=== PATIENT | male | born 1940 | race Caucasian/White ===

== ENCOUNTER 2017-09-24 02:27 | Emergency (ER) | payer MEDICARE ==
[2017-09-24 02:52] VITALS: O2SAT 95
[2017-09-24 03:29] LABS: Granulocyte Absolute (ANC) 0.95 (1.4-6.9); Hematocrit 32.2 % (42-50); Mean Cell Volume 93.6 fl (78-100); Mean Corpuscular Hgb Concent. 34.2 g/dl (32-36); Mean Platelet Volume 8.9 fl (6-9.5); Platelet Count 103 K/mm3 (150-450); Red Blood Count 3.44 M/mm3 (4.1-5.6); Red Cell Distribution Width 12.4 % (11.5-14.0); White Blood Count 2.5 K/mm3 (4.0-10.5)
[2017-09-24] MEDS ORDERED: Sodium Chloride 0.9% 1000 ML 1,000 ML IV SCH (03:30)
[2017-09-24] MEDS ORDERED: Sodium Chloride 0.9% 1000 ML 1,000 ML ONE (03:35)
--- NOTE | 2017-09-24 03:37 | ERPHSYRPT ---
- History of Present Illness Time Seen by Provider: 09/24/17 02:46 Historian: patient Exam Limitations: clinical condition Patient Subjective Stated Complaint: had a barium enema on monday. unable to pass stool tonight. brought a small piece of barium colored stool. states strained until small amount of bleeding. Triage Nursing Assessment: appears uncomfortable.. SOB with exertion. abdomen soft but tender on palpation. sstates rectal pain at this time.. unable to pass hard stool. Physician History: PATIENT WITH A HISTORY OR HIATAL HERNIA UNDER WENT A BARIUM ENEMA 4 DAYS AGO AND COMPLAINS OF CONSTIPATION X 3-4 DAYS. DENIES EMESIS ORD FEVER. Timing/Duration: day(s) Activities at Onset: none Quality: fullness (IN RECTUM) Abdominal Pain Onset Location: LLQ Pain Radiation: no radiation Severity of Pain-Max: mild Severity of Pain-Current: mild Modifying Factors: Improves With: defecating Previous symptoms: same symptoms as today Allergies/Adverse Reactions: No Known Drug Allergies Allergy (Unverified 07/06/17 08:58) Home Medications: Aspirin EC 81 mg [Ecotrin 81 mg] 81 mg PO DAILY 07/06/17 [History] Citalopram Hydrobromide [Citalopram HBr] 40 mg PO DAILY 07/06/17 [History] Clopidogrel Bisulfate [Plavix] 75 mg PO DAILY 07/06/17 [History] Cyclobenzaprine HCl 10 mg [Cyclobenzaprine 10 MG] 10 mg PO BID 07/06/17 [ History] Docusate Sodium [Stool Softener] 50 mg PO DAILY PRN PRN 07/06/17 [History] Donepezil HCl [Aricept] 5 mg PO DAILY 07/06/17 [History] Hydrocodone Bit/Acetaminophen [Hydrocodon-Acetaminophn 10-325] 1 each PO Q4- 6HPRN PRN 07/06/17 [History] Lisinopril 20 mg [Zestril 20 MG] 20 mg PO DAILY 07/06/17 [History] PANTOPRAZOLE 40 mg Tablet [Protonix 40MG Tablet] 40 mg PO DAILY 07/06/17 [ History] Psyllium Husk/Aspartame [Metamucil Fiber Singles Packet] 3.4 gm PO DAILY [History] Simvastatin 40 mg [Zocor 40 mg] 40 mg PO DAILY 07/06/17 [History] Diclofenac Sodium Gel [Voltaren GEL] 100 gm TP TID PRN 09/24/17 [History] Meclizine HCl 25 mg [Antivert 25 mg] 12.5 mg PO TID PRN 09/24/17 [History] Immunizations Up to Date: (unknown) - Review of Systems Constitutional: No Fever, No Chills Eyes: No Symptoms Ears, Nose, & Throat: No Symptoms Respiratory: No Cough, No Dyspnea Cardiac: No Symptoms, No Chest Pain, No Edema, No Syncope Abdominal/Gastrointestinal: Abdominal Pain, Constipation, No Nausea, No Vomiting , No Diarrhea Genitourinary Symptoms: No Symptoms, No Dysuria Musculoskeletal: No Symptoms, No Back Pain, No Neck Pain Skin: No Rash Neurological: No Dizziness, No Focal Weakness, No Sensory Changes Psychological: No Symptoms Endocrine: No Symptoms All Other Systems: Reviewed and Negative - Past Medical History Pertinent Past Medical History: Yes Neurological History: Dementia, Stroke, TIA ENT History: Cataracts Cardiac History: Coronary Artery Disease, High Cholesterol, Hypertension, Myocardial Infarction ([place]) Respiratory History: No Pertinent History Endocrine Medical History: No Pertinent History Musculoskeletal History: Arthritis GI Medical History: GERD History: No Pertinent History Psycho-Social History: No Pertinent History Male Reproductive Disorders: No Pertinent History - Past Surgical History Past Surgical History: Yes Neuro Surgical History: No Pertinent History Cardiac: Cardiac Catheterization, Cardiac Stent Respiratory: No Pertinent History Gastrointestinal: Hernia Repair Genitourinary: No Pertinent History Musculoskeletal: No Pertinent History Male Surgical History: No Pertinent History - Social History Smoking Status: Never smoker Exposure to second hand smoke: No Drug Use: none Patient Lives Alone: No - Nursing Vital Signs Nursing Vital Signs: Initial Vital Signs Temperature 97.8 F 09/24/17 02:36 Pulse Rate 89 09/24/17 02:36 Respiratory Rate 20 09/24/17 02:36 Blood Pressure 145/76 09/24/17 02:36 O2 Sat by Pulse Oximetry 95 09/24/17 02:36 Pain Scale Pain Intensity 0 - Physical Exam General Appearance: no apparent distress, alert Eye Exam: PERRL/EOMI, eyes nml inspection Ears, Nose, Throat Exam: normal ENT inspection, pharynx normal, moist mucous membranes Neck Exam: normal inspection, non-tender, supple, full range of motion Respiratory Exam: normal breath sounds, lungs clear, No respiratory distress Cardiovascular Exam: regular rate/rhythm, normal heart sounds Gastrointestinal/Abdomen Exam: soft, normal bowel sounds (LEFT LOWER QUAD TENDERNESS), No tenderness, No mass Rectal Exam: normal rectal tone, other (FIRM STOOL IN RECTAL VAULT) Back Exam: normal inspection, normal range of motion, No CVA tenderness, No vertebral tenderness Extremity Exam: normal inspection, normal range of motion, pelvis stable Neurologic Exam: alert, oriented x 3, cooperative, normal mood/affect, nml cerebellar function, sensation nml, No motor deficits Skin Exam: normal color, warm, dry SpO2 Interpretation: normal SpO2: 95 Oxygen Delivery: Room Air - CT Exams Abdomen/Pelvis CT Interpretation: Tele-radiologist Report (LARGE HIATAL HERNIA, NO SMALL BOWEL OBSTRUCTION. NO FLUID COLLECTION) Ordered Tests: Active Orders 24 hr Category Date Time Status IV Insertion STAT Care 09/24/17 03:15 Active ABDOMEN AND PELVIS W CONTRAST [CT] Stat Exams 09/24/17 03:15 Taken BMP Stat Lab 09/24/17 03:15 Completed CBC W DIFF Stat Lab 09/24/17 03:15 Completed Manual Differential NC Stat Lab 09/24/17 03:15 Completed UA W/RFX UR CULTURE Stat Lab 09/24/17 03:15 Ordered Medication Summary Generic Name Dose Route Start Last Admin Trade Name Freq PRN Reason Stop Dose Admin Sodium Chloride 1,000 mls @ 200 mls/hr 09/24/17 03:30 09/24/17 03:37 Sodium Chloride 0.9% 1000 Ml IV 10/24/17 03:29 200 mls/hr .Q5H MEET Administration Lab/Rad Data: Laboratory Result Diagrams 09/24/17 03:15 09/24/17 03:15 Laboratory Results 09/24/17 09/24/17 Range/Units 03:15 03:15 WBC 2.5 L (4.0-10.5) K/mm3 RBC 3.44 L (4.1-5.6) M/mm3 Hgb 11.0 L (12.5-18.0) gm/dl Hct 32.2 L (42-50) % MCV 93.6 (78-100) fl MCH 31.9 (26-32) pg MCHC 34.2 (32-36) g/dl RDW 12.4 (11.5-14.0) % Plt Count 103 L (150-450) K/mm3 MPV 8.9 (6-9.5) fl Sodium 127 L (136-145) mEq/L Potassium 4.5 (3.5-5.1) mEq/L Chloride 95 L (98-107) mEq/L Carbon Dioxide 28.3 (21-32) mEq/L Anion Gap 8.0 (5-15) MEQ/L BUN 18 (9-20) mg/dL Creatinine 1.27 (0.55-1.30) mg/dl Estimated GFR 58 ML/MIN Glucose 95 (70-110) MG/DL Calcium 8.8 (8.5-10.1) mg/dL - Progress Progress: improved Progress Note: 09/24/17 04:59 IMPROVED AFTER SOAP SUDS ENEMA Counseled pt/family regarding: lab results, diagnosis, need for follow-up, rad results - Departure Time of Disposition: 05:03 Departure Disposition: Home Clinical Impression: CONSTIPATION Condition: Stable Critical Care Time: No Referrals: HARDEEP VENTURA MD [Primary Care Provider] - Additional Instructions: CONTINUE ALL CURRENT MEDICATIONS. FOLLOWUP WITH YOUR FAMILY PHYSICIAN AND TRAVEL DIRECTOR.
[2017-09-24 03:44] LABS: Calcium 8.8 mg/dL (8.5-10.1); Carbon Dioxide 28.3 mEq/L (21-32); Creatinine 1 1.27 mg/dl (0.55-1.30); Potassium 4.5 mEq/L (3.5-5.1)
[2017-09-24 03:45] LABS: Mean Corpuscular Hemoglobin 31.9 pg (26-32)
[2017-09-24 05:41] VITALS: BP 108/68; PULSE 70
[2017-09-24 08:00] LABS: Hypochromia 1+; Lymphocytes 49 % (24-44); Monocyte 6 % (0.0-12.0); Neutrophils 45 % (36.-66.); Platelet Estimate NORMAL (NORMAL); Poikilocytosis 1+; Total Cells Counted 100
--- NOTE | 2017-09-24 09:04 | XRAY ---
Indication: Rectal bleeding. Constipation. Multiple contiguous axial images obtained through the abdomen and pelvis using 80 cc Isovue 370 contrast only. Comparison: January 14, 2011. Lung bases demonstrates minimal bibasilar dependent atelectasis. No infiltrate or effusion. Heart is not enlarged. Large right hernia with partial intrathoracic stomach. Dense colonic barium throughout produces extreme beam artifact limiting the study. Stomach and bowel loops appear nonobstructed. Now large free fluid/air. A few bilateral renal cysts, largest on the left measuring 1.7 cm. Previous right inguinal hernia repair. Remaining liver, gallbladder, pancreas, spleen, adrenal glands, kidneys, and bladder appear unremarkable. Mild scattered aortoiliac calcifications without AAA. Osseous structures intact again with moderate degenerative changes throughout the spine. Impression: 1. Limited exam due to diffuse dense colonic barium producing beam artifact. 2. No gross acute intra-abdominal/pelvic abnormalities. 3. Large hiatal hernia and bilateral renal cysts. Comment: Preliminary interpretation was made by [facility]. No discrepancy. CTDI 21.72
== END 2017-09-24 05:20 | disposition home or self-care (01) ==
LOC: ED 02:27
DX: K59.00 Constipation, unspecified (principal); R10.32 Left lower quadrant pain; Z79.899 Other long term (current) drug therapy
CPT/HCPCS: 36000; 36415; 74177; 80048; 85025; 96360; 99283; 99284

== ENCOUNTER 2017-11-29 22:44 | Emergency (ER) | payer MEDICARE ==
[2017-11-29 23:05] VITALS: BP 122/84; PULSE 73; O2SAT 99
--- NOTE | 2017-11-29 23:35 | ERPHSYRPT ---
- History of Present Illness Time Seen by Provider: 11/29/17 23:15 Source: patient, family Exam Limitations: clinical condition Patient Subjective Stated Complaint: Swelling to right hand, denies injury. States finger are sore distal to site. Triage Nursing Assessment: Pt presents to the ED with complaints of right hand swelling that began today at approximately 1800. Pt states no known injury to hand. Pt states fingers are sore distal to swelling. No fevers, no wound, no drainage noted. No distress noted at this time. Skin PWD. Physician History: PATIENT WITH A HISTORY OF HYPERTENSION, COMPLAINS OF ACUTE ONSET OF RIGHT HAND SWELLING WITH REDNESS AT 6 PM TONIGHT. DENIES INJURY OR TRAUMA. HAS PAIN OVER HAND UPON RANGE OF MOTION OF FINGERS. Occurred: just prior to arrival Method of Injury: unknown Quality: constant Severity of Pain-Max: mild Severity of Pain-Current: mild Extremities Pain Location: hand: right Associated Symptoms: none Allergies/Adverse Reactions: No Known Drug Allergies Allergy (Unverified 07/06/17 08:58) Home Medications: Aspirin EC 81 mg [Ecotrin 81 mg] 81 mg PO DAILY 07/06/17 [History] Citalopram Hydrobromide [Citalopram HBr] 40 mg PO DAILY 07/06/17 [History] Clopidogrel Bisulfate [Plavix] 75 mg PO DAILY 07/06/17 [History] Cyclobenzaprine HCl 10 mg [Cyclobenzaprine 10 MG] 10 mg PO BID 07/06/17 [ History] Docusate Sodium [Stool Softener] 50 mg PO DAILY PRN PRN 07/06/17 [History] Donepezil HCl [Aricept] 5 mg PO DAILY 07/06/17 [History] Hydrocodone Bit/Acetaminophen [Hydrocodon-Acetaminophn 10-325] 1 each PO Q4- 6HPRN PRN 07/06/17 [History] Lisinopril 20 mg [Zestril 20 MG] 20 mg PO DAILY 07/06/17 [History] PANTOPRAZOLE 40 mg Tablet [Protonix 40MG Tablet] 40 mg PO DAILY 07/06/17 [ History] Psyllium Husk/Aspartame [Metamucil Fiber Singles Packet] 3.4 gm PO DAILY [History] Simvastatin 40 mg [Zocor 40 mg] 40 mg PO DAILY 07/06/17 [History] Diclofenac Sodium Gel [Voltaren GEL] 100 gm TP TID PRN 09/24/17 [History] Meclizine HCl 25 mg [Antivert 25 mg] 12.5 mg PO TID PRN 09/24/17 [History] Hx Tetanus, Diphtheria Vaccination/Date Given: Yes Hx Influenza Vaccination/Date Given: Yes Hx Pneumococcal Vaccination/Date Given: Yes Immunizations Up to Date: Yes - Review of Systems Constitutional: No Fever, No Chills Eyes: No Symptoms Ears, Nose, & Throat: No Symptoms Respiratory: No Cough, No Dyspnea Cardiac: No Chest Pain, No Edema, No Syncope Abdominal/Gastrointestinal: No Abdominal Pain, No Nausea, No Vomiting, No Diarrhea Genitourinary Symptoms: No Dysuria Musculoskeletal: Joint Pain, Joint Swelling, No Back Pain, No Neck Pain Skin: No Rash Neurological: No Dizziness, No Focal Weakness, No Sensory Changes Psychological: No Symptoms Endocrine: No Symptoms All Other Systems: Reviewed and Negative - Past Medical History Pertinent Past Medical History: Yes Neurological History: Dementia, Stroke, TIA ENT History: Cataracts Cardiac History: Coronary Artery Disease, High Cholesterol, Hypertension, Myocardial Infarction ([place]) Respiratory History: No Pertinent History Endocrine Medical History: No Pertinent History Musculoskeletal History: Arthritis GI Medical History: GERD History: No Pertinent History Psycho-Social History: No Pertinent History Male Reproductive Disorders: No Pertinent History - Past Surgical History Past Surgical History: Yes Neuro Surgical History: No Pertinent History Cardiac: Cardiac Catheterization, Cardiac Stent Respiratory: No Pertinent History Gastrointestinal: Hernia Repair Genitourinary: No Pertinent History Musculoskeletal: No Pertinent History Male Surgical History: No Pertinent History - Social History Smoking Status: Never smoker Exposure to second hand smoke: No Drug Use: none Patient Lives Alone: No - Nursing Vital Signs Nursing Vital Signs: Initial Vital Signs Temperature 98.7 F 11/29/17 23:01 Pulse Rate 73 11/29/17 23:01 Respiratory Rate 16 11/29/17 23:01 Blood Pressure 122/84 11/29/17 23:01 O2 Sat by Pulse Oximetry 99 11/29/17 23:01 Pain Scale Pain Intensity 3 - Physical Exam General Appearance: no apparent distress Hand Exam: soft tissue tenderness, swelling (SLIGHT ECCHYMOSIS MID TO DISTAL 3RD TO 4TH METACARPAL EXTENDS TO MCP JOINTS WITH SWELLILNG AND TENDERNESS.) SpO2 Interpretation: normal SpO2: 99 Oxygen Delivery: Room Air - Radiology Exams Right Hand X-ray Interpretation: Interpreted by me, Negative, No Fracture (SOFT TISSUE SWELLING, IVY DEGENERATIVE ARTHRITIS) Ordered Tests: Active Orders 24 hr Category Date Time Status HAND (MINIMUM 3 VIEWS) Stat Exams 11/30/17 00:17 Taken Uric Acid Stat Lab 11/29/17 23:35 Completed Lab/Rad Data: Laboratory Results 11/30/17 Range/Units 00:05 Uric Acid 4.8 (3.5-7.2) mg/dL - Progress Counseled pt/family regarding: lab results, diagnosis, need for follow-up - Departure Time of Disposition: 01:43 Departure Disposition: Home Clinical Impression: CONTUSION RIGHT HAND Condition: Stable Critical Care Time: No Referrals: HARDEEP VENTURA MD [Primary Care Provider] - Additional Instructions: CONTINUE ALL CURRENT MEDICATIONS, HOLD ASPIRIN FOR 5 DAYS BUT CONTINUE PLAVIX. APPLY ICE OVER HAND SWELLING EVERY 4 HOURS, 30 MINUTES FOR 48 HOURS . CONSULT YOUR PRIMARY CARE PROVIDER FOR FOLLOWUP IN 5-7 DAYS. TYLENOL EVERY 4 HOURS NEEDED FOR PAIN.
--- NOTE | 2017-11-30 09:05 | XRAY ---
Indication: Swelling and erythema. No known injury. Comparison: None 3 views of the right hand demonstrates moderate degenerative changes of the 1/2/3 MCP joints with lesser degree of the remaining MCP. Advanced degenerative changes of the 1st metacarpal multangular articulation with heterotopic ossification. Mild degenerative changes of all IP joints. No acute fracture, dislocation, or soft tissue abnormalities. Impression: Degenerative changes. Nothing acute.
== END 2017-11-30 01:49 | disposition home or self-care (01) ==
LOC: ED 22:44
DX: S60.221A Contusion of right hand, initial encounter (principal); M79.641 Pain in right hand; Z79.01 Long term (current) use of anticoagulants; Z79.899 Other long term (current) drug therapy
CPT/HCPCS: 36415; 73130; 84550; 99281; 99283

== ENCOUNTER 2018-02-06 07:12 | Day surgery (SDC) | payer MEDICARE ==
[~2018-02-06 07:12] MED LIST: Lactated Ringers 1,000 ML IV ONE
[2018-02-06] MEDS ORDERED: DIPRIVAN 200 MG/20 ML IV ONE (07:13)
[2018-02-06] MEDS ORDERED: Lactated Ringers 1,000 ML IV SCH (08:00)
[2018-02-06] MEDS ORDERED: TETRACAINE 0.5% STERI-UNIT SOL OP ONE ×2 (08:00)
[2018-02-06] MEDS ORDERED: Ak-Dilate OPHTHALMIC*** 0.71 ML, Cyclogyl 1% OPHTH SOL 5 ML 0.71 ML, GATIFLOXACIN 0.5% ... OP ONE ×4 (08:00)
[2018-02-06] MEDS ORDERED: Epinephrine Preservative Free 1 MG/ML INTRAOP ONE (09:15)
[2018-02-06] MEDS ORDERED: BETADINE 5% OPHTHALMIC 30 ML OP ONE (09:15)
[2018-02-06] MEDS ORDERED: LIDOCAINE HCL 1% AMPUL 5 ML IJ ONE (09:15)
[2018-02-06] MEDS ORDERED: BSS 500 ML, Fortaz/Tazicef 1 GM** 0.2 G IO ONE ×2 (09:15)
[2018-02-06 10:42] VITALS: O2SAT 99
[2018-02-06 10:56] VITALS: BP 132/66; PULSE 71
[2018-02-06] MEDS ORDERED: ACETAZOLAMIDE 250 MG TABLET PO ONE (11:00)
[2018-02-06] MEDS ORDERED: Zofran 4 MG/2 ML VIAL IV PRN (11:00)
--- NOTE | 2018-02-07 08:58 | OP ---
DATE/TIME OF OPERATION: 02/06/2018 0945 TIME DICTATED: 1246 PREOPERATIVE DIAGNOSIS: Senile cataract of left eye. POSTOPERATIVE DIAGNOSIS: Senile cataract of left eye. SURGEON: Cory Marina MD INSOLE TAPE STITCHER UCO: NONE OPERATION: Cataract extraction of left eye with an intraocular lens implant STANDARD __X___ COMPLEX ANESTHESIA: __X____ Monitored anesthesia care in combination with topical and intra-cameral anesthesia (because of the established specific risk of reflux, arrhythmias, or an anxiety attack associated with ocular manipulation as well as difficulty of the doctor of podiatry to manage such potentially catastrophic events while simultaneously attempting to complete the surgical procedure, it was deemed necessary for the patient's safety to have an anesthesiologist or a nurse heel seat sander present during the procedure whenever possible. The anesthesiologist or the nurse heel seat sander was utilized to monitor and regulate the intravenous sedation of the patient, so the patient was cooperative, relaxed, and comfortable). Topical anesthesia using Tetracaine eye drops together with intra cameral anesthesia using Lidocaine 1% MPF. The nurse was utilized to monitor the patient. ANESTHESIA PROVIDER: Barrera Redman CRNA. COMPLICATIONS: None. BLOOD LOSS: None INDICATIONS: The patient is undergoing cataract surgery in the hopes of eliminating the visual complaints and difficulty. PROCEDURE: After arriving at the facility's outpatient surgery area, an IV was started; the patient was given 5 mg of p.o. Versed. (If an anesthesia provider was not monitoring the patient) The patient was then given topical anesthetic Tetracaine eye drops. A cotton pellet was soaked into a solution of a combination of Zymaxid 0.5%, Chidi-Synephrine 2.5% and Ocufen (other drops might have been substituted referenced in the patient's record). The pellet was inserted by the RN into the lower conjunctival cul-de-sac with a sterile forceps and left for 20 minutes. The pellet was then removed by the RN with a sterile forceps before taking the patient to the operating room. The preoperative area nurse identified the patient and marked the correct eye to be operated on. I identified the correct eye to be operated on and marked it appropriately in the outpatient surgery area. The patient was then taken into the operating room. Tetracaine eye drops were installed again in the correct eye. The eyelids and the lashes and the lid margins were scrubbed with Betadine solution. One drop of the diluted Betadine solution was placed in the conjunctival cul-de-sac for 45 seconds and then was irrigated. A drop of Tetracaine Gel was placed in the conjunctival cul-de-sac. The patient's forehead was taped to secure it during the procedure. The patient was monitored. The patient was then draped in the usual way for this procedure. An eye speculum was used to separate the eyelids. The eye was then fixated and a temporal 2.5 mm incision was made in the clear cornea temporally at the limbus. Through the incision, 0.25 cc of 1% non-preserved lidocaine was injected into the anterior chamber for intracameral anesthesia. The anterior chamber was then filled with viscoelastic. The pupil was small. I felt that it would be safer to mechanically dilate the pupil. A Malyugin ring was used at this point which dilated the pupil. That was removed at the end of the procedure prior to aspiration of the viscoelastic from the anterior chamber and posterior to the intraocular lens implant. The cataract had a great amount of cortical changes. That rendered seeing the anterior capsule difficult for a safe performance of an anterior capsulotomy. I injected an air bubble into the anterior chamber. I then injected 1 ML of vision blue solution into the anterior chamber. The vision blue solution was irrigated from the anterior chamber after 30 seconds. The anterior capsule was stained which facilitated performing the anterior capsulotomy safely. After that was completed, a cystotome was introduced into the anterior chamber and a round anterior capsulotomy was performed. The capsule was removed by a forceps. Hydrodissection was next carried utilizing a 25-gauge cannula and balanced salt solution to delineate the cortical material from the capsule and the nucleus from the cortical material. The nucleus was rotated freely into the capsular bag with no difficulty. The phaco tip of the [employer] Phacoemulsifier was introduced into the anterior chamber and two grooves were made into the nucleus 90 degrees apart. Using two spatulas resulted into the nucleus being fractured into four quadrants. The phaco tip was then used to remove each quadrant of the nucleus. Viscoelastic was used during this process to protect the corneal endothelium. Once the entire nucleus was removed, the phaco tip then was removed and the irrigation tip was introduced into the eye and the cortex was removed. The posterior capsule was polished. It was noticed that there was a tear into the posterior capsule with few vitreous strands into the pupil plan. An anterior vitrectomy was performed. A 22.00 diopter, [id number], posterior chamber lens implant, was inspected and found to be grossly normal. The implant was inserted into the implant injector cartridge; Viscoelastic again was introduced into the anterior chamber, which filled the capsular bag. The implant injector's cartridge tip was placed at the limbal wound and the posterior chamber implant was released into the capsular bag and rotated appropriately. The implant was found to be into the capsular bag and it was centered. __X___ 0.2 ml of Tri-Moxi was introduced via 27 gauge cannula into the vitreous cavity through the ciliary processes. Viscoelastic was aspirated from the anterior chamber and posterior to the intraocular lens implant from the capsular bag using the irrigating tip. The anterior chamber was irrigated and filled with 5 cc antibiotic solution (500 cc of BSS plus 2 ml of Fortaz 100 mg/ml) ( if patient was not allergic to the medication). The lips of the corneal incision were hydrated using BSS solution. The anterior chamber was checked and found to be water tight. One drop each of antibiotic, steroid and NSAID drops (refer to chart for drops used) were placed in the conjunctival cul-de-sac of the operated eye. Patient tolerated the procedure quite well and left the operating room in satisfactory condition. DISCHARGE SUMMARY: The patient was released in stable condition. The patient and those with the patient were given an instruction sheet as of how to care for the eye after surgery as well as counseling on any abnormal laboratory studies by the postoperative RN. The patient was also given an appointment card for follow-up in the office and is to call immediately for any difficulties including but not limited to pain in the eye, decreased vision, discharge from the eye, headache and or fever. DISCHARGE DIAGNOSIS: Pseudophakia of left eye
== END 2018-02-06 11:10 | disposition home or self-care (01) ==
LOC: SDC 07:12
PROVIDERS: ATTEND Ophthalmology
DX: H25.9 Unspecified age-related cataract (principal); I51.9 Heart disease, unspecified; E78.00 Pure hypercholesterolemia, unspecified; I10 Essential (primary) hypertension; K21.9 Gastro-esophageal reflux disease without esophagitis; Z79.899 Other long term (current) drug therapy
CPT/HCPCS: 66984; C1780; 99100; J0171; J2704; A9270-GY

== ENCOUNTER 2018-03-06 07:41 | Day surgery (SDC) | payer MEDICARE ==
[2018-03-06] MEDS ORDERED: DIPRIVAN 200 MG/20 ML IV ONE (07:42)
[2018-03-06] MEDS ORDERED: TETRACAINE 0.5% STERI-UNIT SOL OP ONE ×2 (08:00)
[2018-03-06] MEDS ORDERED: Ak-Dilate OPHTHALMIC*** 0.71 ML, Cyclogyl 1% OPHTH SOL 5 ML 0.71 ML, GATIFLOXACIN 0.5% ... OP ONE ×4 (08:00)
[2018-03-06] MEDS ORDERED: Lactated Ringers 1,000 ML IV SCH (08:00)
[2018-03-06] MEDS ORDERED: Lactated Ringers 1,000 ML IV ONE (08:01)
[2018-03-06] MEDS ORDERED: Zofran 4 MG/2 ML VIAL IV PRN (10:00)
[2018-03-06] MEDS ORDERED: ACETAZOLAMIDE 250 MG TABLET PO ONE (10:00)
[2018-03-06] MEDS ORDERED: LIDOCAINE HCL 1% AMPUL 5 ML IJ ONE (12:00)
[2018-03-06] MEDS ORDERED: Epinephrine Preservative Free 1 MG/ML INTRAOP ONE (12:00)
[2018-03-06] MEDS ORDERED: BSS 500 ML, Fortaz/Tazicef 1 GM** 0.2 G IO ONE ×2 (12:00)
[2018-03-06] MEDS ORDERED: BETADINE 5% OPHTHALMIC 30 ML OP ONE (12:00)
[2018-03-06 12:15] VITALS: BP 132/77; O2SAT 95
[2018-03-06 12:23] VITALS: PULSE 60
--- NOTE | 2018-03-06 13:37 | OP ---
DATE/TIME OF OPERATION: 03/06/2018 1049 TIME DICTATED: 1258 PREOPERATIVE DIAGNOSIS: Senile cataract of right eye. POSTOPERATIVE DIAGNOSIS: Senile cataract of right eye. SURGEON: Cory Marina MD BICYCLE REPAIR TECHNICIAN: None. OPERATION: Cataract extraction of right eye with an intraocular lens implant. STANDARD __X___ COMPLEX ANESTHESIA: MAC. ___X___ Monitored anesthesia care in combination with topical and intra-cameral anesthesia (because of the established specific risk of reflux, arrhythmias, or an anxiety attack associated with ocular manipulation as well as difficulty of the quality assurance/r&d lab technician to manage such potentially catastrophic events while simultaneously attempting to complete the surgical procedure, it was deemed necessary for the patient's safety to have an anesthesiologist or a nurse accounting associate present during the procedure whenever possible. The anesthesiologist or the nurse accounting associate was utilized to monitor and regulate the intravenous sedation of the patient, so the patient was cooperative, relaxed, and comfortable). Topical anesthesia using Tetracaine eye drops together with intra cameral anesthesia using Lidocaine 1% MPF. The nurse was utilized to monitor the patient. ANESTHESIA PROVIDER: Walter Redman CRNA. COMPLICATIONS: None. BLOOD LOSS: None. INDICATIONS: The patient is undergoing cataract surgery in the hopes of eliminating the visual complaints and difficulty. PROCEDURE: After arriving at the facility's outpatient surgery area, an IV was started; the patient was given 5 mg of p.o. Versed. (If an anesthesia provider was not monitoring the patient) The patient was then given topical anesthetic Tetracaine eye drops. A cotton pellet was soaked into a solution of a combination of Zymaxid 0.5%, Chidi-Synephrine 2.5% and Ocufen (other drops might have been substituted referenced in the patient's record). The pellet was inserted by the RN into the lower conjunctival cul-de-sac with a sterile forceps and left for 20 minutes. The pellet was then removed by the RN with a sterile forceps before taking the patient to the operating room. The preoperative area nurse identified the patient and marked the correct eye to be operated on. I identified the correct eye to be operated on and marked it appropriately in the outpatient surgery area. The patient was then taken into the operating room. Tetracaine eye drops were installed again in the correct eye. The eyelids and the lashes and the lid margins were scrubbed with Betadine solution. One drop of the diluted Betadine solution was placed in the conjunctival cul-de-sac for 45 seconds and then was irrigated. A drop of Tetracaine Gel was placed in the conjunctival cul-de-sac. The patient's forehead was taped to secure it during the procedure. The patient was monitored. The patient was then draped in the usual way for this procedure. An eye speculum was used to separate the eyelids. The eye was then fixated and a temporal 2.5 mm incision was made in the clear cornea temporally at the limbus. Through the incision, 0.25 cc of 1% non-preserved lidocaine was injected into the anterior chamber for intracameral anesthesia. The anterior chamber was then filled with viscoelastic. The pupil was small. I felt that it would be safer to mechanically dilate the pupil. A Malyugin ring was used at this point which dilated the pupil. That was removed at the end of the procedure prior to aspiration of the viscoelastic from the anterior chamber and posterior to the intraocular lens implant. The cataract had a great amount of cortical changes. That rendered seeing the anterior capsule difficult for a safe performance of an anterior capsulotomy. I injected an air bubble into the anterior chamber. I then injected 1 ML of vision blue solution into the anterior chamber. The vision blue solution was irrigated from the anterior chamber after 30 seconds. The anterior capsule was stained which facilitated performing the anterior capsulotomy safely. After that was completed, a cystotome was introduced into the anterior chamber and a round anterior capsulotomy was performed. The capsule was removed by a forceps. Hydrodissection was next carried utilizing a 25-gauge cannula and balanced salt solution to delineate the cortical material from the capsule and the nucleus from the cortical material. The nucleus was rotated freely into the capsular bag with no difficulty. The phaco tip of the [employer] Phacoemulsifier was introduced into the anterior chamber and two grooves were made into the nucleus 90 degrees apart. Using two spatulas resulted into the nucleus being fractured into four quadrants. The phaco tip was then used to remove each quadrant of the nucleus. Viscoelastic was used during this process to protect the corneal endothelium. Once the entire nucleus was removed, the phaco tip then was removed and the irrigation tip was introduced into the eye and the cortex was removed. The posterior capsule was polished. It was noticed that there was a tear into the posterior capsule with few vitreous strands into the pupil plan. An anterior vitrectomy was performed. A 22.00 diopter, [id number], posterior chamber lens implant, was inspected and found to be grossly normal. The implant was inserted into the implant injector cartridge; Viscoelastic again was introduced into the anterior chamber, which filled the capsular bag. The implant injector's cartridge tip was placed at the limbal wound and the posterior chamber implant was released into the capsular bag and rotated appropriately. The implant was found to be into the capsular bag and it was centered. ___X__ 0.2 ml of Tri-Moxi was introduced via 27 gauge cannula into the vitreous cavity through the ciliary processes. Viscoelastic was aspirated from the anterior chamber and posterior to the intraocular lens implant from the capsular bag using the irrigating tip. The anterior chamber was irrigated and filled with 5 cc antibiotic solution (500 cc of BSS plus 2 ml of Fortaz 100 mg/ml) ( if patient was not allergic to the medication). The lips of the corneal incision were hydrated using BSS solution. The anterior chamber was checked and found to be water tight. One drop each of antibiotic, steroid and NSAID drops (refer to chart for drops used) were placed in the conjunctival cul-de-sac of the operated eye. Patient tolerated the procedure quite well and left the operating room in satisfactory condition. DISCHARGE SUMMARY: The patient was released in stable condition. The patient and those with the patient were given an instruction sheet as of how to care for the eye after surgery as well as counseling on any abnormal laboratory studies by the postoperative RN. The patient was also given an appointment card for follow-up in the office and is to call immediately for any difficulties including but not limited to pain in the eye, decreased vision, discharge from the eye, headache and or fever. DISCHARGE DIAGNOSIS: Pseudophakia of right eye.
== END 2018-03-06 12:10 | disposition home or self-care (01) ==
LOC: SDC 07:41
PROVIDERS: ATTEND Ophthalmology
DX: H25.9 Unspecified age-related cataract (principal); I51.9 Heart disease, unspecified; E78.00 Pure hypercholesterolemia, unspecified; I10 Essential (primary) hypertension; K21.9 Gastro-esophageal reflux disease without esophagitis
CPT/HCPCS: 66984; 67005; C1780; 99100; J0171; J2704; A9270-GY

== ENCOUNTER 2019-01-11 18:53 | Observation (INO) | payer MEDICARE ==
--- NOTE | 2019-01-11 19:26 | ERPHSYRPT ---
- History of Present Illness Time Seen by Provider: 01/11/19 19:10 Source: family Exam Limitations: clinical condition Patient Subjective Stated Complaint: Weakness Triage Nursing Assessment: Patient's brought back to ED via w/c and transferred with assist of 2. Patient unable to respond or answer any questions. Patient's reports at 1730 patient was up and moving, talking. He had mowed the yard earlier and even rode his four-wade to the river. Upon assessment pupils equal, but sluggish. Patient mumbling and unable to follow commands at this time. Patient had been sitting in the chair and felt sick around 1700. Blood sugar at this time 108 Physician History: Pt was sitting in a chair, when entered the room, he was leaning forward at 17:30 PM, c/o not feeling, well, nauseated, vomited once after arrival. He was doing at his normal activity level until around 17-17:30. when he suddenly became ill, he arrived with family car, had to remove from car by nursing staff , he was barely responsive, nonverbal, he is lethargic, but opens eyes and responds, with nodding and opening, closing eyes. He denies any pain, except when asking about chest pain, he nods. Timing/Duration: hour(s) (2) Severity: severe Character of Deficits: new weakness, impaired speech Deficits: no difficulties Baseline/Normal Cognition: alert oriented x 3 Current Cognition: poor alertness Baseline Gait: walks only w/assistance Associated Symptoms: nausea, vomiting, weakness (generalized) Allergies/Adverse Reactions: No Known Drug Allergies Allergy (Verified 01/11/19 19:09) Home Medications: Aspirin EC 81 mg [Ecotrin 81 mg] 81 mg PO DAILY 07/06/17 [History] Cyclobenzaprine HCl 10 mg [Cyclobenzaprine 10 MG] 10 mg PO BID 07/06/17 [ History] Hydrocodone Bit/Acetaminophen [Hydrocodon-Acetaminophn 10-325] 1 each PO Q4- 6HPRN PRN 07/06/17 [History] Lisinopril 20 mg [Zestril 20 MG] 20 mg PO DAILY 07/06/17 [History] Simvastatin 40 mg [Zocor 40 mg] 40 mg PO HS 07/06/17 [History] Donepezil HCl 10 mg [Aricept 10 MG] 5 mg PO HS 01/23/18 [History] Citalopram Hydrobromide [Citalopram HBr] 40 mg PO DAILY 03/06/18 [History] Hx Tetanus, Diphtheria Vaccination/Date Given: Yes Hx Influenza Vaccination/Date Given: Yes Hx Pneumococcal Vaccination/Date Given: Yes Immunizations Up to Date: Yes - Review of Systems All Other Systems: Unable due to condition - Past Medical History Pertinent Past Medical History: Yes Neurological History: Dementia, Stroke, TIA ENT History: Cataracts Cardiac History: Coronary Artery Disease, High Cholesterol, Hypertension, Myocardial Infarction (NH) Respiratory History: No Pertinent History Endocrine Medical History: No Pertinent History Musculoskeletal History: Arthritis GI Medical History: GERD History: No Pertinent History Psycho-Social History: No Pertinent History Male Reproductive Disorders: No Pertinent History Other Medical History: Cardiac stent x 4. - Past Surgical History Past Surgical History: Yes Neuro Surgical History: No Pertinent History Cardiac: Cardiac Catheterization, Cardiac Stent Respiratory: No Pertinent History Gastrointestinal: Hernia Repair, Other Genitourinary: No Pertinent History Musculoskeletal: No Pertinent History Male Surgical History: No Pertinent History Other Surgical History: hiatal hernia surgery - Social History Smoking Status: Never smoker Exposure to second hand smoke: No Drug Use: none Patient Lives Alone: No - Nursing Vital Signs Nursing Vital Signs: Initial Vital Signs Temperature 98.4 F 01/11/19 18:57 Pulse Rate 85 01/11/19 18:57 Respiratory Rate 20 01/11/19 18:57 Blood Pressure 167/90 01/11/19 18:57 O2 Sat by Pulse Oximetry 97 01/11/19 18:57 Pain Scale Pain Intensity 0 - Dao Coma Scale Best Eye Response (Dao): (3) open to voice Best Verbal Response (Seneca): (2) incomprehsible sounds Best Motor Response (Dao): (3) flexion to pain [place] Total: 8 - Physical Exam General Appearance: mild distress Eye Exam: bilateral eye: PERRL, EOMI Ears, Nose, Throat Exam: pharynx normal Neck Exam: normal inspection, supple, No mass, No carotid bruit, No JVD Respiratory: normal breath sounds, lungs clear, airway intact Cardiovascular: regular rate/rhythm, normal heart sounds, normal peripheral pulses, No murmur Gastrointestinal: soft, normal bowel sounds, No tenderness, No distention, No mass, No pulsatile mass Back Exam: normal inspection Extremity Exam: normal inspection, No pedal edema Peripheral Pulses: carotid (R): 3+, carotid (L): 3+, femoral (R): 3+, femoral (L ): 3+, dorsalis-pedis (R): 2+, dorsalis-pedis (L): 2+ Mental Status: lethargy ball warper tender Exam: No facial asymmetry, No facial droop Motor/Sensory: weak motor strength RUE, weak motor strength LUE, weak motor strength RLE, weak motor strength LLE DTR: bicep (R): 2+, bicep (L): 2+, knee (R): 2+, knee (L): 2+, ankle (R): 2+, ankle (L): 2+ Skin Exam: normal color, warm, dry, No rash, No petechiae, No cyanosis SpO2 Interpretation: normal SpO2: 97 O2 Delivery: Room Air - Course Nursing assessment & vital signs reviewed: Yes EKG Interpreted by Me: RATE (67/min), NORMAL AXIS, Right Bundle Branch Block, Non-specific ST Changes, Other (frequent PVC-s) - Radiology Exams Chest X-ray Interpretation: Interpreted by me, Negative - CT Exams Head CT Interpretation: Negative, Tele-radiologist Report Ordered Tests: Active Orders 24 hr Category Date Time Status Supervisor Pipe Manufacture STAT Care 01/11/19 19:21 Active EKG-ER Only STAT Care 01/11/19 19:20 Active IV Insertion STAT Care 01/11/19 19:20 Active Oxygen-ED Only Nasal Cannula 2 lpm Care 01/11/19 19:20 Active CHEST 1 VIEW (PORTABLE) Stat Exams 01/11/19 19:21 Ordered HEAD WITHOUT CONTRAST [CT] Stat Exams 01/11/19 19:22 Taken CBC W DIFF Stat Lab 01/11/19 19:15 Completed CK-Creatinine Phosphokinase Stat Lab 01/11/19 19:15 Completed CMP Stat Lab 01/11/19 19:15 Completed CULTURE,URINE Stat Lab 01/11/19 19:10 Received NT PRO BNP Stat Lab 01/11/19 19:15 Completed PROTIME WITH INR Stat Lab 01/11/19 19:15 Completed PTT Stat Lab 01/11/19 19:15 Completed TROPONIN Q3H Lab 01/11/19 19:15 Completed TROPONIN Q3H Lab 01/11/19 22:30 Ordered TROPONIN Q3H Lab 01/12/19 01:30 Ordered TROPONIN Q3H Lab 01/12/19 04:30 Ordered TROPONIN Q3H Lab 01/12/19 07:30 Ordered UA W/RFX UR CULTURE Stat Lab 01/11/19 19:10 Completed Urine Triage Profile Stat Lab 01/11/19 19:10 Completed Medication Summary Generic Name Dose Route Start Last Admin Trade Name Freq PRN Reason Stop Dose Admin Sodium Chloride 1,000 mls @ 100 mls/hr 01/11/19 20:45 01/11/19 20:46 Sodium Chloride 0.9% 1000 Ml IV 02/10/19 20:44 100 mls/hr .Q10H MEET Administration Discontinued Medications Generic Name Dose Route Start Last Admin Trade Name Freq PRN Reason Stop Dose Admin Aspirin 325 mg 01/12/19 20:35 Ecotrin 325 Mg PO 01/12/19 20:36 NOW ONE Aspirin Confirm 01/11/19 20:43 Baby Aspirin 81 Mg Chew Administered 01/11/19 20:44 Dose 324 mg .ROUTE .STK-MED ONE Aspirin 324 mg 01/11/19 20:48 01/11/19 20:49 Baby Aspirin 81 Mg Chew PO 01/11/19 20:49 324 mg STAT ONE Administration Ondansetron HCl Confirm 01/11/19 19:52 Zofran 4 Mg/2 Ml Vial Administered 01/11/19 19:53 Dose 4 mg .ROUTE .STK-MED ONE Ondansetron HCl 4 mg 01/11/19 19:58 01/11/19 20:01 Zofran 4 Mg/2 Ml Vial IV 01/11/19 19:59 4 mg STAT ONE Administration Lab/Rad Data: Laboratory Result Diagrams 01/11/19 19:15 01/11/19 19:15 Laboratory Results 01/11/19 01/11/19 01/11/19 Range/Units 19:15 19:15 19:15 WBC (4.0-10.5) K/mm3 RBC (4.1-5.6) M/mm3 Hgb (12.5-18.0) gm/dl Hct (42-50) % MCV (78-100) fl MCH (26-32) pg MCHC (32-36) g/dl RDW (11.5-14.0) % Plt Count (150-450) K/mm3 MPV (6-9.5) fl Gran % (36.0-66.0) % Eos # (Auto) (0-0.5) Absolute Lymphs (auto) (1.0-4.6) Absolute Monos (auto) (0.0-1.3) Lymphocytes % (24.0-44.0) % Monocytes % (0.0-12.0) % Eosinophils % (0.00-5.0) % Basophils % (0.0-0.4) % Absolute Granulocytes (1.4-6.9) Basophils # (0-0.4) PT 11.7 (8.83-12.87) SECONDS INR 1.01 (0.8-3.0) APTT 26.9 (24.1-36.1) SECONDS Sodium 140 (137-145) mmol/L Potassium 4.1 (3.5-5.1) mmol/L Chloride 103 (98-107) mmol/L Carbon Dioxide 24 (22-30) mmol/L Anion Gap 16.7 H (5-15) MEQ/L BUN 24 H (9-20) mg/dL Creatinine 1.08 (0.66-1.25) mg/dL Estimated GFR > 60.0 ML/MIN Glucose 112 H (74-106) mg/dL Calcium 9.8 (8.4-10.2) mg/dL Total Bilirubin 1.00 (0.2-1.3) mg/dL AST 31 (17-59) U/L ALT 16 (0-50) U/L Alkaline Phosphatase 77 (38-126) U/L Creatine Kinase 88 (55-170) U/L Troponin I < 0.012 (0.000-0.034) ng/mL NT-Pro-B Natriuret Pep 537 (0-1800) pg/mL Serum Total Protein 8.0 (6.3-8.2) g/dL Albumin 4.7 (3.5-5.0) g/dL Urine Color (YELLOW) Urine Appearance (CLEAR) Urine pH (5-6) Ur Specific [place] (1.005-1.025) Urine Protein (Negative) Urine Ketones (NEGATIVE) Urine Blood (0-5) Corey/ul Urine Nitrite (NEGATIVE) Urine Bilirubin (NEGATIVE) Urine Urobilinogen (0-1) mg/dL Ur Leukocyte Esterase (NEGATIVE) Urine WBC (Auto) (0-5) /HPF Urine RBC (Auto) (0-2) /HPF U Epithel Cells (Auto) (FEW) /HPF Urine Bacteria (Auto) (NEGATIVE) /HPF Urine Mucus (Auto) (NEGATIVE) /HPF Urine Culture Reflexed (NO) Urine Glucose (NEGATIVE) mg/dL Urine Opiates Level (NEGATIVE) Ur Methadone (NEGATIVE) Urine Barbiturates (NEGATIVE) Ur Phencyclidine (PCP) (NEGATIVE) Urine Amphetamine (NEGATIVE) U Benzodiazepine Level (NEGATIVE) Urine Cocaine (NEGATIVE) Urine Marijuana (THC) (NEGATIVE) 01/11/19 01/11/19 01/11/19 Range/Units 19:15 19:10 19:10 WBC 3.6 L (4.0-10.5) K/mm3 RBC 4.39 (4.1-5.6) M/mm3 Hgb 13.9 (12.5-18.0) gm/dl Hct 42.0 (42-50) % MCV 95.7 (78-100) fl MCH 31.7 (26-32) pg MCHC 33.1 (32-36) g/dl RDW 13.1 (11.5-14.0) % Plt Count 131 L (150-450) K/mm3 MPV 9.6 H (6-9.5) fl Gran % 53.1 (36.0-66.0) % Eos # (Auto) 0.04 (0-0.5) Absolute Lymphs (auto) 1.07 (1.0-4.6) Absolute Monos (auto) 0.55 (0.0-1.3) Lymphocytes % 30.1 (24.0-44.0) % Monocytes % 15.4 H (0.0-12.0) % Eosinophils % 1.1 (0.00-5.0) % Basophils % 0.3 (0.0-0.4) % Absolute Granulocytes 1.89 (1.4-6.9) Basophils # 0.01 (0-0.4) PT (8.83-12.87) SECONDS INR (0.8-3.0) APTT (24.1-36.1) SECONDS Sodium (137-145) mmol/L Potassium (3.5-5.1) mmol/L Chloride (98-107) mmol/L Carbon Dioxide (22-30) mmol/L Anion Gap (5-15) MEQ/L BUN (9-20) mg/dL Creatinine (0.66-1.25) mg/dL Estimated GFR ML/MIN Glucose (74-106) mg/dL Calcium (8.4-10.2) mg/dL Total Bilirubin (0.2-1.3) mg/dL AST (17-59) U/L ALT (0-50) U/L Alkaline Phosphatase (38-126) U/L Creatine Kinase (55-170) U/L Troponin I (0.000-0.034) ng/mL NT-Pro-B Natriuret Pep (0-1800) pg/mL Serum Total Protein (6.3-8.2) g/dL Albumin (3.5-5.0) g/dL Urine Color YELLOW (YELLOW) Urine Appearance CLEAR (CLEAR) Urine pH 5.0 (5-6) Ur Specific [place] 1.016 (1.005-1.025) Urine Protein NEGATIVE (Negative) Urine Ketones NEGATIVE (NEGATIVE) Urine Blood MODERATE (0-5) Corey/ul Urine Nitrite NEGATIVE (NEGATIVE) Urine Bilirubin NEGATIVE (NEGATIVE) Urine Urobilinogen NEGATIVE (0-1) mg/dL Ur Leukocyte Esterase NEGATIVE (NEGATIVE) Urine WBC (Auto) 0-2 (0-5) /HPF Urine RBC (Auto) 6-10 (0-2) /HPF U Epithel Cells (Auto) RARE (FEW) /HPF Urine Bacteria (Auto) RARE (NEGATIVE) /HPF Urine Mucus (Auto) SLIGHT (NEGATIVE) /HPF Urine Culture Reflexed ORDERED SEPARATELY (NO) Urine Glucose NEGATIVE (NEGATIVE) mg/dL Urine Opiates Level POSITIVE (NEGATIVE) Ur Methadone NEGATIVE (NEGATIVE) Urine Barbiturates NEGATIVE (NEGATIVE) Ur Phencyclidine (PCP) NEGATIVE (NEGATIVE) Urine Amphetamine NEGATIVE (NEGATIVE) U Benzodiazepine Level NEGATIVE (NEGATIVE) Urine Cocaine NEGATIVE (NEGATIVE) Urine Marijuana (THC) NEGATIVE (NEGATIVE) - Progress Progress: improved Progress Note: 01/11/19 21:14 Pt significantly improved, became responsive verbally, alert and oriented, does not have recollection to the event, nausea, chest pain resolved, denies SOB or dizziness, stable and afebrile. We called DR Lindsey,covering Dr Ventura, discussed our findings and patient's current condition, he agreed to admit him for observation, with TIA, chest pain, dehydration, patient and his family informed and agreed. He was started on IV saline and PO Aspirin. Discussed with .: César Will see patient in: hospital (observation) Counseled pt/family regarding: lab results, diagnosis, rad results - Departure Departure Disposition: Observation Clinical Impression: Transient ischemic attack (TIA) Chest pain Qualifiers: Chest pain type: unspecified Qualified Code(s): R07.9 - Chest pain, unspecified Condition: Stable Critical Care Time: Yes Critical Care Time(excluding separately billable procedures): 30-74 minutes Referrals: HARDEEP VENTURA MD [Primary Care Provider] -
[2019-01-11 19:32] LABS: BASOPHIL % 0.3 % (0.0-0.4); Basophil (Absolute #) 0.01 (0-0.4); Eosinophil % 1.1 % (0.00-5.0); Eosinophil (Absolute #) 0.04 (0-0.5); Granulocyte Absolute (ANC) 1.89 (1.4-6.9); Granulocytes % 53.1 % (36.0-66.0); Hemoglobin 13.9 gm/dl (12.5-18.0); Lymphocyte (Absolute #) 1.07 (1.0-4.6); Lymphocytes % 30.1 % (24.0-44.0); Mean Cell Volume 95.7 fl (78-100); Mean Corpuscular Hemoglobin 31.7 pg (26-32); Mean Corpuscular Hgb Concent. 33.1 g/dl (32-36); Mean Platelet Volume 9.6 fl (6-9.5); Monocyte (Absolute #) 0.55 (0.0-1.3); Monocytes % 15.4 % (0.0-12.0); Platelet Count 131 K/mm3 (150-450); Red Blood Count 4.39 M/mm3 (4.1-5.6); Red Cell Distribution Width 13.1 % (11.5-14.0); White Blood Count 3.6 K/mm3 (4.0-10.5)
[2019-01-11 19:47] LABS: INR 1.01 (0.8-3.0); PROTIME 11.7 SECONDS (8.83-12.87)
[2019-01-11 19:48] LABS: Amphetamine,Urine NEGATIVE (NEGATIVE); Barbiturate,Urine NEGATIVE (NEGATIVE); Benzodiazepine,Urine NEGATIVE (NEGATIVE); Cocaine,Urine NEGATIVE (NEGATIVE); Methadone,Urine NEGATIVE (NEGATIVE); Opiate,Urine POSITIVE (NEGATIVE); PCP,Urine NEGATIVE (NEGATIVE); THC,Urine NEGATIVE (NEGATIVE)
[2019-01-11 19:49] LABS: PTT 26.9 SECONDS (24.1-36.1)
[2019-01-11] MEDS ORDERED: Zofran 4 MG/2 ML VIAL ONE (19:52)
[2019-01-11] MEDS ORDERED: Zofran 4 MG/2 ML VIAL IV ONE (19:58)
[2019-01-11 20:02] LABS: ALBUMIN 4.7 g/dL (3.5-5.0); ALKALINE PHOSPHATASE 77 U/L (38-126); ANION GAP 16.7 MEQ/L (5-15); BLOOD UREA NITROGEN 24 mg/dL (9-20); CHLORIDE 103 mmol/L (98-107); CK-Creatinine Phosphokinase 88 U/L (55-170); Calcium 9.8 mg/dL (8.4-10.2); Carbon Dioxide 24 mmol/L (22-30); Creatinine 1 1.08 mg/dL (0.66-1.25); Glucose 112 mg/dL (74-106); NT PRO BNP 537 pg/mL (0-1800); Potassium 4.1 mmol/L (3.5-5.1); SGOT/AST 31 U/L (17-59); SGPT/ALT 16 U/L (0-50); SODIUM 140 mmol/L (137-145)
[2019-01-11] MEDS ORDERED: BABY ASPIRIN 81 MG CHEW ONE (20:43)
[2019-01-11] MEDS: Sodium Chloride 0.9% 1000 ML 1,000 ML IV SCH (20:46)
[2019-01-11] MEDS ORDERED: BABY ASPIRIN 81 MG CHEW PO ONE (20:48)
[2019-01-11 20:54] LABS: Appearance CLEAR (CLEAR); Bacteria RARE /HPF (NEGATIVE); Bilirubin NEGATIVE (NEGATIVE); Blood MODERATE Ery/ul (0-5); Epithelial Cells RARE /HPF (FEW); Glucose NEGATIVE (NEGATIVE); Ketones NEGATIVE (NEGATIVE); Leukocyte Esterase NEGATIVE (NEGATIVE); Mucus SLIGHT /HPF (NEGATIVE); Nitrite NEGATIVE (NEGATIVE); Protein,Urine Dip NEGATIVE (Negative); Specific Gravity 1.016 (1.005-1.025); Urobilinogen NEGATIVE mg/dL (0-1); WBC 0-2 /HPF (0-5)
[2019-01-11] MEDS ORDERED: TYLENOL 325 MG PO PRN (21:24)
[2019-01-11] MEDS ORDERED: MILK OF MAGNESIA 30 ML PO PRN (21:24)
[2019-01-11] MEDS ORDERED: Senokot-S Tablet PO PRN (21:24)
[2019-01-11] MEDS ORDERED: Zofran 4 MG/2 ML VIAL IV PRN (21:24)
[2019-01-11] MEDS ORDERED: Nitrostat 0.4 MG Tablet SL PRN (21:24)
[2019-01-11] MEDS ORDERED: MAALOX ES 30 ML UNIT DOSE PO PRN (21:24)
[2019-01-12 06:46] LABS: Risk Ratio 2.6
[2019-01-12] MEDS: Sodium Chloride 0.9% 1000 ML 1,000 ML IV SCH (07:19)
[2019-01-12 08:01] VITALS: PULSE 65; O2SAT 97
[2019-01-12] MEDS ORDERED: Norco 10/325 MG Tablet PO PRN (08:49)
[2019-01-12] MEDS ORDERED: METHYL SALICYLATE TOP SCH (09:00)
[2019-01-12] MEDS ORDERED: MENTHOL TOP SCH (09:00)
[2019-01-12] MEDS ORDERED: Pain Relieving Rub TOP PRN (09:07)
[2019-01-12] MEDS ORDERED: ANTIVERT 25 MG PO SCH (10:00)
[2019-01-12] MEDS ORDERED: ceLEXa 20 MG PO SCH (10:00)
[2019-01-12] MEDS ORDERED: ECOTRIN 81 MG PO SCH (10:00)
[2019-01-12] MEDS ORDERED: Zestril 20 MG PO SCH (10:00)
[2019-01-12] MEDS ORDERED: ENOXAPARIN SODIUM SQ SCH (10:00)
[2019-01-12] MEDS ORDERED: Cyclobenzaprine 10 MG PO SCH (10:00)
[2019-01-12] MEDS ORDERED: PLAVIX 75 MG Tablet PO SCH (10:00)
[2019-01-12] MEDS ORDERED: Ecotrin 325 MG PO SCH (10:00)
[2019-01-12] MEDS ORDERED: Lopressor 50 MG PO SCH (10:00)
[2019-01-12 12:56] VITALS: BP 120/65
[2019-01-12] MEDS ORDERED: Ecotrin 325 MG PO ONE (20:35)
[2019-01-12] MEDS ORDERED: Aricept 10 MG PO SCH (22:00)
[2019-01-12] MEDS ORDERED: NON-FORMULARY ITEM (Simvastatin 40 Mg [Zocor 40 Mg] 40 MG) PO SCH (22:00)
[2019-01-12] MEDS ORDERED: ZOCOR 20MG PO SCH (22:00)
--- NOTE | 2019-01-15 10:33 | HP ---
CHIEF COMPLAINT: Chest pain, nausea, vomiting, diaphoresis. HISTORY OF PRESENT ILLNESS: The patient is an 78 year-old white male patient who apparently was normal usual self yesterday out running around on [place] to the river [place]. Apparently at around 1730 hours the patient began having problems with some chest discomfort. He became diaphoretic and with decreased level of consciousness and he was brought to the emergency room where he was found to be nauseated. He had vomited as well. He had to be removed from the car with help to bring him into the emergency room. PAST MEDICAL/SURGICAL HISTORY: Apparently according to him negative for any history of coronary artery disease although it does report on his chart history that he is positive for myocardial infarction and coronary artery disease. The patient currently does have history of dementia, previous stroke and transient ischemic attack, gastroesophageal reflux disease, arthritis. He has had four cardiac stents. HOME MEDICATIONS: Currently aspirin 81 mg a day, cyclobenzaprine 10 mg b.i.d., hydrocodone 10/325 mg every four hours PRN pain, lisinopril 20 mg a day, Simvastatin 40 mg a day, benazepril 10 mg a day, Citalopram 40 mg a day. ALLERGIES: NKDA. PHYSICAL EXAMINATION: The patient's vital signs on admission to the emergency room showed temperature 98.4F, pulse 85, respiratory rate 20, blood pressure 167/90. O2 saturation 97%. HEENT: Normocephalic, atraumatic. Pupils equal round reactive to light. Extraocular movements intact. Oropharynx is pink and moist. NECK: Supple without lymphadenopathy, thyromegaly or JVD. CHEST: Clear to auscultation. HEART: Irregular at times. No murmurs, rubs or gallops heard. ABDOMEN: Soft. No palpable masses. EXTREMITIES: Without cyanosis, clubbing or edema. NEUROLOGIC: The patient is alert and oriented x3 presenting but is not as confused on his previous history and no one is in the room otherwise to obtain a history otherwise from the chart history. LAB DATA AND TESTS: The patient's EKG showed bifascicular block with what appears to be possible previous old anterior myocardial infarction. His initial metabolic panel showed a glucose 112, BUN 24, creatinine 1.08. Electrolytes were normal. Liver enzymes were normal. ProBNP was 537. Urine drug screen was positive for opiates but otherwise negative. Troponin initially was less than 0.012. The patient had CT scan showing no acute ischemic infarct or hemorrhagic mass in the brain as they initially thought the patient was having transient ischemic attack or stroke. His white blood cell count was 3,600, hemoglobin 13.9, PLT count 131,000. UA was normal. ASSESSMENT: The patient has been admitted to the hospital and since that time his troponins have dramatically risen to above 2.0 although he has been pain free since his admission. The patient is currently on telemetry. We will add metoprolol to his medications and discussed with the family the seriousness of his illness but apparently the patient's dementia keeps him from being able to tell me who is scraper tender is presently. I will try to investigate this otherwise and let his scraper tender know about his new event.
--- NOTE | 2019-01-15 11:13 | XRAY ---
Indication: Dyspnea. Comparison: None Portable chest is clear. Heart is not enlarged for AP portable technique. Bony thorax intact with osteopenia and bilateral shoulder degenerative changes. Impression: Nonacute chest with chronic features.
--- NOTE | 2019-01-15 11:13 | XRAY ---
Indication: Unresponsive. Nausea and emesis. Multiple contiguous axial images obtained through the head without contrast. Comparison: None Age-appropriate global atrophy and minimal periventricular degenerative micro-ischemia bilaterally. 3-4 mm benign calcification in the left mid browne radiata. No acute intracranial hemorrhage, abnormal extra-axial fluid collection, or mass effect. Fourth ventricle is midline without hydrocephalus. Bony calvarium intact. Mild mucosal thickening of both ethmoid and lesser degree left sphenoid and left maxillary sinuses. Mastoid air cells are clear. Impression: Nonacute senile brain. Incidental paranasal sinus disease. Comment: Preliminary interpretation was made by [facility]. No discrepancy. CTDI 60.26
== END 2019-01-12 13:35 | disposition short-term general hospital (02) ==
LOC: ED 18:53 → MED SURG 21:47
PROVIDERS: ADMIT Family Medicine; ATTEND Family Medicine
DX: R07.9 Chest pain, unspecified (principal); R11.2 Nausea with vomiting, unspecified; R61 Generalized hyperhidrosis; I45.2 Bifascicular block; F03.90 Unspecified dementia, unspecified severity, without behavioral disturbance, psychotic disturbance, mood disturbance, and anxiety; I25.2 Old myocardial infarction; Z79.899 Other long term (current) drug therapy
CPT/HCPCS: 36000; 36415; 70450; 71045; 80053; 80061; 80307; 81001; 82550; 83721; 83880; 84484; 85025; 85610; 85730; 87086; 93005; 93041; 93268; 94760; 96360; 96374; 99284; 99291; G0378; J1650; J2405; A9270-GY

== ENCOUNTER 2019-09-20 10:55 | Observation (INO) | payer MEDICARE ==
--- NOTE | 2019-09-20 11:11 | ERPHSYRPT ---
- History of Present Illness Time Seen by Provider: 09/20/19 11:00 Source: patient, EMS Exam Limitations: clinical condition Physician History: 78 y/o white male on asa and plavix, and dx of dementia on aricept, cva, tias, cadz, htn, mi and cardiac stents presents with altered mental status with brief loss of vision this am. 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 he fell and hit his head on right side 4 days ago. he also states he hit his chest and left knee. vision is restored but more blurred than usual upon arrival to ED by EMS. family told EMS pt was to be evaluated at [facility] first and if transfer was necessary they would decide. pt denies soa, denies abd pain. Timing/Duration: today Severity: mild Character of Deficits: unable to speak (resolved), vision problems Deficits: falling (chronic recurrent) Baseline/Normal Cognition: alert oriented x 3 Current Cognition: alert oriented x 3 Baseline Gait: walks w/o assistance Associated Symptoms: vision changes Allergies/Adverse Reactions: No Known Drug Allergies Allergy (Verified 09/20/19 10:59) Home Medications: Aspirin EC 81 mg [Ecotrin 81 mg] 81 mg PO DAILY 07/06/17 [History] Cyclobenzaprine HCl 10 mg [Cyclobenzaprine 10 MG] 10 mg PO BID 07/06/17 [ History] Hydrocodone Bit/Acetaminophen [Hydrocodon-Acetaminophn 10-325] 0.5 tab PO QID [History] Lisinopril 20 mg [Zestril 20 MG] 20 mg PO DAILY 07/06/17 [History] Simvastatin 40 mg [Zocor 40 mg] 40 mg PO HS 07/06/17 [History] Donepezil HCl 10 mg [Aricept 10 MG] 5 mg PO HS 01/23/18 [History] Citalopram Hydrobromide [Citalopram HBr] 40 mg PO DAILY 03/06/18 [History] Meclizine HCl 12.5 mg PO TID PRN 01/11/19 [History] Methyl Salicylate/Menthol [Icy Hot Stick] 1 applic TOP QID PRN PRN 05/24/19 [ History] Carvedilol 6.25 mg [Coreg 6.25 MG] 6.25 mg PO BID 09/20/19 [History] Clopidogrel Bisulfate [Clopidogrel] 75 mg DAILY 09/20/19 [History] Metoprolol Succinate 25 mg Xl* [Toprol-Xl 25MG Tablets] 25 mg PO DAILY [History] Hx Tetanus, Diphtheria Vaccination/Date Given: Yes Hx Influenza Vaccination/Date Given: Yes Hx Pneumococcal Vaccination/Date Given: Yes - Review of Systems Constitutional: No Symptoms Eyes: No Symptoms Ears, Nose, & Throat: No Symptoms Respiratory: No Symptoms Cardiac: No Symptoms Abdominal/Gastrointestinal: No Symptoms Genitourinary Symptoms: No Symptoms Musculoskeletal: No Symptoms Skin: No Symptoms Neurological: Headache Psychological: No Symptoms Endocrine: No Symptoms Hematologic/Lymphatic: Other (bruise right temporal region) Immunological/Allergic: No Symptoms All Other Systems: Reviewed and Negative - Past Medical History Pertinent Past Medical History: Yes Neurological History: Dementia, Stroke, TIA ENT History: Cataracts Cardiac History: Coronary Artery Disease, High Cholesterol, Hypertension, Myocardial Infarction ([place]) Respiratory History: No Pertinent History Endocrine Medical History: No Pertinent History Musculoskeletal History: Arthritis GI Medical History: GERD History: No Pertinent History Psycho-Social History: No Pertinent History Male Reproductive Disorders: No Pertinent History Other Medical History: Cardiac stent x 4. - Past Surgical History Past Surgical History: Yes Neuro Surgical History: No Pertinent History Cardiac: Cardiac Catheterization, Cardiac Stent Respiratory: No Pertinent History Gastrointestinal: Hernia Repair, Other Genitourinary: No Pertinent History Musculoskeletal: No Pertinent History Male Surgical History: No Pertinent History Other Surgical History: hiatal hernia surgery - Social History Smoking Status: Never smoker Exposure to second hand smoke: No Drug Use: none Patient Lives Alone: No - Nursing Vital Signs Nursing Vital Signs: Initial Vital Signs Temperature 97.0 F 09/20/19 11:08 Pulse Rate 56 L 09/20/19 11:08 Respiratory Rate 16 09/20/19 11:08 Blood Pressure 131/71 09/20/19 11:08 O2 Sat by Pulse Oximetry 100 09/20/19 11:08 Pain Scale Pain Intensity 4 - Lowell Coma Scale Best Eye Response (Dao): (4) open spontaneously Best Verbal Response (Lowell): (5) oriented Best Motor Response (Dao): (6) obeys commands Lowell Total: 15 - Physical Exam General Appearance: no apparent distress, alert, anxiety Eye Exam: bilateral eye: normal inspection, PERRL, EOMI Ears, Nose, Throat Exam: normal ENT inspection, moist mucous membranes Neck Exam: normal inspection, non-tender, supple, full range of motion Respiratory: normal breath sounds, lungs clear, airway intact, No chest tenderness, No respiratory distress Cardiovascular: regular rate/rhythm, normal heart sounds, normal peripheral pulses Gastrointestinal: soft, normal bowel sounds, No tenderness Rectal Exam: not done Back Exam: normal inspection, normal range of motion, No CVA tenderness Extremity Exam: normal inspection, normal range of motion, pelvis stable Mental Status: alert, disoriented to place, disoriented to time, 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 Exam: normal hearing, normal speech Motor/Sensory: no motor deficit, no sensory deficit Skin Exam: normal color, warm, dry SpO2 Interpretation: normal O2 Delivery: Room Air - Course Nursing assessment & vital signs reviewed: Yes EKG Interpreted by Me: RATE (55), Left [place] Deviation, Right Bundle Branch Block , Other (compared to ekg dated 01/12/17, no changes with persistent complete rbb , left ant fasicular block and prolonged qrs) Ordered Tests: Active Orders 24 hr Category Date Time Status EKG-ER Only STAT Care 09/20/19 11:16 Active IV Insertion STAT Care 09/20/19 11:14 Active IV Insertion-2nd Peripheral STAT Care 09/20/19 11:21 Active NPO (ED) STAT Care 09/20/19 11:14 Active Pulse Oximetry (ED) STAT Care 09/20/19 11:14 Active CHEST 1 VIEW (PORTABLE) Stat Exams 09/20/19 11:15 Completed HEAD WITHOUT CONTRAST [CT] Stat Exams 09/20/19 10:57 Completed CBC W DIFF Stat Lab 09/20/19 11:14 Completed CMP Stat Lab 09/20/19 11:10 Completed NT PRO BNP Stat Lab 09/20/19 11:10 Completed PROTIME WITH INR Stat Lab 09/20/19 11:10 Completed TROPONIN Q3H Lab 09/20/19 11:10 Completed TROPONIN Q3H Lab 09/20/19 14:30 Ordered TROPONIN Q3H Lab 09/20/19 17:30 Ordered TROPONIN Q3H Lab 09/20/19 20:30 Ordered TROPONIN Q3H Lab 09/20/19 23:30 Ordered UA W/RFX UR CULTURE Stat Lab 09/20/19 12:02 Completed Transfer Order Routine Transfer 09/20/19 Ordered Medication Summary Generic Name Dose Route Start Last Admin Trade Name Mary Lou PRN Reason Stop Dose Admin Sodium Chloride 1,000 mls @ 50 mls/hr 09/20/19 11:15 09/20/19 11:25 Sodium Chloride 0.9% 1000 Ml IV 10/20/19 11:14 50 mls/hr .Q20H MEET Administration Lab/Rad Data: Laboratory Result Diagrams 09/20/19 11:14 09/20/19 11:10 Laboratory Results 09/20/19 09/20/19 09/20/19 Range/Units 12:02 11:14 11:10 WBC 2.6 L (4.0-10.5) K/mm3 RBC 3.75 L (4.1-5.6) M/mm3 Hgb 11.9 L (12.5-18.0) gm/dl Hct 35.9 L (42-50) % MCV 95.7 (78-100) fl MCH 31.7 (26-32) pg MCHC 33.1 (32-36) g/dl RDW 13.4 (11.5-14.0) % Plt Count 111 L (150-450) K/mm3 MPV 8.7 (7.5-11.0) fl Gran % 48.0 (36.0-66.0) % Eos # (Auto) 0.09 (0-0.5) Absolute Lymphs (auto) 0.85 L (1.0-4.6) Absolute Monos (auto) 0.36 (0.0-1.3) Lymphocytes % 33.2 (24.0-44.0) % Monocytes % 14.1 H (0.0-12.0) % Eosinophils % 3.5 (0.00-5.0) % Basophils % 1.2 (0.0-0.4) % Absolute Granulocytes 1.23 L (1.4-6.9) Basophils # 0.03 (0-0.4) PT (8.83-12.87) SECONDS INR (0.8-3.0) Sodium (137-145) mmol/L Potassium (3.5-5.1) mmol/L Chloride (98-107) mmol/L Carbon Dioxide (22-30) mmol/L Anion Gap (5-15) MEQ/L BUN (9-20) mg/dL Creatinine (0.66-1.25) mg/dL Estimated GFR ML/MIN Glucose (74-106) mg/dL Calcium (8.4-10.2) mg/dL Total Bilirubin (0.2-1.3) mg/dL AST (17-59) U/L ALT (0-50) U/L Alkaline Phosphatase (38-126) U/L Troponin I < 0.012 (0.000-0.034) ng/mL NT-Pro-B Natriuret Pep (0-1800) pg/mL Serum Total Protein (6.3-8.2) g/dL Albumin (3.5-5.0) g/dL Urine Color YELLOW (YELLOW) Urine Appearance CLEAR (CLEAR) Urine pH 6.0 (5-6) Ur Specific Thelma 1.019 (1.005-1.025) Urine Protein NEGATIVE (Negative) Urine Ketones TRACE (NEGATIVE) Urine Blood SMALL (0-5) Corey/ul Urine Nitrite NEGATIVE (NEGATIVE) Urine Bilirubin NEGATIVE (NEGATIVE) Urine Urobilinogen 2 (0-1) mg/dL Ur Leukocyte Esterase NEGATIVE (NEGATIVE) Urine WBC (Auto) NONE (0-5) /HPF Urine RBC (Auto) 6-10 (0-2) /HPF U Hyaline Cast (Auto) 3-5 (0-2) /LPF U Epithel Cells (Auto) NONE (FEW) /HPF Urine Bacteria (Auto) RARE (NEGATIVE) /HPF Urine Mucus (Auto) SLIGHT (NEGATIVE) /HPF Urine Culture Reflexed NO (NO) Urine Glucose NEGATIVE (NEGATIVE) mg/dL 09/20/19 09/20/19 09/20/19 Range/Units 11:10 11:10 11:10 WBC (4.0-10.5) K/mm3 RBC (4.1-5.6) M/mm3 Hgb (12.5-18.0) gm/dl Hct (42-50) % MCV (78-100) fl MCH (26-32) pg MCHC (32-36) g/dl RDW (11.5-14.0) % Plt Count (150-450) K/mm3 MPV (7.5-11.0) fl Gran % (36.0-66.0) % Eos # (Auto) (0-0.5) Absolute Lymphs (auto) (1.0-4.6) Absolute Monos (auto) (0.0-1.3) Lymphocytes % (24.0-44.0) % Monocytes % (0.0-12.0) % Eosinophils % (0.00-5.0) % Basophils % (0.0-0.4) % Absolute Granulocytes (1.4-6.9) Basophils # (0-0.4) PT 12.6 (8.83-12.87) SECONDS INR 1.11 (0.8-3.0) Sodium 134 L (137-145) mmol/L Potassium 4.5 (3.5-5.1) mmol/L Chloride 99 (98-107) mmol/L Carbon Dioxide 28 (22-30) mmol/L Anion Gap 12.2 (5-15) MEQ/L BUN 21 H (9-20) mg/dL Creatinine 1.07 (0.66-1.25) mg/dL Estimated GFR > 60.0 ML/MIN Glucose 110 H (74-106) mg/dL Calcium 8.9 (8.4-10.2) mg/dL Total Bilirubin 1.20 (0.2-1.3) mg/dL AST 32 (17-59) U/L ALT 20 (0-50) U/L Alkaline Phosphatase 60 (38-126) U/L Troponin I (0.000-0.034) ng/mL NT-Pro-B Natriuret Pep 213 (0-1800) pg/mL Serum Total Protein 6.9 (6.3-8.2) g/dL Albumin 4.1 (3.5-5.0) g/dL Urine Color (YELLOW) Urine Appearance (CLEAR) Urine pH (5-6) Ur Specific Thelma (1.005-1.025) Urine Protein (Negative) Urine Ketones (NEGATIVE) Urine Blood (0-5) Corey/ul Urine Nitrite (NEGATIVE) Urine Bilirubin (NEGATIVE) Urine Urobilinogen (0-1) mg/dL Ur Leukocyte Esterase (NEGATIVE) Urine WBC (Auto) (0-5) /HPF Urine RBC (Auto) (0-2) /HPF U Hyaline Cast (Auto) (0-2) /LPF U Epithel Cells (Auto) (FEW) /HPF Urine Bacteria (Auto) (NEGATIVE) /HPF Urine Mucus (Auto) (NEGATIVE) /HPF Urine Culture Reflexed (NO) Urine Glucose (NEGATIVE) mg/dL - Progress Progress: improved, re-examined Progress Note: 09/20/19 12:[address] galarza. i reviewed pts hx, condition, lab, ekg, cxr and ct head results. he accepts pt for observation. iv hydration, r/o mi monitor bradycardia. Discussed with : Jessy Counseled pt/family regarding: lab results, diagnosis, need for follow-up, rad results - Departure Departure Disposition: Observation Clinical Impression: Mild dehydration, Bradycardia, Chest pain, Fall Condition: Stable Critical Care Time: Yes Critical Care Time(excluding separately billable procedures): Critical 30-74 mins Referrals: HARDEEP GALARZA MD [Primary Care Provider] -
--- NOTE | 2019-09-20 11:13 | XRAY ---
A chin: Altered mental status. Found unresponsive. Multiple contiguous axial images obtained through the head without contrast. Comparison: January 11, 2019. Stable age-appropriate global atrophy, minimal periventricular degenerative micro-ischemia bilaterally, and benign appearing left mid browne radiata microcalcification. No acute intracranial hemorrhage, abnormal extra-axial fluid collection, or mass effect. Fourth ventricle is midline without hydrocephalus. Bony calvarium intact. There is again minimal mucosal thickening of both ethmoid sinuses. Remaining visualized paranasal sinuses and mastoid air cells. Impression: Stable nonacute senile brain again with minimal paranasal sinus disease.
[2019-09-20] MEDS ORDERED: Sodium Chloride 0.9% 1000 ML 1,000 ML IV SCH ×2 (11:15→13:44)
[2019-09-20] MEDS ORDERED: Sodium Chloride 0.9% 1000 ML 1,000 ML ONE (11:22)
[2019-09-20 11:24] LABS: Absolute Neutrophil Ct (ANC) 1.23 (1.4-6.9); BASOPHIL % 1.2 % (0.0-0.4); Basophil (Absolute #) 0.03 (0-0.4); Eosinophil % 3.5 % (0.00-5.0); Eosinophil (Absolute #) 0.09 (0-0.5); Hematocrit 35.9 % (42-50); Hemoglobin 11.9 gm/dl (12.5-18.0); Lymphocyte (Absolute #) 0.85 (1.0-4.6); Lymphocytes % 33.2 % (24.0-44.0); Mean Cell Volume 95.7 fl (78-100); Mean Corpuscular Hemoglobin 31.7 pg (26-32); Mean Corpuscular Hgb Concent. 33.1 g/dl (32-36); Mean Platelet Volume 8.7 fl (7.5-11.0); Monocyte (Absolute #) 0.36 (0.0-1.3); Monocytes % 14.1 % (0.0-12.0); Platelet Count 111 K/mm3 (150-450); Red Blood Count 3.75 M/mm3 (4.1-5.6); Red Cell Distribution Width 13.4 % (11.5-14.0); White Blood Count 2.6 K/mm3 (4.0-10.5)
[2019-09-20 11:26] LABS: INR 1.11 (0.8-3.0); PROTIME 12.6 SECONDS (8.83-12.87)
[2019-09-20 11:32] LABS: ALBUMIN 4.1 g/dL (3.5-5.0); ALKALINE PHOSPHATASE 60 U/L (38-126); ANION GAP 12.2 MEQ/L (5-15); BLOOD UREA NITROGEN 21 mg/dL (9-20); CHLORIDE 99 mmol/L (98-107); Calcium 8.9 mg/dL (8.4-10.2); Carbon Dioxide 28 mmol/L (22-30); Creatinine 1 1.07 mg/dL (0.66-1.25); Glucose 110 mg/dL (74-106); Potassium 4.5 mmol/L (3.5-5.1); SGOT/AST 32 U/L (17-59); SGPT/ALT 20 U/L (0-50); SODIUM 134 mmol/L (137-145); Total Protein 6.9 g/dL (6.3-8.2)
--- NOTE | 2019-09-20 11:38 | XRAY ---
Indication: Unresponsive. Comparison: January 11, 2019. Portable chest underinflated accentuating the cardiopulmonary structures. Query new right base infiltrate versus atelectasis. Remaining heart and lungs unremarkable. Bony thorax intact again with osteopenia and degenerative changes.
[2019-09-20 12:10] LABS: Appearance CLEAR (CLEAR); Bacteria RARE /HPF (NEGATIVE); Bilirubin NEGATIVE (NEGATIVE); Blood SMALL Ery/ul (0-5); Glucose NEGATIVE (NEGATIVE); Ketones TRACE (NEGATIVE); Leukocyte Esterase NEGATIVE (NEGATIVE); Mucus SLIGHT /HPF (NEGATIVE); Nitrite NEGATIVE (NEGATIVE); Protein,Urine Dip NEGATIVE (Negative); Specific Gravity 1.019 (1.005-1.025); Urobilinogen 2 mg/dL (0-1)
[2019-09-20] MEDS ORDERED: TYLENOL 325 MG PO PRN (13:44)
[2019-09-20] MEDS ORDERED: Zofran 4 MG/2 ML VIAL IV PRN (13:44)
--- NOTE | 2019-09-20 14:22 | PCM.HP ---
History of Present Illness - Chief Complaint Chief Complaint: bradycardia History of Present Illness: is a 78 year old male who had the sudden onset of weakness, confusion , chest pain and left side weakness. He was in his usual state of health this morning, 4 hours ago while sitting and watching tv he broke out in a sweat and developed heaviness in his chest, he became very confused and short of breath, he also states he felt weak on his left side. He believes he was having a TIA, his symptoms have since resolved. He has a history of CAD and sees Dr Jackson, also reports hx of TIA previously. - Review of Systems Constitutional: Weakness, No Fever, No Chills Respiratory: Short Of Breath Cardiac: Chest Pain Abdominal/Gastrointestinal: No Abdominal Pain, No Nausea, No Vomiting, No Diarrhea Genitourinary Symptoms: No Dysuria Neurological: Focal Weakness, Headache, Speech Changes All Other Systems: Reviewed and Negative Medications & Allergies Home Medications: Home Medication List Aspirin EC 81 mg [Ecotrin 81 mg] 81 mg PO DAILY 07/06/17 [History Confirmed 09/20/19] Hydrocodone Bit/Acetaminophen [Hydrocodon-Acetaminophn 10-325] 1 tab PO QID PRN 07/06/17 [History Confirmed 09/20/19] Lisinopril 20 mg [Zestril 20 MG] 20 mg PO DAILY 07/06/17 [History Confirmed 09/20/19] Simvastatin 40 mg [Zocor 40 mg] 40 mg PO HS 07/06/17 [History Confirmed 09/20/19 ] Donepezil HCl 10 mg [Aricept 10 MG] 5 mg PO HS 01/23/18 [History Confirmed 09/20/19] Citalopram Hydrobromide [Citalopram HBr] 40 mg PO DAILY 03/06/18 [History Confirmed 09/20/19] Clopidogrel Bisulfate [Clopidogrel] 75 mg DAILY 09/20/19 [History Confirmed ] Tizanidine HCl 4 mg [Zanaflex 4 MG] 4 mg PO BID PRN 09/20/19 [History Confirmed 09/20/19] Allergies/Adverse Reactions: Allergies Allergy/AdvReac Type Severity Reaction Status Date / Time No Known Drug Allergies Allergy Verified 09/20/19 10:59 - Past Medical History Past Medical History: Yes Neurological History: Dementia, Stroke, TIA ENT History: Cataracts Cardiac History: Coronary Artery Disease, High Cholesterol, Hypertension, Myocardial Infarction ([place]) Respiratory History: No Pertinent History Endocrine Medical History: No Pertinent History Musculoskelatal History: Arthritis GI Medical History: GERD History: No Pertinent History Pyscho-Social History: No Pertinent History Male Reproductive Disorders: No Pertinent History Comment: Cardiac stent x 4. - Past Surgical History Past Surgical History: Yes Neuro Surgical History: No Pertinent History Cardiac History: Cardiac Catheterization, Cardiac Stent Respiratory Surgery: No Pertinent History GI Surgical History: Hernia Repair, Other Genitourinary Surgical Hx: No Pertinent History Musculskeletal Surgical Hx: No Pertinent History Male Surgical History: No Pertinent History Other Surgical History: hiatal hernia surgery - Social History Smoking Status: Never smoker Exposure to second hand smoke: No Alcohol: None Drug Use: none - Physical Exam Vital Signs: Vital Signs - 24 hr Temp Pulse Resp BP Pulse Ox 09/20/19 13:44 100 09/20/19 13:00 50 L 16 119/70 100 09/20/19 11:59 66 15 126/70 100 09/20/19 11:43 99 H 16 126/70 100 09/20/19 11:19 100 09/20/19 11:08 97.0 F 56 L 16 131/71 100 General Appearance: no apparent distress Neurologic Exam: alert, oriented x 3, cooperative, 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 tested, normal mood/affect, No motor deficits, No sensory deficit, No disoriented, No confusion, No slurred speech Eye Exam: PERRL/EOMI, eyes nml inspection Respiratory Exam: normal breath sounds, lungs clear, No respiratory distress Cardiovascular Exam: regular rate/rhythm, normal heart sounds, normal peripheral pulses Gastrointestinal/Abdomen Exam: soft, normal bowel sounds, No tenderness, No mass Extremity Exam: normal inspection, normal range of motion, pelvis stable Skin Exam: normal color, warm, dry, No rash Results - Labs Lab/Micro Results: Lab Results-Last 24 Hours 09/20/19 09/20/19 09/20/19 Range/Units 11:10 11:10 11:10 WBC (4.0-10.5) K/mm3 RBC (4.1-5.6) M/mm3 Hgb (12.5-18.0) gm/dl Hct (42-50) % MCV (78-100) fl MCH (26-32) pg MCHC (32-36) g/dl RDW (11.5-14.0) % Plt Count (150-450) K/mm3 MPV (7.5-11.0) fl Gran % (36.0-66.0) % Eos # (Auto) (0-0.5) Absolute Lymphs (auto) (1.0-4.6) Absolute Monos (auto) (0.0-1.3) Lymphocytes % (24.0-44.0) % Monocytes % (0.0-12.0) % Eosinophils % (0.00-5.0) % Basophils % (0.0-0.4) % Absolute Granulocytes (1.4-6.9) Basophils # (0-0.4) PT 12.6 (8.83-12.87) SECONDS INR 1.11 (0.8-3.0) Sodium 134 L (137-145) mmol/L Potassium 4.5 (3.5-5.1) mmol/L Chloride 99 (98-107) mmol/L Carbon Dioxide 28 (22-30) mmol/L Anion Gap 12.2 (5-15) MEQ/L BUN 21 H (9-20) mg/dL Creatinine 1.07 (0.66-1.25) mg/dL Estimated GFR > 60.0 ML/MIN Glucose 110 H (74-106) mg/dL Calcium 8.9 (8.4-10.2) mg/dL Total Bilirubin 1.20 (0.2-1.3) mg/dL AST 32 (17-59) U/L ALT 20 (0-50) U/L Alkaline Phosphatase 60 (38-126) U/L Troponin I (0.000-0.034) ng/mL NT-Pro-B Natriuret Pep 213 (0-1800) pg/mL Serum Total Protein 6.9 (6.3-8.2) g/dL Albumin 4.1 (3.5-5.0) g/dL Urine Color (YELLOW) Urine Appearance (CLEAR) Urine pH (5-6) Ur Specific [place] (1.005-1.025) Urine Protein (Negative) Urine Ketones (NEGATIVE) Urine Blood (0-5) Corey/ul Urine Nitrite (NEGATIVE) Urine Bilirubin (NEGATIVE) Urine Urobilinogen (0-1) mg/dL Ur Leukocyte Esterase (NEGATIVE) Urine WBC (Auto) (0-5) /HPF Urine RBC (Auto) (0-2) /HPF U Hyaline Cast (Auto) (0-2) /LPF U Epithel Cells (Auto) (FEW) /HPF Urine Bacteria (Auto) (NEGATIVE) /HPF Urine Mucus (Auto) (NEGATIVE) /HPF Urine Culture Reflexed (NO) Urine Glucose (NEGATIVE) mg/dL 09/20/19 09/20/19 09/20/19 Range/Units 11:10 11:14 12:02 WBC 2.6 L (4.0-10.5) K/mm3 RBC 3.75 L (4.1-5.6) M/mm3 Hgb 11.9 L (12.5-18.0) gm/dl Hct 35.9 L (42-50) % MCV 95.7 (78-100) fl MCH 31.7 (26-32) pg MCHC 33.1 (32-36) g/dl RDW 13.4 (11.5-14.0) % Plt Count 111 L (150-450) K/mm3 MPV 8.7 (7.5-11.0) fl Gran % 48.0 (36.0-66.0) % Eos # (Auto) 0.09 (0-0.5) Absolute Lymphs (auto) 0.85 L (1.0-4.6) Absolute Monos (auto) 0.36 (0.0-1.3) Lymphocytes % 33.2 (24.0-44.0) % Monocytes % 14.1 H (0.0-12.0) % Eosinophils % 3.5 (0.00-5.0) % Basophils % 1.2 (0.0-0.4) % Absolute Granulocytes 1.23 L (1.4-6.9) Basophils # 0.03 (0-0.4) PT (8.83-12.87) SECONDS INR (0.8-3.0) Sodium (137-145) mmol/L Potassium (3.5-5.1) mmol/L Chloride (98-107) mmol/L Carbon Dioxide (22-30) mmol/L Anion Gap (5-15) MEQ/L BUN (9-20) mg/dL Creatinine (0.66-1.25) mg/dL Estimated GFR ML/MIN Glucose (74-106) mg/dL Calcium (8.4-10.2) mg/dL Total Bilirubin (0.2-1.3) mg/dL AST (17-59) U/L ALT (0-50) U/L Alkaline Phosphatase (38-126) U/L Troponin I < 0.012 (0.000-0.034) ng/mL NT-Pro-B Natriuret Pep (0-1800) pg/mL Serum Total Protein (6.3-8.2) g/dL Albumin (3.5-5.0) g/dL Urine Color YELLOW (YELLOW) Urine Appearance CLEAR (CLEAR) Urine pH 6.0 (5-6) Ur Specific [place] 1.019 (1.005-1.025) Urine Protein NEGATIVE (Negative) Urine Ketones TRACE (NEGATIVE) Urine Blood SMALL (0-5) Corey/ul Urine Nitrite NEGATIVE (NEGATIVE) Urine Bilirubin NEGATIVE (NEGATIVE) Urine Urobilinogen 2 (0-1) mg/dL Ur Leukocyte Esterase NEGATIVE (NEGATIVE) Urine WBC (Auto) NONE (0-5) /HPF Urine RBC (Auto) 6-10 (0-2) /HPF U Hyaline Cast (Auto) 3-5 (0-2) /LPF U Epithel Cells (Auto) NONE (FEW) /HPF Urine Bacteria (Auto) RARE (NEGATIVE) /HPF Urine Mucus (Auto) SLIGHT (NEGATIVE) /HPF Urine Culture Reflexed NO (NO) Urine Glucose NEGATIVE (NEGATIVE) mg/dL - Radiology Impressions Radiology Exams & Impressions: Radiology Procedures Category Date Time Status CHEST 1 VIEW (PORTABLE) Stat Exams 09/20/19 11:15 Completed HEAD WITHOUT CONTRAST [CT] Stat Exams 09/20/19 10:57 Completed MRI BRAIN W/O CONTRAST [MRI] Urgent Exams 09/20/19 14:15 Ordered - Other Procedures and Tests Respiratory Therapy 09/20/19 13:44 EKG REPEAT IN AM Assessment/Plan (1) Acute left hemiparesis Current Visit: Yes Status: Acute Assessment & Plan: will get MRI< continue telemetry. he is on aspirin and plavix and normotensive at this time, in my opinion more likely his episode was cardiac in nature based on the history and presentation Code(s): G81.94 - HEMIPLEGIA, UNSPECIFIED AFFECTING LEFT NONDOMINANT SIDE (2) Bradycardia Current Visit: Yes Status: Acute Assessment & Plan: he is on no meds that would likely contribute, has a sinus justin which is unchanged from comparison. will monitor on telemetry, R/O MO and continue current meds. if problems will consult with Dr Jackson Code(s): R00.1 - BRADYCARDIA, UNSPECIFIED (3) Chest pain Current Visit: Yes Status: Acute Assessment & Plan: complete MO rule out. he is on statin, aspirin, plavix and maite. beta yolanda contraindicated due to mild bradycardia Code(s): R07.9 - CHEST PAIN, UNSPECIFIED
[2019-09-20] MEDS ORDERED: Zanaflex 4 MG PO PRN (14:31)
[2019-09-20] MEDS ORDERED: Norco 10/325 MG Tablet PO PRN (14:31)
[2019-09-20] MEDS: Zestril 20 MG PO SCH (14:47)
[2019-09-20] MEDS: ECOTRIN 81 MG PO SCH (14:47)
[2019-09-20] MEDS: ceLEXa 20 MG PO SCH (14:47)
--- NOTE | 2019-09-20 15:47 | XRAY ---
Indication: Unresponsive. Sagittal, coronal, and axial MRI brain was performed without contrast using T1, T2, diffusion, FLAIR, and ADC sequences. Comparison: None Age-appropriate global atrophy and mild periventricular degenerative micro-ischemia bilaterally. CT proven left mid browne radiata benign calcification. No acute intracranial hemorrhage, abnormal extra-axial fluid collection, or mass effect. Diffusion images are negative for restricted signal. Fourth ventricle is midline without hydrocephalus. 7/8 cranial nerve complex bilaterally symmetric. Normal flow void signal within the major intracerebral circulation. Normal appearing craniocervical junction and sella turcica. Minimal mucosal thickening of both ethmoid and frontal sinuses. Impression: 1. Atrophy and degenerative micro-ischemia within normal limits for patient's age. 2. CT proven left browne radiata benign calcification. 3. No acute intracranial abnormalities or evidence for evolving large vessel territorial stroke. 4. Minimal paranasal sinus disease.
[2019-09-20] MEDS ORDERED: ZOCOR 20MG PO SCH (22:00)
[2019-09-20] MEDS ORDERED: NON-FORMULARY ITEM (Simvastatin 40 Mg [Zocor 40 Mg] 40 MG) PO SCH (22:00)
[2019-09-20] MEDS ORDERED: Aricept 10 MG PO SCH (22:00)
[2019-09-20] MEDS: Sodium Chloride 0.9% 10 ML FLUSH Syringe IV SCH (23:16)
[2019-09-21 05:25] LABS: BASOPHIL % 0.9 % (0.0-0.4); Basophil (Absolute #) 0.04 (0-0.4); Eosinophil % 2.7 % (0.00-5.0); Eosinophil (Absolute #) 0.12 (0-0.5); Hematocrit 36.3 % (42-50); Hemoglobin 12.1 gm/dl (12.5-18.0); Lymphocyte (Absolute #) 1.41 (1.0-4.6); Lymphocytes % 32.3 % (24.0-44.0); Mean Cell Volume 95.8 fl (78-100); Mean Corpuscular Hemoglobin 31.9 pg (26-32); Mean Corpuscular Hgb Concent. 33.3 g/dl (32-36); Monocytes % 13.7 % (0.0-12.0); Neutrophil % 50.4 % (36.0-66.0); Platelet Count 123 K/mm3 (150-450); Red Blood Count 3.79 M/mm3 (4.1-5.6); Red Cell Distribution Width 13.6 % (11.5-14.0); White Blood Count 4.4 K/mm3 (4.0-10.5)
[2019-09-21 05:28] LABS: ALBUMIN 3.9 g/dL (3.5-5.0); ALKALINE PHOSPHATASE 66 U/L (38-126); ANION GAP 13.5 MEQ/L (5-15); BLOOD UREA NITROGEN 18 mg/dL (9-20); CHLORIDE 105 mmol/L (98-107); Calcium 9.1 mg/dL (8.4-10.2); Carbon Dioxide 24 mmol/L (22-30); Glucose 94 mg/dL (74-106); Potassium 4.1 mmol/L (3.5-5.1); SGOT/AST 29 U/L (17-59); SGPT/ALT 19 U/L (0-50); SODIUM 138 mmol/L (137-145); Total Protein 6.7 g/dL (6.3-8.2)
[2019-09-21] MEDS: Sodium Chloride 0.9% 10 ML FLUSH Syringe IV SCH (06:49)
[2019-09-21] MEDS: ceLEXa 20 MG PO SCH (09:53)
[2019-09-21] MEDS: Zestril 20 MG PO SCH (09:53)
[2019-09-21] MEDS: ECOTRIN 81 MG PO SCH (09:53)
[2019-09-21] MEDS ORDERED: PLAVIX 75 MG Tablet PO SCH (10:00)
[2019-09-21 12:31] VITALS: BP 153/71; PULSE 57; O2SAT 97
--- NOTE | 2019-09-21 12:34 | PCM.DS ---
Discharge Summary Date of Admission: 09/20/19 13:35 Admitting Physician: HARDEEP VENTURA Primary Care Provider: HARDEEP VENTURA Allergies Allergies No Known Drug Allergies Allergy (Verified 09/20/19 10:59) Hospital Summary - Hospital Course Hospital Course: Pt is 78 yo male pt of Dr. Ventura with hx CAD, esophageal dysmotility, HTN, GERD , hiatal hernia, OA, and chronic pain who was brought to ER with sudden onset of chest heaviness, SOB, confusion, and L sided weakness yesterday (4h [employer]). Sx were better in ER, but he was still bradycardic and not on any beta blockers. He was admitted for observation. MRI brain with nothing acute. Initially WBC were 2.6 but now 4.4. His troponins have been neg x 5. His EKG with sinus bradycardia initially; at 0530 today HR was 58. Currently HR in the 80s and he is feeling good. Staff expressed some concern about irregular HR auscultated in the room with monitor showing nl HR; will check another EKG and if it's normal will d/c pt to home. He is asking to go home and exam is benign this morning. - Vitals & Intake/Output Vital Signs: Vital Signs Temperature 97.8 F 09/21/19 07:18 Pulse Rate 55 L 09/21/19 07:18 Respiratory Rate 17 09/21/19 07:18 Blood Pressure 119/64 09/21/19 07:18 O2 Sat by Pulse Oximetry 96 09/21/19 07:18 Intake & Output: Intake & Output 09/19/19 09/20/19 09/21/19 09/22/19 11:59 11:59 11:59 11:59 Intake Total 3273 Output Total 1975 Balance 1298 Weight 91 kg 87.8 kg - Lab Result Diagrams: 09/21/19 05:12 09/21/19 05:12 Lab Results-Last 24 Hrs: Lab Results-Last 24 Hours 09/20/19 09/20/19 09/20/19 Range/Units 14:30 18:18 21:04 WBC (4.0-10.5) K/mm3 RBC (4.1-5.6) M/mm3 Hgb (12.5-18.0) gm/dl Hct (42-50) % MCV (78-100) fl MCH (26-32) pg MCHC (32-36) g/dl RDW (11.5-14.0) % Plt Count (150-450) K/mm3 MPV (7.5-11.0) fl Gran % (36.0-66.0) % Eos # (Auto) (0-0.5) Absolute Lymphs (auto) (1.0-4.6) Absolute Monos (auto) (0.0-1.3) Lymphocytes % (24.0-44.0) % Monocytes % (0.0-12.0) % Eosinophils % (0.00-5.0) % Basophils % (0.0-0.4) % Absolute Granulocytes (1.4-6.9) Basophils # (0-0.4) Sodium (137-145) mmol/L Potassium (3.5-5.1) mmol/L Chloride (98-107) mmol/L Carbon Dioxide (22-30) mmol/L Anion Gap (5-15) MEQ/L BUN (9-20) mg/dL Creatinine (0.66-1.25) mg/dL Estimated GFR ML/MIN Glucose (74-106) mg/dL Calcium (8.4-10.2) mg/dL Total Bilirubin (0.2-1.3) mg/dL AST (17-59) U/L ALT (0-50) U/L Alkaline Phosphatase (38-126) U/L Troponin I < 0.012 < 0.012 < 0.012 (0.000-0.034) ng/mL Serum Total Protein (6.3-8.2) g/dL Albumin (3.5-5.0) g/dL 09/20/19 09/21/19 09/21/19 Range/Units 23:27 05:12 05:12 WBC 4.4 (4.0-10.5) K/mm3 RBC 3.79 L (4.1-5.6) M/mm3 Hgb 12.1 L (12.5-18.0) gm/dl Hct 36.3 L (42-50) % MCV 95.8 (78-100) fl MCH 31.9 (26-32) pg MCHC 33.3 (32-36) g/dl RDW 13.6 (11.5-14.0) % Plt Count 123 L (150-450) K/mm3 MPV 9.0 (7.5-11.0) fl Gran % 50.4 (36.0-66.0) % Eos # (Auto) 0.12 (0-0.5) Absolute Lymphs (auto) 1.41 (1.0-4.6) Absolute Monos (auto) 0.60 (0.0-1.3) Lymphocytes % 32.3 (24.0-44.0) % Monocytes % 13.7 H (0.0-12.0) % Eosinophils % 2.7 (0.00-5.0) % Basophils % 0.9 (0.0-0.4) % Absolute Granulocytes 2.20 (1.4-6.9) Basophils # 0.04 (0-0.4) Sodium 138 (137-145) mmol/L Potassium 4.1 (3.5-5.1) mmol/L Chloride 105 (98-107) mmol/L Carbon Dioxide 24 (22-30) mmol/L Anion Gap 13.5 (5-15) MEQ/L BUN 18 (9-20) mg/dL Creatinine 1.00 (0.66-1.25) mg/dL Estimated GFR > 60.0 ML/MIN Glucose 94 (74-106) mg/dL Calcium 9.1 (8.4-10.2) mg/dL Total Bilirubin 0.80 (0.2-1.3) mg/dL AST 29 (17-59) U/L ALT 19 (0-50) U/L Alkaline Phosphatase 66 (38-126) U/L Troponin I < 0.012 (0.000-0.034) ng/mL Serum Total Protein 6.7 (6.3-8.2) g/dL Albumin 3.9 (3.5-5.0) g/dL - Radiology Exams Ordered Rad Exams-Entire Visit: Radiology Procedures Category Date Time Status CHEST 1 VIEW (PORTABLE) Stat Exams 09/20/19 11:15 Completed HEAD WITHOUT CONTRAST [CT] Stat Exams 09/20/19 10:57 Completed MRI BRAIN W/O CONTRAST [MRI] Urgent Exams 09/20/19 14:15 Completed - Procedures and Test Procedures and Tests throughout Hospitalization: Therapy Orders & Screens 09/20/19 13:44 EKG REPEAT IN AM Comment: 02/01/20 12:26 EKG ROUTINE Comment: Diagnosis: bradycardia Discharge Exam General Appearance: no apparent distress, alert Neurologic Exam: oriented x 3, cooperative, other (UE and LE strength 4/5 throughout. systems administrator 4/5 bilat.) Eye Exam: eyes nml inspection Ears, Nose, Throat Exam: moist mucous membranes Neck Exam: normal inspection Respiratory Exam: diminished breath sounds, No crackles/rales, No rhonchi, No wheezing Cardiovascular Exam: regular rate/rhythm, normal heart sounds, No murmur Gastrointestinal/Abdomen Exam: soft, normal bowel sounds, No tenderness, No distention, No mass, No guarding, No rebound Back Exam: normal inspection, No rash Extremity Exam: No pedal edema, No swelling Skin Exam: normal color, warm, dry, No rash Final Diagnosis/Problem List - Final Discharge Diagnosis/Problem (1) Acute left hemiparesis Current Visit: Yes Status: Resolved Code(s): G81.94 - HEMIPLEGIA, UNSPECIFIED AFFECTING LEFT NONDOMINANT SIDE (2) Bradycardia Current Visit: Yes Status: Resolved Assessment & Plan: will check one more EKG Code(s): R00.1 - BRADYCARDIA, UNSPECIFIED (3) Chest pain Current Visit: Yes Status: Resolved Assessment & Plan: RI ruled out. f/u with Dr. Ventura in 1 wk. Code(s): R07.9 - CHEST PAIN, UNSPECIFIED - Discharge Disposition: Home, Self-Care Condition: Stable Prescriptions: Continue Hydrocodone Bit/Acetaminophen [Hydrocodon-Acetaminophn 10-325] 1 tab PO QID PRN PRN Reason: Pain Simvastatin 40 mg [Zocor 40 mg] 40 mg PO HS Lisinopril 20 mg [Zestril 20 MG] 20 mg PO DAILY Aspirin EC 81 mg [Ecotrin 81 mg] 81 mg PO DAILY Donepezil HCl 10 mg [Aricept 10 MG] 5 mg PO HS Citalopram Hydrobromide [Citalopram HBr] 40 mg PO DAILY Clopidogrel Bisulfate [Clopidogrel] 75 mg DAILY Tizanidine HCl 4 mg [Zanaflex 4 MG] 4 mg PO BID PRN PRN Reason: Pain Follow up with: HARDEEP VENTURA MD [Primary Care Provider] - 1 Week
== END 2019-09-21 14:50 | disposition home or self-care (01) ==
LOC: ED 10:55 → MED SURG 13:35
PROVIDERS: ADMIT Family Medicine; ATTEND Family Medicine
DX: G81.94 Hemiplegia, unspecified affecting left nondominant side (principal); R00.1 Bradycardia, unspecified; R07.9 Chest pain, unspecified; R53.1 Weakness; R41.0 Disorientation, unspecified; R51 Headache; I10 Essential (primary) hypertension; E78.00 Pure hypercholesterolemia, unspecified; G89.29 Other chronic pain; Z86.79 Personal history of other diseases of the circulatory system; I25.2 Old myocardial infarction; Z79.899 Other long term (current) drug therapy; Z86.73 Personal history of transient ischemic attack (TIA), and cerebral infarction without residual deficits
CPT/HCPCS: 36415; 70450; 70551; 80053; 81001; 83880; 84484; 85025; 85610; 93005; 93268; 94762; 96360; 96361; 99291; G0378; 36000; 71045; 94760; 99285; A9270-GY

== ENCOUNTER 2020-02-23 19:25 | Emergency (ER) | payer MEDICARE ==
[2020-02-23 20:07] LABS: Absolute Neutrophil Ct (ANC) 1.98 (1.4-6.9); BASOPHIL % 0.5 % (0.0-0.4); Basophil (Absolute #) 0.02 (0-0.4); Eosinophil % 3.3 % (0.00-5.0); Eosinophil (Absolute #) 0.14 (0-0.5); Hematocrit 39.9 % (42-50); Hemoglobin 13.3 gm/dl (12.5-18.0); Lymphocyte (Absolute #) 1.72 (1.0-4.6); Lymphocytes % 40.1 % (24.0-44.0); Mean Corpuscular Hemoglobin 31.7 pg (26-32); Mean Corpuscular Hgb Concent. 33.3 g/dl (32-36); Mean Platelet Volume 9.8 fl (7.5-11.0); Monocyte (Absolute #) 0.43 (0.0-1.3); Neutrophil % 46.1 % (36.0-66.0); Platelet Count 142 K/mm3 (150-450); Red Cell Distribution Width 13.7 % (11.5-14.0); White Blood Count 4.3 K/mm3 (4.0-10.5)
[2020-02-23 20:20] LABS: ALBUMIN 4.6 g/dL (3.5-5.0); ANION GAP 13.9 MEQ/L (5-15); Calcium 9.2 mg/dL (8.4-10.2); Creatinine 1 1.91 mg/dL (0.66-1.25); Potassium 4.6 mmol/L (3.5-5.1); Total Protein 7.6 g/dL (6.3-8.2)
[2020-02-23 20:29] LABS: Appearance CLEAR (CLEAR); Bilirubin NEGATIVE (NEGATIVE); Blood MODERATE Ery/ul (0-5); Glucose NEGATIVE (NEGATIVE); Ketones NEGATIVE (NEGATIVE); Leukocyte Esterase NEGATIVE (NEGATIVE); Nitrite NEGATIVE (NEGATIVE); Protein,Urine Dip NEGATIVE (Negative); Specific Gravity 1.015 (1.005-1.025); Urobilinogen NEGATIVE mg/dL (0-1)
[2020-02-23 20:30] VITALS: O2SAT 95
[2020-02-23 20:35] LABS: Amphetamine,Urine NEGATIVE (NEGATIVE); Barbiturate,Urine NEGATIVE (NEGATIVE); Benzodiazepine,Urine NEGATIVE (NEGATIVE); Cocaine,Urine NEGATIVE (NEGATIVE); Methadone,Urine NEGATIVE (NEGATIVE); Opiate,Urine POSITIVE (NEGATIVE); PCP,Urine NEGATIVE (NEGATIVE); THC,Urine NEGATIVE (NEGATIVE)
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
[2020-02-23 21:55] VITALS: BP 140/77; PULSE 84
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
== END 2020-02-23 22:01 | disposition home or self-care (01) ==
LOC: ED 19:25
DX: S00.83XA Contusion of other part of head, initial encounter (principal); M54.2 Cervicalgia; R51 Headache; Y04.0XXA Assault by unarmed brawl or fight, initial encounter; Z79.01 Long term (current) use of anticoagulants; Z79.899 Other long term (current) drug therapy; Z79.891 Long term (current) use of opiate analgesic; E78.00 Pure hypercholesterolemia, unspecified; I10 Essential (primary) hypertension; I25.2 Old myocardial infarction; I25.10 Atherosclerotic heart disease of native coronary artery without angina pectoris
CPT/HCPCS: 36000; 36415; 70450; 70486; 72125; 80053; 80307; 81001; 84484; 85025; 93005; 93041; 99284

== ENCOUNTER 2020-10-21 15:33 | Observation (INO) | payer MEDICARE ==
[2020-10-21 16:02] LABS: Absolute Neutrophil Ct (ANC) 2.75 (1.4-6.9); BASOPHIL % 0.9 % (0.0-0.4); Basophil (Absolute #) 0.04 (0-0.4); Eosinophil % 0.9 % (0.00-5.0); Eosinophil (Absolute #) 0.04 (0-0.5); Hematocrit 38.7 % (42-50); Hemoglobin 12.7 gm/dl (12.5-18.0); Lymphocyte (Absolute #) 0.99 (1.0-4.6); Lymphocytes % 23.1 % (24.0-44.0); Mean Cell Volume 93.9 fl (78-100); Mean Corpuscular Hemoglobin 30.8 pg (26-32); Mean Corpuscular Hgb Concent. 32.8 g/dl (32-36); Mean Platelet Volume 8.6 fl (7.5-11.0); Monocyte (Absolute #) 0.47 (0.0-1.3); Neutrophil % 64.1 % (36.0-66.0); Platelet Count 132 K/mm3 (150-450); Red Blood Count 4.12 M/mm3 (4.1-5.6); Red Cell Distribution Width 13.3 % (11.5-14.0); White Blood Count 4.3 K/mm3 (4.0-10.5)
[2020-10-21 16:10] LABS: ALBUMIN 4.5 g/dL (3.5-5.0); ALKALINE PHOSPHATASE 83 U/L (38-126); ANION GAP 13.2 MEQ/L (5-15); BLOOD UREA NITROGEN 17 mg/dL (9-20); CHLORIDE 97 mmol/L (98-107); Calcium 9.4 mg/dL (8.4-10.2); Carbon Dioxide 25 mmol/L (22-30); Creatinine 1 1.08 mg/dL (0.66-1.25); EST GLOMERULAR FILTRATION RATE > 60.0 ML/MIN; Glucose 97 mg/dL (74-106); Potassium 4.5 mmol/L (3.5-5.1); SGOT/AST 31 U/L (17-59); SGPT/ALT 18 U/L (0-50); SODIUM 131 mmol/L (137-145); Total Protein 7.4 g/dL (6.3-8.2)
--- NOTE | 2020-10-21 16:17 | XRAY ---
Indication: Stroke. Multiple contiguous axial images obtained through the head without contrast. Comparison: February 23, 2020. There is again age-appropriate global atrophy, mild periventricular degenerative micro-ischemia bilaterally, and 5 mm left mid browne radiata benign calcification. No acute intracranial hemorrhage, abnormal extra-axial fluid collection, or mass effect. Fourth ventricle is midline without hydrocephalus. Bony calvarium intact. Visualized paranasal sinuses and master cells are clear. Impression: Continued nonacute senile brain.
--- NOTE | 2020-10-21 16:28 | XRAY ---
Indication: Chest pain. Stroke. Comparison: September 20, 2019. Portable chest unchanged again demonstrating minimal right base subsegmental atelectasis/scarring. Remaining heart and lungs unremarkable. Bony thorax intact again with osteopenia and degenerative changes. No new/acute findings.
--- NOTE | 2020-10-21 17:21 | ERPHSYRPT ---
- History of Present Illness Time Seen by Provider: 10/21/20 15:40 Source: patient Exam Limitations: no limitations Patient Subjective Stated Complaint: Pt great granddaughter stated "HE has had a previous stroke and he was normal 30 minutes ago and now he is not speaking, not moving well, and does not know what is happening." Triage Nursing Assessment: Pt presented alert, non verbal, generalized weakness in all extrememties, more notably on the left. Pt in no apparent respiratory distress. pt moaning slighlty. Physician History: Patient is an 79-year-old male presents to our ED with his granddaughter for evaluation of weakness. Granddaughter states that patient was working outdoors with her brother. Patient began to slur his speech and appeared weak. His speech was described as mumbling. Granddaughter reports that patient has had approximately 4 TIAs in the past. Patient is having difficulty providing information for this HPI. Patient denies pain. Patient symptoms started approximately half hour prior to arrival. Patient has been taking all medications as prescribed. He is on Plavix as well as aspirin. Timing/Duration: today Severity: moderate Character of Deficits: new weakness, impaired speech Deficits: cannot stand Baseline/Normal Cognition: alert oriented x 3 Current Cognition: alert but confused Baseline Gait: walks w/o assistance Associated Symptoms: confusion, ringing in ears, No fever, No nausea, No vomiting, No weakness, No muscle spasms, No numbness/tingling in legs/feet, No p aresthesia, No seizures, No slurred speech, No chest pain (Ringing in right ear.) Allergies/Adverse Reactions: No Known Drug Allergies Allergy (Verified 02/23/20 19:27) Home Medications: Aspirin EC 81 mg [Ecotrin 81 mg] 81 mg PO DAILY 07/06/17 [History] Hydrocodone Bit/Acetaminophen [Hydrocodon-Acetaminophn 10-325] 1 tab PO TID 07/06/17 [History] Lisinopril 20 mg [Zestril 20 MG] 20 mg PO DAILY 07/06/17 [History] Simvastatin 40 mg [Zocor 40 mg] 40 mg PO HS 07/06/17 [History] Donepezil HCl 10 mg [Aricept 10 MG] 5 mg PO HS 01/23/18 [History] Citalopram Hydrobromide [Citalopram HBr] 40 mg PO DAILY 03/06/18 [History] Clopidogrel Bisulfate [Clopidogrel] 75 mg PO DAILY 09/20/19 [History] Tizanidine HCl 4 mg [Zanaflex 4 MG] 4 mg PO BID PRN 09/20/19 [History] Diclofenac Sodium Gel [Voltaren GEL] 100 gm TP HS 10/21/20 [History] Meclizine HCl 12.5 mg PO TID 10/21/20 [History] Venlafaxine HCl [Effexor] 25 mg PO DAILY 10/21/20 [History] Hx Tetanus, Diphtheria Vaccination/Date Given: Yes Hx Influenza Vaccination/Date Given: Yes Hx Pneumococcal Vaccination/Date Given: Yes Immunizations Up to Date: Yes Travel Risk - International Travel Have you traveled outside of the country in past 3 weeks: No - Coronavirus Screening Are you exhibiting any of the following symptoms?: No Close contact with a COVID-19 positive Pt in past 14-21 Days: No - Review of Systems Constitutional: No Symptoms, Other (Review of systems obtained after patient sta tus improved. Granddaughter assisted with additional information.), No Fever, No Chills Eyes: No Symptoms Ears, Nose, & Throat: No Symptoms Respiratory: No Symptoms, No Cough, No Dyspnea Cardiac: No Symptoms, No Chest Pain, No Edema, No Syncope Abdominal/Gastrointestinal: No Symptoms, No Abdominal Pain, No Nausea, No Vomiting, No Diarrhea Genitourinary Symptoms: No Symptoms, No Dysuria Musculoskeletal: No Symptoms, No Back Pain, No Neck Pain Skin: No Symptoms, No Rash Neurological: No Symptoms, No Dizziness, No Focal Weakness, No Sensory Changes Psychological: No Symptoms Endocrine: No Symptoms Hematologic/Lymphatic: No Symptoms Immunological/Allergic: No Symptoms All Other Systems: Reviewed and Negative - Past Medical History Pertinent Past Medical History: Yes Neurological History: Dementia, Stroke, TIA ENT History: Cataracts Cardiac History: Coronary Artery Disease, High Cholesterol, Hypertension, Myocardial Infarction ([place]) Respiratory History: No Pertinent History Endocrine Medical History: No Pertinent History Musculoskeletal History: Arthritis GI Medical History: GERD History: No Pertinent History Psycho-Social History: No Pertinent History Male Reproductive Disorders: No Pertinent History Other Medical History: Cardiac stent x 4. - Past Surgical History Past Surgical History: Yes Neuro Surgical History: No Pertinent History Cardiac: Cardiac Catheterization, Cardiac Stent Respiratory: No Pertinent History Gastrointestinal: Hernia Repair, Other Genitourinary: No Pertinent History Musculoskeletal: No Pertinent History Male Surgical History: No Pertinent History Other Surgical History: hiatal hernia surgery - Social History Smoking Status: Never smoker Exposure to second hand smoke: No Drug Use: none Patient Lives Alone: Yes - Nursing Vital Signs Nursing Vital Signs: Initial Vital Signs Temperature 98.1 F 10/21/20 15:36 Pulse Rate 75 10/21/20 15:36 Respiratory Rate 18 10/21/20 15:36 Blood Pressure 175/82 10/21/20 15:36 O2 Sat by Pulse Oximetry 98 10/21/20 15:36 Pain Scale Pain Intensity 5 - Dao Coma Scale Best Eye Response (Dao): (4) open spontaneously Best Verbal Response ([place]): (2) incomprehsible sounds Best Motor Response (Dao): (5) localizes to pain [place] Total: 11 - Physical Exam General Appearance: no apparent distress, alert, other (And is somewhat lethargic.) Eye Exam: bilateral eye: normal inspection, PERRL, EOMI Ears, Nose, Throat Exam: normal ENT inspection, moist mucous membranes Neck Exam: normal inspection, non-tender, supple Respiratory: normal breath sounds, lungs clear, airway intact, No respiratory distress Cardiovascular: regular rate/rhythm, No edema Gastrointestinal: soft, No tenderness, No distention Back Exam: normal inspection Extremity Exam: normal inspection, No pedal edema Mental Status: lethargy emergency medcl emt Exam: normal hearing, abnormal speech, tongue midline, No abnormal eye position, No abnormal pupil position, No facial weakness Coordination/Gait: normal finger to nose, abnormal gait Motor/Sensory: no motor deficit (No focal motor deficit. Patient appears generally weak.), No positive Babinski's sign Skin Exam: normal color, warm, dry, No rash SpO2 Interpretation: normal SpO2: 98 - Course Nursing assessment & vital signs reviewed: Yes EKG Interpreted by Me: RATE (77), Sinus Rhythm (Sinus rhythm right bundle branch block and left anterior fascicular block. Probable left ventricular hypertrophy.), NORMAL AXIS, NORMAL INTERVALS - Radiology Exams Chest X-ray Interpretation: Teleradiologist Report (Portable chest unchanged again demonstrating minimal right base subsegmental atelectasis versus scarring. Remaining heart and lungs are unremarkable. Bony thorax intact with osteopenia and degenerative changes. No new acute findings.) - CT Exams Head CT Interpretation: Negative (Age-appropriate global atrophy mild periventricular degenerative microischemia bilaterally and a 5 mm left mid browne radiata benign calcification. No acute intracranial hemorrhage abnormal extra-axial fluid collection or mass-effect. Fourth ventricle is midline without hydrocephalus. Bony calvar) Other CT Interpretation: Tele-radiologist Report (CTA head no comparisons. Normal variant origin left [employer]. Remaining CT brain normal. Minimal right carotid bulb calcified plaquing without stenosis/obstruction. Remaining CT neck normal. Incidental osteopenia and moderate/advanced multilevel disc disease.) Ordered Tests: Active Orders 24 hr Category Date Time Status Coding Clerk STAT Care 10/21/20 15:53 Active EKG-ER Only STAT Care 10/21/20 15:53 Active IV Insertion STAT Care 10/21/20 15:53 Active IV Insertion-2nd Peripheral STAT Care 10/21/20 15:53 Active NPO (ED) STAT Care 10/21/20 15:53 Active Pulse Oximetry (ED) STAT Care 10/21/20 15:53 Active CHEST 1 VIEW (PORTABLE) Stat Exams 10/21/20 15:[address] ANGIOGRAPHY NECK [CT] Stat Exams 10/21/20 17:05 Taken CTA HEAD W AND/OR WO CONTRAST [CT] Stat Exams 10/21/20 17:05 Taken HEAD WITHOUT CONTRAST [CT] Routine Exams 10/21/20 15:47 Completed CBC W DIFF Stat Lab 10/21/20 15:45 Completed CMP Stat Lab 10/21/20 15:45 Completed ETHYL ALCOHOL Stat Lab 10/21/20 15:45 Completed TROPONIN Q3H Lab 10/21/20 15:45 Completed TROPONIN Q3H Lab 10/21/20 19:00 Completed TROPONIN Q3H Lab 10/21/20 22:00 Ordered TROPONIN Q3H Lab 10/22/20 01:00 Ordered TROPONIN Q3H Lab 10/22/20 04:00 Ordered TSH [TSH, 3RD Generation] Stat Lab 10/21/20 18:48 Completed UA W/RFX UR CULTURE Stat Lab 10/21/20 17:04 Completed Urine Triage Profile Stat Lab 10/21/20 17:04 Completed Medication Summary Generic Name Dose Route Start Last Admin Trade Name Freq PRN Reason Stop Dose Admin Sodium Chloride 1,000 mls @ 75 mls/hr 10/21/20 17:30 10/21/20 17:55 Sodium Chloride 0.9% 1000 Ml IV 11/20/20 17:29 75 mls/hr .[id number] MEET Administration Lab/Rad Data: Laboratory Result Diagrams 10/21/20 15:45 10/21/20 15:45 Laboratory Results 10/21/20 10/21/20 10/21/20 Range/Units 19:00 19:00 19:00 WBC (4.0-10.5) K/mm3 RBC (4.1-5.6) M/mm3 Hgb (12.5-18.0) gm/dl Hct (42-50) % MCV (78-100) fl MCH (26-32) pg MCHC (32-36) g/dl RDW (11.5-14.0) % Plt Count (150-450) K/mm3 MPV (7.5-11.0) fl Gran % (36.0-66.0) % Eos # (Auto) (0-0.5) Absolute Lymphs (auto) (1.0-4.6) Absolute Monos (auto) (0.0-1.3) Lymphocytes % (24.0-44.0) % Monocytes % (0.0-12.0) % Eosinophils % (0.00-5.0) % Basophils % (0.0-0.4) % Absolute Granulocytes (1.4-6.9) Basophils # (0-0.4) Sodium (137-145) mmol/L Potassium (3.5-5.1) mmol/L Chloride (98-107) mmol/L Carbon Dioxide (22-30) mmol/L Anion Gap (5-15) MEQ/L BUN (9-20) mg/dL Creatinine (0.66-1.25) mg/dL Estimated GFR ML/MIN Glucose (74-106) mg/dL Calcium (8.4-10.2) mg/dL Total Bilirubin (0.2-1.3) mg/dL AST (17-59) U/L ALT (0-50) U/L Alkaline Phosphatase (38-126) U/L Ammonia < 9 L (9-30) umol/L Troponin I < 0.012 (0.000-0.034) ng/mL Serum Total Protein (6.3-8.2) g/dL Albumin (3.5-5.0) g/dL TSH 3rd Generation (0.47-4.68) mIU/L Urine Color (YELLOW) Urine Appearance (CLEAR) Urine pH (5-6) Ur Specific [place] (1.005-1.025) Urine Protein (Negative) Urine Ketones (NEGATIVE) Urine Blood (0-5) Corey/ul Urine Nitrite (NEGATIVE) Urine Bilirubin (NEGATIVE) Urine Urobilinogen (0-1) mg/dL Ur Leukocyte Esterase (NEGATIVE) Urine WBC (Auto) (0-5) /HPF Urine RBC (Auto) (0-2) /HPF U Epithel Cells (Auto) (FEW) /HPF Urine Bacteria (Auto) (NEGATIVE) /HPF Urine Mucus (Auto) (NEGATIVE) /HPF Urine Culture Reflexed (NO) Urine Glucose (NEGATIVE) mg/dL Urine Opiates Level (NEGATIVE) Ur Methadone (NEGATIVE) Urine Barbiturates (NEGATIVE) Ur Phencyclidine (PCP) (NEGATIVE) Urine Amphetamine (NEGATIVE) U Benzodiazepine Level (NEGATIVE) Urine Cocaine (NEGATIVE) Urine Marijuana (THC) (NEGATIVE) Ethyl Alcohol (0-10) mg/dL Influenza Type A Ag NEGATIVE (NEGATIVE) Influenza Type B Ag NEGATIVE (NEGATIVE) RSV (PCR) NEGATIVE (Negative) SARS-CoV-2 (PCR) NEGATIVE (NEGATIVE) 10/21/20 10/21/20 10/21/20 Range/Units 18:48 17:04 17:04 WBC (4.0-10.5) K/mm3 RBC (4.1-5.6) M/mm3 Hgb (12.5-18.0) gm/dl Hct (42-50) % MCV (78-100) fl MCH (26-32) pg MCHC (32-36) g/dl RDW (11.5-14.0) % Plt Count (150-450) K/mm3 MPV (7.5-11.0) fl Gran % (36.0-66.0) % Eos # (Auto) (0-0.5) Absolute Lymphs (auto) (1.0-4.6) Absolute Monos (auto) (0.0-1.3) Lymphocytes % (24.0-44.0) % Monocytes % (0.0-12.0) % Eosinophils % (0.00-5.0) % Basophils % (0.0-0.4) % Absolute Granulocytes (1.4-6.9) Basophils # (0-0.4) Sodium (137-145) mmol/L Potassium (3.5-5.1) mmol/L Chloride (98-107) mmol/L Carbon Dioxide (22-30) mmol/L Anion Gap (5-15) MEQ/L BUN (9-20) mg/dL Creatinine (0.66-1.25) mg/dL Estimated GFR ML/MIN Glucose (74-106) mg/dL Calcium (8.4-10.2) mg/dL Total Bilirubin (0.2-1.3) mg/dL AST (17-59) U/L ALT (0-50) U/L Alkaline Phosphatase (38-126) U/L Ammonia (9-30) umol/L Troponin I (0.000-0.034) ng/mL Serum Total Protein (6.3-8.2) g/dL Albumin (3.5-5.0) g/dL TSH 3rd Generation 1.660 (0.47-4.68) mIU/L Urine Color YELLOW (YELLOW) Urine Appearance CLEAR (CLEAR) Urine pH 5.0 (5-6) Ur Specific [place] 1.016 (1.005-1.025) Urine Protein NEGATIVE (Negative) Urine Ketones NEGATIVE (NEGATIVE) Urine Blood MODERATE (0-5) Corey/ul Urine Nitrite NEGATIVE (NEGATIVE) Urine Bilirubin NEGATIVE (NEGATIVE) Urine Urobilinogen NEGATIVE (0-1) mg/dL Ur Leukocyte Esterase NEGATIVE (NEGATIVE) Urine WBC (Auto) NONE (0-5) /HPF Urine RBC (Auto) 6-10 (0-2) /HPF U Epithel Cells (Auto) NONE (FEW) /HPF Urine Bacteria (Auto) NONE (NEGATIVE) /HPF Urine Mucus (Auto) SLIGHT (NEGATIVE) /HPF Urine Culture Reflexed NO (NO) Urine Glucose NEGATIVE (NEGATIVE) mg/dL Urine Opiates Level POSITIVE (NEGATIVE) Ur Methadone NEGATIVE (NEGATIVE) Urine Barbiturates NEGATIVE (NEGATIVE) Ur Phencyclidine (PCP) NEGATIVE (NEGATIVE) Urine Amphetamine NEGATIVE (NEGATIVE) U Benzodiazepine Level NEGATIVE (NEGATIVE) Urine Cocaine NEGATIVE (NEGATIVE) Urine Marijuana (THC) NEGATIVE (NEGATIVE) Ethyl Alcohol (0-10) mg/dL Influenza Type A Ag (NEGATIVE) Influenza Type B Ag (NEGATIVE) RSV (PCR) (Negative) SARS-CoV-2 (PCR) (NEGATIVE) 10/21/20 10/21/20 10/21/20 Range/Units 15:45 15:45 15:45 WBC (4.0-10.5) K/mm3 RBC (4.1-5.6) M/mm3 Hgb (12.5-18.0) gm/dl Hct (42-50) % MCV (78-100) fl MCH (26-32) pg MCHC (32-36) g/dl RDW (11.5-14.0) % Plt Count (150-450) K/mm3 MPV (7.5-11.0) fl Gran % (36.0-66.0) % Eos # (Auto) (0-0.5) Absolute Lymphs (auto) (1.0-4.6) Absolute Monos (auto) (0.0-1.3) Lymphocytes % (24.0-44.0) % Monocytes % (0.0-12.0) % Eosinophils % (0.00-5.0) % Basophils % (0.0-0.4) % Absolute Granulocytes (1.4-6.9) Basophils # (0-0.4) Sodium 131 L (137-145) mmol/L Potassium 4.5 (3.5-5.1) mmol/L Chloride 97 L (98-107) mmol/L Carbon Dioxide 25 (22-30) mmol/L Anion Gap 13.2 (5-15) MEQ/L BUN 17 (9-20) mg/dL Creatinine 1.08 (0.66-1.25) mg/dL Estimated GFR > 60.0 ML/MIN Glucose 97 (74-106) mg/dL Calcium 9.4 (8.4-10.2) mg/dL Total Bilirubin 0.80 (0.2-1.3) mg/dL AST 31 (17-59) U/L ALT 18 (0-50) U/L Alkaline Phosphatase 83 (38-126) U/L Ammonia (9-30) umol/L Troponin I < 0.012 (0.000-0.034) ng/mL Serum Total Protein 7.4 (6.3-8.2) g/dL Albumin 4.5 (3.5-5.0) g/dL TSH 3rd Generation (0.47-4.68) mIU/L Urine Color (YELLOW) Urine Appearance (CLEAR) Urine pH (5-6) Ur Specific [place] (1.005-1.025) Urine Protein (Negative) Urine Ketones (NEGATIVE) Urine Blood (0-5) Corey/ul Urine Nitrite (NEGATIVE) Urine Bilirubin (NEGATIVE) Urine Urobilinogen (0-1) mg/dL Ur Leukocyte Esterase (NEGATIVE) Urine WBC (Auto) (0-5) /HPF Urine RBC (Auto) (0-2) /HPF U Epithel Cells (Auto) (FEW) /HPF Urine Bacteria (Auto) (NEGATIVE) /HPF Urine Mucus (Auto) (NEGATIVE) /HPF Urine Culture Reflexed (NO) Urine Glucose (NEGATIVE) mg/dL Urine Opiates Level (NEGATIVE) Ur Methadone (NEGATIVE) Urine Barbiturates (NEGATIVE) Ur Phencyclidine (PCP) (NEGATIVE) Urine Amphetamine (NEGATIVE) U Benzodiazepine Level (NEGATIVE) Urine Cocaine (NEGATIVE) Urine Marijuana (THC) (NEGATIVE) Ethyl Alcohol < 10 (0-10) mg/dL Influenza Type A Ag (NEGATIVE) Influenza Type B Ag (NEGATIVE) RSV (PCR) (Negative) SARS-CoV-2 (PCR) (NEGATIVE) 10/21/20 Range/Units 15:45 WBC 4.3 (4.0-10.5) K/mm3 RBC 4.12 (4.1-5.6) M/mm3 Hgb 12.7 (12.5-18.0) gm/dl Hct 38.7 L (42-50) % MCV 93.9 (78-100) fl MCH 30.8 (26-32) pg MCHC 32.8 (32-36) g/dl RDW 13.3 (11.5-14.0) % Plt Count 132 L (150-450) K/mm3 MPV 8.6 (7.5-11.0) fl Gran % 64.1 (36.0-66.0) % Eos # (Auto) 0.04 (0-0.5) Absolute Lymphs (auto) 0.99 L (1.0-4.6) Absolute Monos (auto) 0.47 (0.0-1.3) Lymphocytes % 23.1 L (24.0-44.0) % Monocytes % 11.0 (0.0-12.0) % Eosinophils % 0.9 (0.00-5.0) % Basophils % 0.9 (0.0-0.4) % Absolute Granulocytes 2.75 (1.4-6.9) Basophils # 0.04 (0-0.4) Sodium (137-145) mmol/L Potassium (3.5-5.1) mmol/L Chloride (98-107) mmol/L Carbon Dioxide (22-30) mmol/L Anion Gap (5-15) MEQ/L BUN (9-20) mg/dL Creatinine (0.66-1.25) mg/dL Estimated GFR ML/MIN Glucose (74-106) mg/dL Calcium (8.4-10.2) mg/dL Total Bilirubin (0.2-1.3) mg/dL AST (17-59) U/L ALT (0-50) U/L Alkaline Phosphatase (38-126) U/L Ammonia (9-30) umol/L Troponin I (0.000-0.034) ng/mL Serum Total Protein (6.3-8.2) g/dL Albumin (3.5-5.0) g/dL TSH 3rd Generation (0.47-4.68) mIU/L Urine Color (YELLOW) Urine Appearance (CLEAR) Urine pH (5-6) Ur Specific [place] (1.005-1.025) Urine Protein (Negative) Urine Ketones (NEGATIVE) Urine Blood (0-5) Corey/ul Urine Nitrite (NEGATIVE) Urine Bilirubin (NEGATIVE) Urine Urobilinogen (0-1) mg/dL Ur Leukocyte Esterase (NEGATIVE) Urine WBC (Auto) (0-5) /HPF Urine RBC (Auto) (0-2) /HPF U Epithel Cells (Auto) (FEW) /HPF Urine Bacteria (Auto) (NEGATIVE) /HPF Urine Mucus (Auto) (NEGATIVE) /HPF Urine Culture Reflexed (NO) Urine Glucose (NEGATIVE) mg/dL Urine Opiates Level (NEGATIVE) Ur Methadone (NEGATIVE) Urine Barbiturates (NEGATIVE) Ur Phencyclidine (PCP) (NEGATIVE) Urine Amphetamine (NEGATIVE) U Benzodiazepine Level (NEGATIVE) Urine Cocaine (NEGATIVE) Urine Marijuana (THC) (NEGATIVE) Ethyl Alcohol (0-10) mg/dL Influenza Type A Ag (NEGATIVE) Influenza Type B Ag (NEGATIVE) RSV (PCR) (Negative) SARS-CoV-2 (PCR) (NEGATIVE) - Progress Progress: improved Progress Note: 10/21/20 19:40 CT head negative. Teleneuro consult obtained. Teleneuro does not feel patient is a candidate for TPA as he has doubt that this represents an acute ischemic stroke. Teleneuro feel that patient appears encephalopathic. Patient appears globally weak. Left somewhat greater than right. Teleneuro feels that the language deficit is due to a global encephalopathy rather than representing separate aphasia. Differential includes seizure/post ictal and encephalopathy. Toxic metabolic encephalopathy not ruled out. Patient significantly improved. He is conversant now. Patient has recollection of event. Patient denies pain. Patient smiling and conversant in room. CTA head and neck completed. No large vessel occlusion observed. We will admit patient. Case discussed with Dr. Ventura who accepts admission. Teleneurologist recommends echocardiogram EEG and noncontrast MRI brain. Patient to continue aspirin and Plavix. CBC CMP magnesium B12 additional troponin coagulation UA EKG including lipid profile should be included in work-up. Neurology recommends holding potentially sedating medications. Permissive blood pressure until acute stroke ruled out by MRI. Neurology to be reconsulted if MRI brain shows acute ischemia or for additional concerns. Patient will be admitted to [facility] telemetry. Rapid Covid negative. Portions of this note were created with voice recognition technology. There may be grammatical, spelling, punctuation or sound alike errors 10/21/20 19:[address] Jessy Will see patient in: hospital (observation) Counseled pt/family regarding: lab results, diagnosis, rad results - Departure Departure Disposition: Observation Clinical Impression: Osteopenia, Degenerative arthritis, Hematuria, Encephalopathy, Transient ischemic attack (TIA), Generalized weakness Condition: Stable Critical Care Time: No Referrals: HARDEEP VENTURA MD [Primary Care Provider] -
[2020-10-21] MEDS ORDERED: Sodium Chloride 0.9% 1000 ML 1,000 ML IV SCH ×2 (17:30→21:00)
[2020-10-21] MEDS ORDERED: Sodium Chloride 0.9% 1000 ML 1,000 ML ONE ×2 (17:53→20:38)
[2020-10-21 17:54] LABS: Appearance CLEAR (CLEAR); Bilirubin NEGATIVE (NEGATIVE); Blood MODERATE Ery/ul (0-5); Glucose NEGATIVE (NEGATIVE); Ketones NEGATIVE (NEGATIVE); Leukocyte Esterase NEGATIVE (NEGATIVE); Mucus SLIGHT /HPF (NEGATIVE); Nitrite NEGATIVE (NEGATIVE); Protein,Urine Dip NEGATIVE (Negative); Specific Gravity 1.016 (1.005-1.025); Urobilinogen NEGATIVE mg/dL (0-1)
[2020-10-21 18:06] LABS: Amphetamine,Urine NEGATIVE (NEGATIVE); Barbiturate,Urine NEGATIVE (NEGATIVE); Benzodiazepine,Urine NEGATIVE (NEGATIVE); Cocaine,Urine NEGATIVE (NEGATIVE); Methadone,Urine NEGATIVE (NEGATIVE); Opiate,Urine POSITIVE (NEGATIVE); PCP,Urine NEGATIVE (NEGATIVE); THC,Urine NEGATIVE (NEGATIVE)
[2020-10-21 19:45] LABS: INFLUENZA A NEGATIVE (NEGATIVE); INFLUENZA B NEGATIVE (NEGATIVE); RESPIRATORY SYNCTIAL VIRUS NEGATIVE (Negative)
[2020-10-21 20:20] LABS: INR 1.05 (0.8-3.0); PROTIME 11.9 SECONDS (8.83-12.87)
[2020-10-21 20:22] LABS: PTT 32.1 SECONDS (24.1-36.1)
[2020-10-21] MEDS ORDERED: Voltaren GEL TOP SCH (22:00)
[2020-10-21] MEDS ORDERED: HYDROCODONE-ACETAMIN 10-325 MG PO PRN (22:13)
[2020-10-21] MEDS: ZOCOR 20MG PO SCH (22:58)
[2020-10-21] MEDS: ECOTRIN 81 MG PO SCH (22:58)
[2020-10-21] MEDS: ceLEXa 20 MG PO SCH (22:58)
[2020-10-21] MEDS: Aricept 10 MG PO SCH (22:59)
[2020-10-22 05:35] LABS: Absolute Neutrophil Ct (ANC) 2.39 (1.4-6.9); BASOPHIL % 0.9 % (0.0-0.4); Basophil (Absolute #) 0.04 (0-0.4); Eosinophil (Absolute #) 0.13 (0-0.5); Hemoglobin 11.9 gm/dl (12.5-18.0); Lymphocyte (Absolute #) 1.25 (1.0-4.6); Lymphocytes % 28.4 % (24.0-44.0); Mean Corpuscular Hemoglobin 31.1 pg (26-32); Mean Corpuscular Hgb Concent. 33.1 g/dl (32-36); Mean Platelet Volume 8.3 fl (7.5-11.0); Monocyte (Absolute #) 0.59 (0.0-1.3); Monocytes % 13.4 % (0.0-12.0); Neutrophil % 54.3 % (36.0-66.0); Platelet Count 134 K/mm3 (150-450); Red Blood Count 3.83 M/mm3 (4.1-5.6); Red Cell Distribution Width 13.4 % (11.5-14.0); White Blood Count 4.4 K/mm3 (4.0-10.5)
[2020-10-22 05:51] LABS: ALBUMIN 3.8 g/dL (3.5-5.0); ALKALINE PHOSPHATASE 63 U/L (38-126); ANION GAP 11.6 MEQ/L (5-15); BLOOD UREA NITROGEN 16 mg/dL (9-20); CHLORIDE 102 mmol/L (98-107); Calcium 8.8 mg/dL (8.4-10.2); Carbon Dioxide 25 mmol/L (22-30); Cholesterol 99 mg/dL (50-200); Creatinine 1 0.92 mg/dL (0.66-1.25); EST GLOMERULAR FILTRATION RATE > 60.0 ML/MIN; Glucose 101 mg/dL (74-106); HDL CHOLESTEROL 39 mg/dL (40-60); LDL, DIRECT 34 mg/dL (30-100); Risk Ratio 2.5; SGOT/AST 27 U/L (17-59); SGPT/ALT 15 U/L (0-50); SODIUM 134 mmol/L (137-145); TRIGLYCERIDE 147 mg/dL (30-150); Total Protein 6.4 g/dL (6.3-8.2)
--- NOTE | 2020-10-22 08:40 | XRAY ---
Indication: Stroke symptoms. Large vessel obstruction. Conventional contrast enhanced CTA neck performed using 100 cc Isovue 370 contrast. Two-dimensional sagittal and coronal reformatted images obtained. Additional 3-dimensional reformatted images obtained using a separate workstation. Comparison: None Visualized aortic arch demonstrates very minimal calcifications without aneurysm/dissection. Normal widely patent branching right brachiocephalic, left common carotid, and left subclavian arteries. Examination of the right carotid circulation demonstrates minimal carotid bulb calcified plaquing without critical stenosis or obstruction. Remaining common carotid, internal carotid, and external carotid arteries are normal in CTA appearance. Examination of the left carotid circulation demonstrates very minimal eccentric common carotid calcified plaquing without critical stenosis/obstruction. Remaining carotid bulb, internal carotid, and external carotid arteries are normal in CTA appearance. Vertebral arteries are bilaterally symmetric without critical stenosis, obstruction, or AV malformation. Visualized soft tissues demonstrates small subcentimeter cervical lymph nodes bilaterally. No pathologic lymphadenopathy. Thyroid gland enhances homogeneously. Supra and infraglottic airway widely patent. Visualized osseous structures intact with mild osteopenia. Cervical spine demonstrates lordotic straightening with moderate/advanced multilevel degenerative spondylosis and 2-3 mm C7 spondylolisthesis. Lung apices are clear. CT head and CTA head reported separately. Impression: 1. Minimal bilateral carotid arteriosclerotic calcifications as detailed. Remaining CTA neck is negative. 2. Incidental osteopenia, cervical lordotic straightening, multilevel degenerative spondylosis, and minimal grade 1 C3 spondylolisthesis.
--- NOTE | 2020-10-22 08:44 | XRAY ---
Indication: Stroke symptoms. Large vessel obstruction. Conventional contrast enhanced CTA head performed using 100 cc Isovue 370 contrast. Two-dimensional sagittal and coronal reformatted images obtained. Additional 3-dimensional reformatted images obtained using a separate workstation. Comparison: None CTA neck reported separately. Distal internal carotid arteries are bilaterally symmetric without critical stenosis, obstruction, or AV malformation. Normal carotid terminus with normal branching A1 and M1 segments bilaterally. More distal anterior cerebral, middle cerebral, anterior communicating, and right posterior communicating arteries are normal in CTA appearance. Anatomic variant for origin of the left posterior cerebral artery. Basilar artery is normal in course and caliber with normal branching right posterior cerebral and left/right superior cerebellar arteries. Venous sinuses are unremarkable. Remaining whole brain negative for abnormal enhancing intra or extra-axial mass. Impression: 1. Anatomic variant for origin of the left posterior cerebral artery. 2. Remaining CTA brain is negative.
--- NOTE | 2020-10-22 09:09 | PCM.HP ---
History of Present Illness - Chief Complaint Chief Complaint: Encephalopathy History of Present Illness: is a 79 year old male who was working outside with his grandson yesterday, reportedly he became weak and speech was mumbling and made no sense, he progressed to being unable to stand, walk or talk. He does not recall the event, there was no report of seizure activity but details are pulled from ER report, no family is available today. He has been diagnosed with TIA in the past, no chest pain, no shortness of breath, no confusion today, he is alert and states he feels well. - Review of Systems Constitutional: No Fever, No Chills Respiratory: No Cough, No Short Of Breath Cardiac: No Chest Pain, No Edema, No Syncope Abdominal/Gastrointestinal: No Abdominal Pain, No Nausea, No Vomiting, No Diarrhea Genitourinary Symptoms: No Dysuria Skin: No Rash All Other Systems: Reviewed and Negative Medications & Allergies Home Medications: Home Medication List Aspirin EC 81 mg [Ecotrin 81 mg] 81 mg PO DAILY 07/06/17 [History Confirmed 10/21/20] Hydrocodone Bit/Acetaminophen [Hydrocodon-Acetaminophn 10-325] 1 tab PO TID PRN 07/06/17 [History Confirmed 10/21/20] Lisinopril 20 mg [Zestril 20 MG] 20 mg PO DAILY 07/06/17 [History Confirme d 10/21/20] Simvastatin 40 mg [Zocor 40 mg] 40 mg PO HS 07/06/17 [History Confirmed 10/21/20] Donepezil HCl 10 mg [Aricept 10 MG] 5 mg PO HS 01/23/18 [History Confirmed 10/21/20] Citalopram Hydrobromide [Citalopram HBr] 40 mg PO DAILY 03/06/18 [History Confirmed 10/21/20] Clopidogrel Bisulfate [Clopidogrel] 75 mg PO DAILY 09/20/19 [History Confirmed 10/21/20] Tizanidine HCl 4 mg [Zanaflex 4 MG] 4 mg PO BID PRN 09/20/19 [History Confirmed 10/21/20] Diclofenac Sodium Gel [Voltaren GEL] 100 gm TP HS 10/21/20 [History Confirmed 10/21/20] Meclizine HCl 12.5 mg PO TID 10/21/20 [History Confirmed 10/21/20] Venlafaxine HCl [Effexor] 25 mg PO DAILY 10/21/20 [History Confirmed 10/21/20] Allergies/Adverse Reactions: Allergies Allergy/AdvReac Type Severity Reaction Status Date / Time No Known Drug Allergies Allergy Verified 10/21/20 21:24 - Past Medical History Past Medical History: Yes Neurological History: Dementia, Stroke, TIA ENT History: Cataracts Cardiac History: Coronary Artery Disease, High Cholesterol, Hypertension, My ocardial Infarction (GA) Respiratory History: No Pertinent History Endocrine Medical History: No Pertinent History Musculoskelatal History: Arthritis GI Medical History: GERD History: No Pertinent History Pyscho-Social History: No Pertinent History Male Reproductive Disorders: No Pertinent History Comment: Cardiac stent x 4. - Past Surgical History Past Surgical History: Yes Neuro Surgical History: No Pertinent History Cardiac History: Cardiac Catheterization, Cardiac Stent Respiratory Surgery: No Pertinent History GI Surgical History: Hernia Repair, Other Genitourinary Surgical Hx: No Pertinent History Musculskeletal Surgical Hx: No Pertinent History Male Surgical History: No Pertinent History Other Surgical History: hiatal hernia surgery - Social History Smoking Status: Never smoker Exposure to second hand smoke: No Alcohol: None Drug Use: none - Physical Exam Vital Signs: Vital Signs - 24 hr Temp Pulse Resp BP Pulse Ox 10/22/20 07:16 98.5 F 66 24 123/72 94 L 10/22/20 04:10 98.6 F 62 18 125/67 96 10/21/20 22:20 98.7 F 68 16 147/80 97 10/21/20 21:19 84 18 150/100 96 10/21/20 21:00 96 10/21/20 20:00 73 18 150/124 99 10/21/20 19:59 98 10/21/20 18:04 75 17 145/84 98 10/21/20 17:04 98.0 F 80 20 163/88 98 10/21/20 16:37 97.0 F 78 18 159/89 98 10/21/20 15:36 98.1 F 75 18 175/82 98 General Appearance: no apparent distress, alert Neurologic Exam: alert, oriented x 3, cooperative, normal mood/affect, nml cerebellar function, nml station & gait, sensation nml, No motor deficits Respiratory Exam: normal breath sounds, lungs clear, No respiratory distress Cardiovascular Exam: regular rate/rhythm, normal heart sounds, normal peripheral pulses Gastrointestinal/Abdomen Exam: soft, normal bowel sounds, No tenderness, No mass Extremity Exam: normal inspection, normal range of motion, pelvis stable Skin Exam: normal color, warm, dry, No rash Results - Labs Lab/Micro Results: Lab Results-Last 24 Hours 10/21/20 10/21/20 10/21/20 Range/Units 15:45 15:45 15:45 WBC 4.3 (4.0-10.5) K/mm3 RBC 4.12 (4.1-5.6) M/mm3 Hgb 12.7 (12.5-18.0) gm/dl Hct 38.7 L (42-50) % MCV 93.9 (78-100) fl MCH 30.8 (26-32) pg MCHC 32.8 (32-36) g/dl RDW 13.3 (11.5-14.0) % Plt Count 132 L (150-450) K/mm3 MPV 8.6 (7.5-11.0) fl Gran % 64.1 (36.0-66.0) % Eos # (Auto) 0.04 (0-0.5) Absolute Lymphs (auto) 0.99 L (1.0-4.6) Absolute Monos (auto) 0.47 (0.0-1.3) Lymphocytes % 23.1 L (24.0-44.0) % Monocytes % 11.0 (0.0-12.0) % Eosinophils % 0.9 (0.00-5.0) % Basophils % 0.9 (0.0-0.4) % Absolute Granulocytes 2.75 (1.4-6.9) Basophils # 0.04 (0-0.4) PT (8.83-12.87) SECONDS INR (0.8-3.0) APTT (24.1-36.1) SECONDS Sodium (137-145) mmol/L Potassium (3.5-5.1) mmol/L Chloride (98-107) mmol/L Carbon Dioxide (22-30) mmol/L Anion Gap (5-15) MEQ/L BUN (9-20) mg/dL Creatinine (0.66-1.25) mg/dL Estimated GFR ML/MIN Glucose (74-106) mg/dL Calcium (8.4-10.2) mg/dL Total Bilirubin (0.2-1.3) mg/dL AST (17-59) U/L ALT (0-50) U/L Alkaline Phosphatase (38-126) U/L Ammonia (9-30) umol/L Troponin I < 0.012 (0.000-0.034) ng/mL Serum Total Protein (6.3-8.2) g/dL Albumin (3.5-5.0) g/dL Triglycerides (30-150) mg/dL Cholesterol (50-200) mg/dL LDL Cholesterol (30-100) mg/dL HDL Cholesterol (40-60) mg/dL Heart Disease Risk Ratio Vitamin B12 (239-931) pg/mL TSH 3rd Generation (0.47-4.68) mIU/L Urine Color (YELLOW) Urine Appearance (CLEAR) Urine pH (5-6) Ur Specific [place] (1.005-1.025) Urine Protein (Negative) Urine Ketones (NEGATIVE) Urine Blood (0-5) Corey/ul Urine Nitrite (NEGATIVE) Urine Bilirubin (NEGATIVE) Urine Urobilinogen (0-1) mg/dL Ur Leukocyte Esterase (NEGATIVE) Urine WBC (Auto) (0-5) /HPF Urine RBC (Auto) (0-2) /HPF U Epithel Cells (Auto) (FEW) /HPF Urine Bacteria (Auto) (NEGATIVE) /HPF Urine Mucus (Auto) (NEGATIVE) /HPF Urine Culture Reflexed (NO) Urine Glucose (NEGATIVE) mg/dL Urine Opiates Level (NEGATIVE) Ur Methadone (NEGATIVE) Urine Barbiturates (NEGATIVE) Ur Phencyclidine (PCP) (NEGATIVE) Urine Amphetamine (NEGATIVE) U Benzodiazepine Level (NEGATIVE) Urine Cocaine (NEGATIVE) Urine Marijuana (THC) (NEGATIVE) Ethyl Alcohol < 10 (0-10) mg/dL Influenza Type A Ag (NEGATIVE) Influenza Type B Ag (NEGATIVE) RSV (PCR) (Negative) SARS-CoV-2 (PCR) (NEGATIVE) 10/21/20 10/21/20 10/21/20 Range/Units 15:45 17:04 17:04 WBC (4.0-10.5) K/mm3 RBC (4.1-5.6) M/mm3 Hgb (12.5-18.0) gm/dl Hct (42-50) % MCV (78-100) fl MCH (26-32) pg MCHC (32-36) g/dl RDW (11.5-14.0) % Plt Count (150-450) K/mm3 MPV (7.5-11.0) fl Gran % (36.0-66.0) % Eos # (Auto) (0-0.5) Absolute Lymphs (auto) (1.0-4.6) Absolute Monos (auto) (0.0-1.3) Lymphocytes % (24.0-44.0) % Monocytes % (0.0-12.0) % Eosinophils % (0.00-5.0) % Basophils % (0.0-0.4) % Absolute Granulocytes (1.4-6.9) Basophils # (0-0.4) PT (8.83-12.87) SECONDS INR (0.8-3.0) APTT (24.1-36.1) SECONDS Sodium 131 L (137-145) mmol/L Potassium 4.5 (3.5-5.1) mmol/L Chloride 97 L (98-107) mmol/L Carbon Dioxide 25 (22-30) mmol/L Anion Gap 13.2 (5-15) MEQ/L BUN 17 (9-20) mg/dL Creatinine 1.08 (0.66-1.25) mg/dL Estimated GFR > 60.0 ML/MIN Glucose 97 (74-106) mg/dL Calcium 9.4 (8.4-10.2) mg/dL Total Bilirubin 0.80 (0.2-1.3) mg/dL AST 31 (17-59) U/L ALT 18 (0-50) U/L Alkaline Phosphatase 83 (38-126) U/L Ammonia (9-30) umol/L Troponin I (0.000-0.034) ng/mL Serum Total Protein 7.4 (6.3-8.2) g/dL Albumin 4.5 (3.5-5.0) g/dL Triglycerides (30-150) mg/dL Cholesterol (50-200) mg/dL LDL Cholesterol (30-100) mg/dL HDL Cholesterol (40-60) mg/dL Heart Disease Risk Ratio Vitamin B12 (239-931) pg/mL TSH 3rd Generation (0.47-4.68) mIU/L Urine Color YELLOW (YELLOW) Urine Appearance CLEAR (CLEAR) Urine pH 5.0 (5-6) Ur Specific [place] 1.016 (1.005-1.025) Urine Protein NEGATIVE (Negative) Urine Ketones NEGATIVE (NEGATIVE) Urine Blood MODERATE (0-5) Corey/ul Urine Nitrite NEGATIVE (NEGATIVE) Urine Bilirubin NEGATIVE (NEGATIVE) Urine Urobilinogen NEGATIVE (0-1) mg/dL Ur Leukocyte Esterase NEGATIVE (NEGATIVE) Urine WBC (Auto) NONE (0-5) /HPF Urine RBC (Auto) 6-10 (0-2) /HPF U Epithel Cells (Auto) NONE (FEW) /HPF Urine Bacteria (Auto) NONE (NEGATIVE) /HPF Urine Mucus (Auto) SLIGHT (NEGATIVE) /HPF Urine Culture Reflexed NO (NO) Urine Glucose NEGATIVE (NEGATIVE) mg/dL Urine Opiates Level POSITIVE (NEGATIVE) Ur Methadone NEGATIVE (NEGATIVE) Urine Barbiturates NEGATIVE (NEGATIVE) Ur Phencyclidine (PCP) NEGATIVE (NEGATIVE) Urine Amphetamine NEGATIVE (NEGATIVE) U Benzodiazepine Level NEGATIVE (NEGATIVE) Urine Cocaine NEGATIVE (NEGATIVE) Urine Marijuana (THC) NEGATIVE (NEGATIVE) Ethyl Alcohol (0-10) mg/dL Influenza Type A Ag (NEGATIVE) Influenza Type B Ag (NEGATIVE) RSV (PCR) (Negative) SARS-CoV-2 (PCR) (NEGATIVE) 10/21/20 10/21/20 10/21/20 Range/Units 18:48 19:00 19:00 WBC (4.0-10.5) K/mm3 RBC (4.1-5.6) M/mm3 Hgb (12.5-18.0) gm/dl Hct (42-50) % MCV (78-100) fl MCH (26-32) pg MCHC (32-36) g/dl RDW (11.5-14.0) % Plt Count (150-450) K/mm3 MPV (7.5-11.0) fl Gran % (36.0-66.0) % Eos # (Auto) (0-0.5) Absolute Lymphs (auto) (1.0-4.6) Absolute Monos (auto) (0.0-1.3) Lymphocytes % (24.0-44.0) % Monocytes % (0.0-12.0) % Eosinophils % (0.00-5.0) % Basophils % (0.0-0.4) % Absolute Granulocytes (1.4-6.9) Basophils # (0-0.4) PT (8.83-12.87) SECONDS INR (0.8-3.0) APTT (24.1-36.1) SECONDS Sodium (137-145) mmol/L Potassium (3.5-5.1) mmol/L Chloride (98-107) mmol/L Carbon Dioxide (22-30) mmol/L Anion Gap (5-15) MEQ/L BUN (9-20) mg/dL Creatinine (0.66-1.25) mg/dL Estimated GFR ML/MIN Glucose (74-106) mg/dL Calcium (8.4-10.2) mg/dL Total Bilirubin (0.2-1.3) mg/dL AST (17-59) U/L ALT (0-50) U/L Alkaline Phosphatase (38-126) U/L Ammonia < 9 L (9-30) umol/L Troponin I < 0.012 (0.000-0.034) ng/mL Serum Total Protein (6.3-8.2) g/dL Albumin (3.5-5.0) g/dL Triglycerides (30-150) mg/dL Cholesterol (50-200) mg/dL LDL Cholesterol (30-100) mg/dL HDL Cholesterol (40-60) mg/dL Heart Disease Risk Ratio Vitamin B12 (239-931) pg/mL TSH 3rd Generation 1.660 (0.47-4.68) mIU/L Urine Color (YELLOW) Urine Appearance (CLEAR) Urine pH (5-6) Ur Specific [place] (1.005-1.025) Urine Protein (Negative) Urine Ketones (NEGATIVE) Urine Blood (0-5) Corey/ul Urine Nitrite (NEGATIVE) Urine Bilirubin (NEGATIVE) Urine Urobilinogen (0-1) mg/dL Ur Leukocyte Esterase (NEGATIVE) Urine WBC (Auto) (0-5) /HPF Urine RBC (Auto) (0-2) /HPF U Epithel Cells (Auto) (FEW) /HPF Urine Bacteria (Auto) (NEGATIVE) /HPF Urine Mucus (Auto) (NEGATIVE) /HPF Urine Culture Reflexed (NO) Urine Glucose (NEGATIVE) mg/dL Urine Opiates Level (NEGATIVE) Ur Methadone (NEGATIVE) Urine Barbiturates (NEGATIVE) Ur Phencyclidine (PCP) (NEGATIVE) Urine Amphetamine (NEGATIVE) U Benzodiazepine Level (NEGATIVE) Urine Cocaine (NEGATIVE) Urine Marijuana (THC) (NEGATIVE) Ethyl Alcohol (0-10) mg/dL Influenza Type A Ag (NEGATIVE) Influenza Type B Ag (NEGATIVE) RSV (PCR) (Negative) SARS-CoV-2 (PCR) (NEGATIVE) 10/21/20 10/21/20 10/21/20 Range/Units 19:00 20:14 22:20 WBC (4.0-10.5) K/mm3 RBC (4.1-5.6) M/mm3 Hgb (12.5-18.0) gm/dl Hct (42-50) % MCV (78-100) fl MCH (26-32) pg MCHC (32-36) g/dl RDW (11.5-14.0) % Plt Count (150-450) K/mm3 MPV (7.5-11.0) fl Gran % (36.0-66.0) % Eos # (Auto) (0-0.5) Absolute Lymphs (auto) (1.0-4.6) Absolute Monos (auto) (0.0-1.3) Lymphocytes % (24.0-44.0) % Monocytes % (0.0-12.0) % Eosinophils % (0.00-5.0) % Basophils % (0.0-0.4) % Absolute Granulocytes (1.4-6.9) Basophils # (0-0.4) PT 11.9 (8.83-12.87) SECONDS INR 1.05 (0.8-3.0) APTT 32.1 (24.1-36.1) SECONDS Sodium (137-145) mmol/L Potassium (3.5-5.1) mmol/L Chloride (98-107) mmol/L Carbon Dioxide (22-30) mmol/L Anion Gap (5-15) MEQ/L BUN (9-20) mg/dL Creatinine (0.66-1.25) mg/dL Estimated GFR ML/MIN Glucose (74-106) mg/dL Calcium (8.4-10.2) mg/dL Total Bilirubin (0.2-1.3) mg/dL AST (17-59) U/L ALT (0-50) U/L Alkaline Phosphatase (38-126) U/L Ammonia (9-30) umol/L Troponin I < 0.012 (0.000-0.034) ng/mL Serum Total Protein (6.3-8.2) g/dL Albumin (3.5-5.0) g/dL Triglycerides (30-150) mg/dL Cholesterol (50-200) mg/dL LDL Cholesterol (30-100) mg/dL HDL Cholesterol (40-60) mg/dL Heart Disease Risk Ratio Vitamin B12 (239-931) pg/mL TSH 3rd Generation (0.47-4.68) mIU/L Urine Color (YELLOW) Urine Appearance (CLEAR) Urine pH (5-6) Ur Specific [place] (1.005-1.025) Urine Protein (Negative) Urine Ketones (NEGATIVE) Urine Blood (0-5) Corey/ul Urine Nitrite (NEGATIVE) Urine Bilirubin (NEGATIVE) Urine Urobilinogen (0-1) mg/dL Ur Leukocyte Esterase (NEGATIVE) Urine WBC (Auto) (0-5) /HPF Urine RBC (Auto) (0-2) /HPF U Epithel Cells (Auto) (FEW) /HPF Urine Bacteria (Auto) (NEGATIVE) /HPF Urine Mucus (Auto) (NEGATIVE) /HPF Urine Culture Reflexed (NO) Urine Glucose (NEGATIVE) mg/dL Urine Opiates Level (NEGATIVE) Ur Methadone (NEGATIVE) Urine Barbiturates (NEGATIVE) Ur Phencyclidine (PCP) (NEGATIVE) Urine Amphetamine (NEGATIVE) U Benzodiazepine Level (NEGATIVE) Urine Cocaine (NEGATIVE) Urine Marijuana (THC) (NEGATIVE) Ethyl Alcohol (0-10) mg/dL Influenza Type A Ag NEGATIVE (NEGATIVE) Influenza Type B Ag NEGATIVE (NEGATIVE) RSV (PCR) NEGATIVE (Negative) SARS-CoV-2 (PCR) NEGATIVE (NEGATIVE) 10/21/20 10/22/20 10/22/20 Range/Units 22:20 01:15 04:35 WBC (4.0-10.5) K/mm3 RBC (4.1-5.6) M/mm3 Hgb (12.5-18.0) gm/dl Hct (42-50) % MCV (78-100) fl MCH (26-32) pg MCHC (32-36) g/dl RDW (11.5-14.0) % Plt Count (150-450) K/mm3 MPV (7.5-11.0) fl Gran % (36.0-66.0) % Eos # (Auto) (0-0.5) Absolute Lymphs (auto) (1.0-4.6) Absolute Monos (auto) (0.0-1.3) Lymphocytes % (24.0-44.0) % Monocytes % (0.0-12.0) % Eosinophils % (0.00-5.0) % Basophils % (0.0-0.4) % Absolute Granulocytes (1.4-6.9) Basophils # (0-0.4) PT (8.83-12.87) SECONDS INR (0.8-3.0) APTT (24.1-36.1) SECONDS Sodium (137-145) mmol/L Potassium (3.5-5.1) mmol/L Chloride (98-107) mmol/L Carbon Dioxide (22-30) mmol/L Anion Gap (5-15) MEQ/L BUN (9-20) mg/dL Creatinine (0.66-1.25) mg/dL Estimated GFR ML/MIN Glucose (74-106) mg/dL Calcium (8.4-10.2) mg/dL Total Bilirubin (0.2-1.3) mg/dL AST (17-59) U/L ALT (0-50) U/L Alkaline Phosphatase (38-126) U/L Ammonia (9-30) umol/L Troponin I < 0.012 0.013 (0.000-0.034) ng/mL Serum Total Protein (6.3-8.2) g/dL Albumin (3.5-5.0) g/dL Triglycerides (30-150) mg/dL Cholesterol (50-200) mg/dL LDL Cholesterol (30-100) mg/dL HDL Cholesterol (40-60) mg/dL Heart Disease Risk Ratio Vitamin B12 880 (239-931) pg/mL TSH 3rd Generation (0.47-4.68) mIU/L Urine Color (YELLOW) Urine Appearance (CLEAR) Urine pH (5-6) Ur Specific [place] (1.005-1.025) Urine Protein (Negative) Urine Ketones (NEGATIVE) Urine Blood (0-5) Corey/ul Urine Nitrite (NEGATIVE) Urine Bilirubin (NEGATIVE) Urine Urobilinogen (0-1) mg/dL Ur Leukocyte Esterase (NEGATIVE) Urine WBC (Auto) (0-5) /HPF Urine RBC (Auto) (0-2) /HPF U Epithel Cells (Auto) (FEW) /HPF Urine Bacteria (Auto) (NEGATIVE) /HPF Urine Mucus (Auto) (NEGATIVE) /HPF Urine Culture Reflexed (NO) Urine Glucose (NEGATIVE) mg/dL Urine Opiates Level (NEGATIVE) Ur Methadone (NEGATIVE) Urine Barbiturates (NEGATIVE) Ur Phencyclidine (PCP) (NEGATIVE) Urine Amphetamine (NEGATIVE) U Benzodiazepine Level (NEGATIVE) Urine Cocaine (NEGATIVE) Urine Marijuana (THC) (NEGATIVE) Ethyl Alcohol (0-10) mg/dL Influenza Type A Ag (NEGATIVE) Influenza Type B Ag (NEGATIVE) RSV (PCR) (Negative) SARS-CoV-2 (PCR) (NEGATIVE) 10/22/20 10/22/20 Range/Units 04:35 04:35 WBC 4.4 (4.0-10.5) K/mm3 RBC 3.83 L (4.1-5.6) M/mm3 Hgb 11.9 L (12.5-18.0) gm/dl Hct 36.0 L (42-50) % MCV 94.0 (78-100) fl MCH 31.1 (26-32) pg MCHC 33.1 (32-36) g/dl RDW 13.4 (11.5-14.0) % Plt Count 134 L (150-450) K/mm3 MPV 8.3 (7.5-11.0) fl Gran % 54.3 (36.0-66.0) % Eos # (Auto) 0.13 (0-0.5) Absolute Lymphs (auto) 1.25 (1.0-4.6) Absolute Monos (auto) 0.59 (0.0-1.3) Lymphocytes % 28.4 (24.0-44.0) % Monocytes % 13.4 H (0.0-12.0) % Eosinophils % 3.0 (0.00-5.0) % Basophils % 0.9 (0.0-0.4) % Absolute Granulocytes 2.39 (1.4-6.9) Basophils # 0.04 (0-0.4) PT (8.83-12.87) SECONDS INR (0.8-3.0) APTT (24.1-36.1) SECONDS Sodium 134 L (137-145) mmol/L Potassium 4.0 (3.5-5.1) mmol/L Chloride 102 (98-107) mmol/L Carbon Dioxide 25 (22-30) mmol/L Anion Gap 11.6 (5-15) MEQ/L BUN 16 (9-20) mg/dL Creatinine 0.92 (0.66-1.25) mg/dL Estimated GFR > 60.0 ML/MIN Glucose 101 (74-106) mg/dL Calcium 8.8 (8.4-10.2) mg/dL Total Bilirubin 0.60 (0.2-1.3) mg/dL AST 27 (17-59) U/L ALT 15 (0-50) U/L Alkaline Phosphatase 63 (38-126) U/L Ammonia (9-30) umol/L Troponin I (0.000-0.034) ng/mL Serum Total Protein 6.4 (6.3-8.2) g/dL Albumin 3.8 (3.5-5.0) g/dL Triglycerides 147 (30-150) mg/dL Cholesterol 99 (50-200) mg/dL LDL Cholesterol 34 (30-100) mg/dL HDL Cholesterol 39 L (40-60) mg/dL Heart Disease Risk Ratio 2.5 Vitamin B12 (239-931) pg/mL TSH 3rd Generation (0.47-4.68) mIU/L Urine Color (YELLOW) Urine Appearance (CLEAR) Urine pH (5-6) Ur Specific [place] (1.005-1.025) Urine Protein (Negative) Urine Ketones (NEGATIVE) Urine Blood (0-5) Corey/ul Urine Nitrite (NEGATIVE) Urine Bilirubin (NEGATIVE) Urine Urobilinogen (0-1) mg/dL Ur Leukocyte Esterase (NEGATIVE) Urine WBC (Auto) (0-5) /HPF Urine RBC (Auto) (0-2) /HPF U Epithel Cells (Auto) (FEW) /HPF Urine Bacteria (Auto) (NEGATIVE) /HPF Urine Mucus (Auto) (NEGATIVE) /HPF Urine Culture Reflexed (NO) Urine Glucose (NEGATIVE) mg/dL Urine Opiates Level (NEGATIVE) Ur Methadone (NEGATIVE) Urine Barbiturates (NEGATIVE) Ur Phencyclidine (PCP) (NEGATIVE) Urine Amphetamine (NEGATIVE) U Benzodiazepine Level (NEGATIVE) Urine Cocaine (NEGATIVE) Urine Marijuana (THC) (NEGATIVE) Ethyl Alcohol (0-10) mg/dL Influenza Type A Ag (NEGATIVE) Influenza Type B Ag (NEGATIVE) RSV (PCR) (Negative) SARS-CoV-2 (PCR) (NEGATIVE) - Radiology Impressions Radiology Exams & Impressions: Radiology Procedures Category Date Time Status CHEST 1 VIEW (PORTABLE) Stat Exams 10/21/20 15:[address] ANGIOGRAPHY NECK [CT] Stat Exams 10/21/20 17:05 Completed CTA HEAD W AND/OR WO CONTRAST [CT] Stat Exams 10/21/20 17:05 Completed ECHO W/2D AND DOPPLER [US] Routine Exams 10/22/20 Ordered HEAD WITHOUT CONTRAST [CT] Routine Exams 10/21/20 15:47 Completed MRI BRAIN W/O CONTRAST [MRI] Stat Exams 10/22/20 08:00 Ordered - Other Procedures and Tests Respiratory Therapy 10/21/20 21:00 EEG 41-60 Minutes (Normal) ONCE Assessment/Plan (1) Transient ischemic attack (TIA) Current Visit: Yes Status: Acute Assessment & Plan: suspect TIA based on transient nature of symptoms and rapid return to baseline, concern due to diffuse weakness so will pursue EEG, MRI brain and echo to complete workup. troponins have been negative, GA ruled out. lipid panel is good, patient is on aspirin therapy. if evidence of vascular insult on MRI would add plavix to regimen. hypertension present on arrival has arrived but also suggests vascular etiology/TIA in my opinion Code(s): G45.9 - TRANSIENT CEREBRAL ISCHEMIC ATTACK, UNSPECIFIED (2) Generalized weakness Current Visit: Yes Status: Acute Code(s): R53.1 - WEAKNESS
[2020-10-22] MEDS ORDERED: VENLAFAXINE HCL 25 MG PO SCH (10:00)
[2020-10-22] MEDS: ceLEXa 20 MG PO SCH (10:21)
[2020-10-22] MEDS: PLAVIX 75 MG Tablet PO SCH (10:21)
[2020-10-22] MEDS: Zestril 20 MG PO SCH (10:21)
[2020-10-22] MEDS: ECOTRIN 81 MG PO SCH (10:21)
[2020-10-22] MEDS: EFFEXOR 37.5 MG PO SCH (10:22)
--- NOTE | 2020-10-22 11:03 | XRAY ---
Indication: Stroke. Sagittal, coronal, and axial MRI brain was performed without contrast using T1, T2, FLAIR, diffusion, and ADC sequences. Comparison: September 20, 2019. There is again age-appropriate global atrophy, mild periventricular degenerative micro-ischemia signal bilaterally, and CT proven left mid browne radiata benign calcification. No acute intracranial hemorrhage, abnormal extra-axial fluid collection, or mass effect. Diffusion images remain negative for restricted signal. Fourth ventricle is midline without hydrocephalus. 7/8 cranial nerve complex bilaterally symmetric. Normal flow void signal within the major intracerebral circulation. Normal appearing craniocervical junction and sella turcica. Paranasal sinuses are clear. Impression: 1. Continued negative for acute intracranial abnormalities or evidence for evolving large vessel territorial stroke. 2. Again atrophy and degenerative micro-ischemia within normal limits for patient's age.
[2020-10-22] MEDS: ZOCOR 20MG PO SCH (21:24)
[2020-10-22] MEDS: Aricept 10 MG PO SCH (21:25)
[2020-10-22] MEDS ORDERED: Voltaren GEL TOP SCH (22:00)
[2020-10-23 05:25] VITALS: PULSE 60
[2020-10-23 05:25] LABS: Absolute Neutrophil Ct (ANC) 1.88 (1.4-6.9); BASOPHIL % 0.9 % (0.0-0.4); Basophil (Absolute #) 0.04 (0-0.4); Eosinophil (Absolute #) 0.17 (0-0.5); Hematocrit 38.2 % (42-50); Lymphocyte (Absolute #) 1.62 (1.0-4.6); Lymphocytes % 37.9 % (24.0-44.0); Mean Cell Volume 95.5 fl (78-100); Mean Corpuscular Hgb Concent. 31.4 g/dl (32-36); Mean Platelet Volume 8.4 fl (7.5-11.0); Monocyte (Absolute #) 0.57 (0.0-1.3); Monocytes % 13.3 % (0.0-12.0); Neutrophil % 43.9 % (36.0-66.0); Platelet Count 133 K/mm3 (150-450); Red Cell Distribution Width 13.5 % (11.5-14.0); White Blood Count 4.3 K/mm3 (4.0-10.5)
[2020-10-23 05:36] LABS: ANION GAP 10.8 MEQ/L (5-15); BLOOD UREA NITROGEN 18 mg/dL (9-20); CHLORIDE 101 mmol/L (98-107); Carbon Dioxide 26 mmol/L (22-30); Creatinine 1 0.95 mg/dL (0.66-1.25); EST GLOMERULAR FILTRATION RATE > 60.0 ML/MIN; Glucose 100 mg/dL (74-106); Potassium 4.1 mmol/L (3.5-5.1); SODIUM 134 mmol/L (137-145)
[2020-10-23 07:53] VITALS: BP 140/64; O2SAT 98
--- NOTE | 2020-10-23 10:09 | PCM.DS ---
Discharge Summary Date of Admission: 10/21/20 20:59 Admitting Physician: HARDEEP VENTURA Primary Care Provider: HARDEEP VENTURA Allergies Allergies No Known Drug Allergies Allergy (Verified 10/21/20 21:24) Hospital Summary - Hospital Course Hospital Course: patient was admitted following an episode of confusion and diffuse weakness with slurred speech, recovered quickly. MRI and CTA head/neck were negative, EEG normal. clinically most c/w TIA, troponins were negative, LA ruled out. echo pending at discharge, nothing on telemetry - Vitals & Intake/Output Vital Signs: Vital Signs Temperature 97.8 F 10/23/20 07:52 Pulse Rate 60 10/23/20 07:52 Respiratory Rate 14 10/23/20 07:52 Blood Pressure 140/64 10/23/20 07:52 O2 Sat by Pulse Oximetry 98 10/23/20 07:52 Intake & Output: Intake & Output 10/20/20 10/21/20 10/22/20 10/23/20 11:59 11:59 11:59 11:59 Intake Total 1054 3457 Output Total 875 1275 Balance 179 2182 Weight 87.5 kg - Lab Result Diagrams: 10/23/20 04:35 10/23/20 04:35 Lab Results-Last 24 Hrs: Lab Results-Last 24 Hours 10/23/20 10/23/20 Range/Units 04:35 04:35 WBC 4.3 (4.0-10.5) K/mm3 RBC 4.00 L (4.1-5.6) M/mm3 Hgb 12.0 L (12.5-18.0) gm/dl Hct 38.2 L (42-50) % MCV 95.5 (78-100) fl MCH 30.0 (26-32) pg MCHC 31.4 L (32-36) g/dl RDW 13.5 (11.5-14.0) % Plt Count 133 L (150-450) K/mm3 MPV 8.4 (7.5-11.0) fl Gran % 43.9 (36.0-66.0) % Eos # (Auto) 0.17 (0-0.5) Absolute Lymphs (auto) 1.62 (1.0-4.6) Absolute Monos (auto) 0.57 (0.0-1.3) Lymphocytes % 37.9 (24.0-44.0) % Monocytes % 13.3 H (0.0-12.0) % Eosinophils % 4.0 (0.00-5.0) % Basophils % 0.9 (0.0-0.4) % Absolute Granulocytes 1.88 (1.4-6.9) Basophils # 0.04 (0-0.4) Sodium 134 L (137-145) mmol/L Potassium 4.1 (3.5-5.1) mmol/L Chloride 101 (98-107) mmol/L Carbon Dioxide 26 (22-30) mmol/L Anion Gap 10.8 (5-15) MEQ/L BUN 18 (9-20) mg/dL Creatinine 0.95 (0.66-1.25) mg/dL Estimated GFR > 60.0 ML/MIN Glucose 100 (74-106) mg/dL Calcium 9.0 (8.4-10.2) mg/dL - Radiology Exams Ordered Rad Exams-Entire Visit: Radiology Procedures Category Date Time Status CHEST 1 VIEW (PORTABLE) Stat Exams 10/21/20 15:[address] ANGIOGRAPHY NECK [CT] Stat Exams 10/21/20 17:05 Completed CTA HEAD W AND/OR WO CONTRAST [CT] Stat Exams 10/21/20 17:05 Completed ECHO W/2D AND DOPPLER [US] Routine Exams 10/22/20 10:37 Taken HEAD WITHOUT CONTRAST [CT] Routine Exams 10/21/20 15:47 Completed MRI BRAIN W/O CONTRAST [MRI] Stat Exams 10/22/20 08:00 Completed - Procedures and Test Procedures and Tests throughout Hospitalization: Therapy Orders & Screens 10/21/20 21:00 EEG 41-60 Minutes (Normal) ONCE Comment: Reason For Exam: Discharge Exam General Appearance: no apparent distress, alert Neurologic Exam: alert, oriented x 3, cooperative, normal mood/affect, nml cerebellar function, sensation nml, No motor deficits Neck Exam: non-tender, supple Respiratory Exam: normal breath sounds, lungs clear, No respiratory distress Cardiovascular Exam: regular rate/rhythm, normal heart sounds Gastrointestinal/Abdomen Exam: soft, No tenderness, No mass Extremity Exam: normal inspection, normal range of motion Skin Exam: normal color, warm, dry Final Diagnosis/Problem List - Final Discharge Diagnosis/Problem (1) Transient ischemic attack (TIA) Current Visit: Yes Status: Acute Assessment & Plan: bp well controlled, on aspirin/plavix and simvastatin. medically optimized at this time for secondary prevention Code(s): G45.9 - TRANSIENT CEREBRAL ISCHEMIC ATTACK, UNSPECIFIED (2) Generalized weakness Current Visit: Yes Status: Acute Code(s): R53.1 - WEAKNESS - Discharge Disposition: Home, Self-Care Condition: Stable Prescriptions: Continue Hydrocodone Bit/Acetaminophen [Hydrocodon-Acetaminophn 10-325] 1 tab PO TID P RN Simvastatin 40 mg [Zocor 40 mg] 40 mg PO HS Lisinopril 20 mg [Zestril 20 MG] 20 mg PO DAILY Aspirin EC 81 mg [Ecotrin 81 mg] 81 mg PO DAILY Donepezil HCl 10 mg [Aricept 10 MG] 5 mg PO HS Citalopram Hydrobromide [Citalopram HBr] 40 mg PO DAILY Clopidogrel Bisulfate [Clopidogrel] 75 mg PO DAILY Tizanidine HCl 4 mg [Zanaflex 4 MG] 4 mg PO BID PRN PRN Reason: Pain Meclizine HCl 12.5 mg PO TID Diclofenac Sodium Gel [Voltaren GEL] 100 gm TP HS Venlafaxine HCl [Effexor] 25 mg PO DAILY Follow up with: HARDEEP VENTURA MD [Primary Care Provider] - 10/30/20 10:30 am
[2020-10-23] MEDS: PLAVIX 75 MG Tablet PO SCH (10:24)
[2020-10-23] MEDS: EFFEXOR 37.5 MG PO SCH (10:24)
[2020-10-23] MEDS: ceLEXa 20 MG PO SCH (10:25)
[2020-10-23] MEDS: ECOTRIN 81 MG PO SCH (10:25)
[2020-10-23] MEDS: Zestril 20 MG PO SCH (10:25)
--- NOTE | 2020-10-23 15:50 | ECHO ---
DATE: 10/22/2020 INDICATION: Syncope. A transthoracic echocardiograph examination with color Doppler was done. The study is very limited which precludes adequate assessment of the intracardiac anatomy and physiology. The left ventricle is poorly visualized. The estimated global left ventricular ejection fraction is around 50-55%. Color flow study did not indicate any significant valvular regurgitation. This is a very limited study.
== END 2020-10-23 10:40 | disposition home or self-care (01) ==
LOC: ED 15:33 → MED SURG 20:59
PROVIDERS: ADMIT Family Medicine; ATTEND Family Medicine
DX: G45.9 Transient cerebral ischemic attack, unspecified (principal); R41.0 Disorientation, unspecified; R53.1 Weakness; Z79.899 Other long term (current) drug therapy; I10 Essential (primary) hypertension; E78.00 Pure hypercholesterolemia, unspecified; Z86.73 Personal history of transient ischemic attack (TIA), and cerebral infarction without residual deficits
CPT/HCPCS: 0241U; 36415; 70450; 70496; 70498; 70551; 71045; 80048; 80053; 80061; 80307; 81001; 82140; 82607; 83721; 84443; 84484; 85025; 85610; 85730; 93005; 93041; 93306; 94760; 95812; 96360; 96361; 99285; G0480; Q3014; A9270-GY; G0378

== ENCOUNTER 2021-08-10 16:44 | Emergency (ER) | payer MEDICARE ==
--- NOTE | 2021-08-10 17:49 | ERPHSYRPT ---
- History of Present Illness Time Seen by Provider: 08/10/21 16:44 Patient Subjective Stated Complaint: Pt was at home alone between [id number] and sometime between that time the pt fell and injured his left arm around the elbow Triage Nursing Assessment: Pt brought to the ER by his , hypertensive, tachycardic, rates pain 6/10 in his left arm, skin tear to lateral distal upper arm, pain to the proximal medial lower arm, A&O to name and place, pt does have a hx of dementia, pt unsure if he hit his head when he fell, states that he lost all control of his legs Physician History: 80 years old male with history of dementia, baseline difficulty ambulation, walks with a cane, chronic weakness of legs which giveaway presented in the ER after his legs gave away while ambulating at home and he fell and hit the chair. found him there. Patient reports he did not lose consciousness and is unsure about hitting his head. He has a superficial skin lesion left lower arm. Difficulty movements at elbow and shoulder. Denies injury anywhere else., Difficulty speech, blurry vision etc. Patient is not a good historian and history is limited. Denies chest pain palpitations or shortness of breath. No abdominal pain nausea or vomiting. Denies any headache. Up-to-date with tetanus Occurred: just prior to arrival Reason for Fall: lost balance Injuries/Pain Location: upper extremity Loss of Consciousness: no loss of consciousness Quality: aching, dullness Severity of Pain-Max: moderate Severity of Pain-Current: mild Modifying Factors: Improves With: immobilization. Worsens With: movement Associated Symptoms (Fall): extremity injury, No abdominal pain, No confusion, No chest pain, No dizziness, No headache, No lightheadedness, No muscle spasms, No neck pain, No ringing in ears, No seizures, No shortness of breath, No slurre d speech, No trouble walking, No vomiting Allergies/Adverse Reactions: No Known Drug Allergies Allergy (Verified 08/10/21 17:07) Home Medications: Aspirin EC 81 mg [Ecotrin 81 mg] 81 mg PO DAILY 07/06/17 [History] Hydrocodone/Acetaminophen [Hydrocodon-Acetaminophn 10-325] 1 tab PO TID PRN 07/06/17 [History] Lisinopril 20 mg [Zestril 20 MG] 20 mg PO DAILY 07/06/17 [History] Simvastatin 40 mg [Zocor 40 mg] 40 mg PO HS 07/06/17 [History] Donepezil HCl 10 mg [Aricept 10 MG] 5 mg PO HS 01/23/18 [History] Citalopram Hydrobromide [Citalopram HBr] 40 mg PO DAILY 03/06/18 [History] Clopidogrel Bisulfate [Clopidogrel] 75 mg PO DAILY 09/20/19 [History] Tizanidine HCl 4 mg [Zanaflex 4 MG] 4 mg PO BID PRN 09/20/19 [History] Diclofenac Sodium Gel [Voltaren GEL] 100 gm TP HS 10/21/20 [History] Meclizine HCl 12.5 mg PO TID 10/21/20 [History] Hx Tetanus, Diphtheria Vaccination/Date Given: Yes Hx Influenza Vaccination/Date Given: Yes Hx Pneumococcal Vaccination/Date Given: Yes Travel Risk - International Travel Have you traveled outside of the country in past 3 weeks: No - Coronavirus Screening Are you exhibiting any of the following symptoms?: No Close contact with a COVID-19 positive Pt in past 14-21 Days: No - Vaccine Status Have you recieved a Covid-19 vaccination: Yes Gospel Singer: Moderna - Vaccination Dates Date of 2cond Vaccination (if applicable): 05/19/2021 - Review of Systems Constitutional: Fatigue, Weakness Eyes: No Symptoms Ears, Nose, & Throat: No Symptoms Respiratory: No Symptoms Cardiac: No Symptoms Abdominal/Gastrointestinal: No Symptoms Genitourinary Symptoms: No Symptoms Musculoskeletal: Fall, Injury, Joint Pain Skin: Skin Lesions Neurological: No Symptoms Psychological: No Symptoms Endocrine: No Symptoms Hematologic/Lymphatic: No Symptoms Immunological/Allergic: No Symptoms - Past Medical History Pertinent Past Medical History: Yes Neurological History: Dementia, Stroke, TIA ENT History: Cataracts Cardiac History: Coronary Artery Disease, High Cholesterol, Hypertension, Myocardial Infarction (ID) Respiratory History: No Pertinent History Endocrine Medical History: No Pertinent History Musculoskeletal History: Arthritis GI Medical History: GERD History: No Pertinent History Psycho-Social History: No Pertinent History Male Reproductive Disorders: No Pertinent History Other Medical History: Cardiac stent x 4. - Past Surgical History Past Surgical History: Yes Neuro Surgical History: No Pertinent History Cardiac: Cardiac Catheterization, Cardiac Stent Respiratory: No Pertinent History Gastrointestinal: Hernia Repair, Other Genitourinary: No Pertinent History Musculoskeletal: No Pertinent History Male Surgical History: No Pertinent History Other Surgical History: hiatal hernia surgery - Social History Smoking Status: Never smoker Exposure to second hand smoke: No Drug Use: none Patient Lives Alone: No - Nursing Vital Signs Nursing Vital Signs: Initial Vital Signs Temperature 98.0 F 08/10/21 16:55 Pulse Rate 102 H 08/10/21 16:55 Blood Pressure 146/79 08/10/21 16:55 O2 Sat by Pulse Oximetry 96 08/10/21 16:55 Pain Scale Pain Intensity 0 - [place] Coma Score Best Eye Response ([place]): (4) open spontaneously Best Verbal Response ([place]): (5) oriented Best Motor Response ([place]): (6) obeys commands [place] Total: 15 - Physical Exam General Appearance: no apparent distress, alert Head Injury: no evidence of injury, No Rodrigez's Sign, No contusions Eye Exam: PERRL/EOMI, eyes nml inspection ENT Exam: airway nml, evidence of ENT injury, No dental injury Neck Exam: supple, trachea midline, full range of motion, normal alignment, normal inspection, No focal neuro deficit Respiratory/Chest Exam: normal breath sounds, respiratory distress, No chest tenderness Cardiovascular Exam: normal heart sounds, regular rate/rhythm Gastrointestinal Exam: soft, normal bowel sounds, No tenderness Back Exam: normal inspection, normal range of motion, No CVA tenderness Extremity Exam: capillary refill <3 sec, bony point tenderness (Left elbow), evidence of injury ( superficial skin lesion just above left elbow) Neurologic Exam: alert, oriented x 3, cooperative, technical adjuster II-XII nml as tested, sensation nml, No motor deficits Skin Exam: normal color SpO2 Interpretation: normal SpO2: 96 O2 Delivery: Room Air Ordered Tests: Active Orders 24 hr Category Date Time Status CERVICAL SPINE WO CONTRAST [CT] Stat Exams 08/10/21 17:31 Taken ELBOW (MINIMUM 3 VIEWS) Stat Exams 08/10/21 Taken HEAD WITHOUT CONTRAST [CT] Stat Exams 08/10/21 17:31 Taken SHOULDER Stat Exams 08/10/21 Taken POCT GLUCOSE Stat Lab 08/10/21 17:21 Completed UA W/RFX UR CULTURE Stat Lab 08/10/21 19:31 Completed Lab/Rad Data: Laboratory Results 08/10/21 08/10/21 Range/Units 19:31 17:21 POC Glucometer 157 H (74 to 106) mg/dL Urine Color YELLOW (YELLOW) Urine Appearance CLEAR (CLEAR) Urine pH 5.0 (5-6) Ur Specific [place] 1.008 (1.005-1.025) Urine Protein NEGATIVE (Negative) Urine Ketones NEGATIVE (NEGATIVE) Urine Blood MODERATE (0-5) Corey/ul Urine Nitrite NEGATIVE (NEGATIVE) Urine Bilirubin NEGATIVE (NEGATIVE) Urine Urobilinogen NEGATIVE (0-1) mg/dL Ur Leukocyte Esterase NEGATIVE (NEGATIVE) Urine WBC (Auto) NONE (0-5) /HPF Urine RBC (Auto) 0-2 (0-2) /HPF U Epithel Cells (Auto) NONE (FEW) /HPF Urine Bacteria (Auto) NONE (NEGATIVE) /HPF Urine Mucus (Auto) SLIGHT (NEGATIVE) /HPF Urine Culture Reflexed NO (NO) Urine Glucose NEGATIVE (NEGATIVE) mg/dL - Progress Progress: improved Progress Note: 08/10/21 20:17 80 years old is evaluated for fall with questionable head injury. CT head and cervical spine are negative for any acute findings but preliminary report by Dr. Mercer. I have obtained x-rays of left shoulder and elbow with no obvious fracture reviewed by me, official report is pending. Although there is a questionable left surgical neck of humeral lesion. Placed in a sling. Wound is cleaned and Steri-Strips applied. Recommended walker for ambulation all the time. It was a clear mechanical fall, do not think needs any other work-up and is stable for discharge. Patient is at his baseline per . Counseled pt/family regarding: lab results, diagnosis, need for follow-up, rad results - Departure Departure Disposition: Home Clinical Impression: Fall, Skin tear of elbow without complication Condition: Stable Critical Care Time: No Referrals: HARDEEP VENTURA MD [Primary Care Provider] - Follow up/PCP as directed (Tomorrow as scheduled) TIBURCIO GONZALES NP [NON-STAFF PHY W/O PRIVILEGES] - Follow up/PCP as directed (Call tomorrow for appointment for reevaluation in 1 to 2 days) Instructions: Preventing Falls Additional Instructions: Use sling all the time. Take Tylenol as needed for pain. Keep your wound clean and follow-up outpatient with primary care. Follow-up with orthopedic surgery clinic for reevaluation next couple of days for left shoulder pain. Return to ER for worsening pain, difficulty breathing, intractable headache, confusion etc.
[2021-08-10 18:38] VITALS: BP 112/71
[2021-08-10 19:38] LABS: Appearance CLEAR (CLEAR); Bilirubin NEGATIVE (NEGATIVE); Blood MODERATE Ery/ul (0-5); Glucose NEGATIVE (NEGATIVE); Ketones NEGATIVE (NEGATIVE); Leukocyte Esterase NEGATIVE (NEGATIVE); Mucus SLIGHT /HPF (NEGATIVE); Nitrite NEGATIVE (NEGATIVE); Protein,Urine Dip NEGATIVE (Negative); RBC 0-2 /HPF (0-2); Specific Gravity 1.008 (1.005-1.025); Urobilinogen NEGATIVE mg/dL (0-1)
[2021-08-10 19:58] VITALS: PULSE 78
[2021-08-10 20:21] VITALS: O2SAT 96
--- NOTE | 2021-08-11 08:41 | XRAY ---
Indication: Status post fall. Alert and orientated. Multiple contiguous axial images obtained through the head without contrast. Comparison: October 21, 2020. Images through base of brain slightly degraded by motion artifact. Again age-appropriate global atrophy, mild periventricular degenerative micro-ischemia bilaterally, and 5 mm left mid browne radiata benign calcification. No acute intracranial hemorrhage, abnormal extra-axial fluid collection, or mass effect. Fourth ventricle is midline without hydrocephalus bony calvarium intact. Visualized paranasal sinuses and mastoid air cells are clear. Impression: Continued nonacute senile brain.
--- NOTE | 2021-08-11 08:43 | XRAY ---
Indication: Status post fall. Alert and oriented. Multiple contiguous axial images obtained through the cervical spine. Sagittal and coronal reformatted images obtained. Comparison: February 23, 2020. Osseous structures remain demineralized. Axial images negative for acute fracture, suspicious bony lesions, or spinal canal stenosis. There remains mild/moderate multilevel degenerative endplate spurring and moderate/advanced multilevel bilateral degenerative facet hypertrophy. Sagittal and coronal reformatted images again demonstrates lordotic straightening, positional versus paraspinal spasm. Stable 2 mm anterolisthesis of C7 on T1 and multilevel disc space loss. No acute compression fracture, subluxation, or jumped facet. Normal appearing craniocervical junction. Visualized noncontrasted soft tissues again demonstrates minimal right carotid calcifications. Lung apices are clear. Impression: Stable osteopenia, cervical lordotic straightening, multilevel degenerative spondylosis, and minimal grade 1 C7 spondylolisthesis. No new/acute abnormalities.
--- NOTE | 2021-08-11 08:53 | XRAY ---
Indication: Status post fall. Laceration. Comparison: None 3 view left shoulder demonstrates osteopenia, high riding humeral head commonly seen with rotator cuff tear, and advanced glenohumeral/acromioclavicular degenerative changes. No other bony, articular, or soft tissue abnormalities. CT may yield further information if there remains clinical concern for occult fracture.
--- NOTE | 2021-08-11 08:55 | XRAY ---
Indication: Status post fall. Laceration. Comparison: None 3 view left elbow demonstrates osteopenia, tiny olecranon process spur, and posterior lateral soft tissue swelling/laceration. No other bony, articular, or soft tissue abnormalities.
== END 2021-08-10 20:42 | disposition home or self-care (01) ==
LOC: ED 16:44
DX: S51.812A Laceration without foreign body of left forearm, initial encounter (principal); W01.190A Fall on same level from slipping, tripping and stumbling with subsequent striking against furniture, initial encounter; Z91.81 History of falling; Y92.009 Unspecified place in unspecified non-institutional (private) residence as the place of occurrence of the external cause; R53.1 Weakness; F03.90 Unspecified dementia, unspecified severity, without behavioral disturbance, psychotic disturbance, mood disturbance, and anxiety; Z79.891 Long term (current) use of opiate analgesic; Z79.899 Other long term (current) drug therapy; E78.5 Hyperlipidemia, unspecified; I10 Essential (primary) hypertension
CPT/HCPCS: 70450; 72125; 73030; 73080; 81001; 82947; 99284

== ENCOUNTER 2022-05-25 18:00 | Emergency (ER) | payer MEDICARE ==
--- NOTE | 2022-05-25 18:11 | ERPHSYRPT ---
- History of Present Illness Time Seen by Provider: 05/25/22 18:11 Source: patient, family, old records Exam Limitations: clinical condition Physician History: This is an 81-year-old white male patient of Dr. Ventura who was brought to the emergency department by his daughter secondary to concern for him having had a TIA, stroke or myocardial infarction. He had a history of all of those in the past. Patient is on Plavix. Patient became more awake and alert and responsive after he was placed into the emergency department bed. Patient denies chest pain. He denies pain of any kind. Patient was out in the barn and when dinnertime came they called out to the barn and he did not respond. Family member went up to find him and he was in the chair not responding but breathing on his own. His blood sugar on arrival to the emergency department is 91. Patient has a history of CVA, TIAs, recurrent weakness, hypertension, dementia and coronary artery disease. He has had cardiac stents in the past and has a history of gastroesophageal reflux disease. Timing/Duration: today Severity: moderate Associated Symptoms: weakness, No nausea, No vomiting, No abdominal pain, No shortness of breath, No chest pain Allergies/Adverse Reactions: No Known Drug Allergies Allergy (Verified 05/25/22 18:03) Home Medications: Aspirin EC 81 mg [Ecotrin 81 mg] 81 mg PO DAILY 07/06/17 [History] Hydrocodone/Acetaminophen [Hydrocodon-Acetaminophn 10-325] 1 tab PO TID PRN 07/06/17 [History] Lisinopril 20 mg [Zestril 20 MG] 20 mg PO DAILY 07/06/17 [History] Simvastatin 40 mg [Zocor 40 mg] 40 mg PO HS 07/06/17 [History] Donepezil HCl 10 mg [Aricept 10 MG] 5 mg PO HS 01/23/18 [History] Citalopram Hydrobromide [Citalopram HBr] 40 mg PO DAILY 03/06/18 [History] Clopidogrel Bisulfate [Clopidogrel] 75 mg PO DAILY 09/20/19 [History] Tizanidine HCl 4 mg [Zanaflex 4 MG] 4 mg PO BID PRN 09/20/19 [History] Diclofenac Sodium Gel [Voltaren GEL] 100 gm TP HS 10/21/20 [History] Meclizine HCl 12.5 mg PO TID 10/21/20 [History] Hx Tetanus, Diphtheria Vaccination/Date Given: Yes Hx Influenza Vaccination/Date Given: Yes Hx Pneumococcal Vaccination/Date Given: Yes Travel Risk - International Travel Have you traveled outside of the country in past 3 weeks: No - Coronavirus Screening Are you exhibiting any of the following symptoms?: No - Vaccine Status Have you recieved a Covid-19 vaccination: Yes 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 - Vaccination Dates Date of 2cond Vaccination (if applicable): 05/19/2021 - Review of Systems Constitutional: Weakness Eyes: No Symptoms Ears, Nose, & Throat: No Symptoms Respiratory: No Symptoms Cardiac: No Symptoms Abdominal/Gastrointestinal: No Symptoms Genitourinary Symptoms: No Symptoms Musculoskeletal: No Symptoms Skin: No Symptoms Neurological: Lethargy (Mild but arousable) Psychological: No Symptoms Endocrine: No Symptoms Hematologic/Lymphatic: No Symptoms Immunological/Allergic: No Symptoms All Other Systems: Reviewed and Negative - Past Medical History Pertinent Past Medical History: Yes Neurological History: Dementia, Stroke, TIA ENT History: Cataracts Cardiac History: Coronary Artery Disease, High Cholesterol, Hypertension, Myocardial Infarction ([place]) Respiratory History: No Pertinent History Endocrine Medical History: No Pertinent History Musculoskeletal History: Arthritis GI Medical History: GERD History: No Pertinent History Psycho-Social History: No Pertinent History Male Reproductive Disorders: No Pertinent History Other Medical History: Cardiac stent x 4. - Past Surgical History Past Surgical History: Yes Neuro Surgical History: No Pertinent History Cardiac: Cardiac Catheterization, Cardiac Stent Respiratory: No Pertinent History Gastrointestinal: Hernia Repair, Other Genitourinary: No Pertinent History Musculoskeletal: No Pertinent History Male Surgical History: No Pertinent History Other Surgical History: hiatal hernia surgery - Social History Smoking Status: Never smoker Exposure to second hand smoke: No Drug Use: none Patient Lives Alone: No - Nursing Vital Signs Nursing Vital Signs: Initial Vital Signs Temperature 98.2 F 05/25/22 18:04 Pulse Rate 54 L 05/25/22 18:04 Respiratory Rate 18 05/25/22 18:04 Blood Pressure 110/57 05/25/22 18:04 O2 Sat by Pulse Oximetry 95 05/25/22 18:04 Pain Scale Pain Intensity 0 - Physical Exam General Appearance: no apparent distress, lethargy (Mild but arousable) Eye Exam: PERRL/EOMI, eyes nml inspection Ears, Nose, Throat Exam: normal ENT inspection, moist mucous membranes Neck Exam: normal inspection, non-tender, supple, full range of motion Respiratory Exam: normal breath sounds, lungs clear, airway intact, No chest tenderness, No respiratory distress Cardiovascular Exam: regular rate/rhythm, normal heart sounds, normal peripheral pulses Gastrointestinal/Abdomen Exam: soft, normal bowel sounds, No tenderness Rectal Exam: not done Back Exam: normal inspection, normal range of motion, No CVA tenderness, No vertebral tenderness Extremity Exam: normal inspection, normal range of motion, pelvis stable Neurologic Exam: cooperative, ticket dispenser changer II-XII nml as tested, normal mood/affect, sensation nml, other (Cerebellar function and gait function was not tested.) Skin Exam: normal color, warm, dry Lymphatic Exam: No adenopathy SpO2 Interpretation: normal O2 Delivery: Room Air - Course Nursing assessment & vital signs reviewed: Yes EKG Interpreted by Me: RATE (50), Sinus Rhythm, LAFB, Right Bundle Branch Block, NORMAL ST-T, Other (No acute ischemic changes on today's EKG.) Ordered Tests: Active Orders 24 hr Category Date Time Status Assembly Stock Supervisor STAT Care 05/25/22 18:32 Active EKG-ER Only STAT Care 05/25/22 18:31 Active IV Insertion STAT Care 05/25/22 18:31 Active Pulse Oximetry (ED) STAT Care 05/25/22 18:31 Active HEAD WITHOUT CONTRAST [CT] Stat Exams 05/25/22 18:55 Taken BLOOD CULTURE Stat Lab 05/25/22 19:13 Received CBC W DIFF Stat Lab 05/25/22 18:35 Completed CMP Stat Lab 05/25/22 18:35 Completed MAGNESIUM Stat Lab 05/25/22 18:35 Completed NT PRO BNP Stat Lab 05/25/22 18:35 Completed TROPONIN Q4H Lab 05/25/22 18:35 Completed TROPONIN Q4H Lab 05/25/22 22:45 Ordered TROPONIN Q4H Lab 05/26/22 02:45 Ordered UA W/RFX CULTURE Stat Lab 05/25/22 19:23 Completed Urine Triage Profile Stat Lab 05/25/22 19:19 Completed Medication Summary Generic Name Dose Route Start Last Admin Trade Name Freq PRN Reason Stop Dose Admin Sodium Chloride 1,000 mls @ 100 mls/hr 05/25/22 18:45 05/25/22 18:41 Sodium Chloride 0.9% 1000 Ml IV 06/24/22 18:44 100 mls/hr .Q10H MEET Administration Sodium Chloride 500 mls @ 500 mls/hr 05/25/22 21:35 Sodium Chloride 0.9% 500 Ml IV 05/25/22 22:34 .Q1H ONE Lab/Rad Data: Laboratory Result Diagrams 05/25/22 18:35 05/25/22 18:35 Laboratory Results 05/25/22 05/25/22 05/25/22 Range/Units 19:40 19:23 19:19 WBC (4.0-10.5) x10^3/uL RBC (4.1-5.6) x10^6/uL Hgb (12.5-18.0) g/dL Hct (42-50) % MCV (78-100) fL MCH (26-32) pg MCHC (32-36) g/dL RDW (11.5-14.0) % Plt Count (150-450) x10^3/uL MPV (7.5-11.0) fL Gran % (36.0-66.0) % Immature Gran % (Auto) (0.00-0.4) % Nucleat RBC Rel Count (0.00-0.1) % Eos # (Auto) (0-0.5) x10^3/uL Immature Gran # (Auto) (0.00-0.03) x10^3u/L Absolute Lymphs (auto) (1.0-4.6) x10^3/uL Absolute Monos (auto) (0.0-1.3) x10^3/uL Absolute Nucleated RBC (0.00-0.01) x10^3u/L Lymphocytes % (24.0-44.0) % Monocytes % (0.0-12.0) % Eosinophils % (0.00-5.0) % Basophils % (0.0-0.4) % Absolute Granulocytes (1.4-6.9) x10^3/uL Basophils # (0-0.4) x10^3/uL Sodium (137-145) mmol/L Potassium (3.5-5.1) mmol/L Chloride (98-107) mmol/L Carbon Dioxide (22-30) mmol/L Anion Gap (5-15) MEQ/L BUN (9-20) mg/dL Creatinine (0.66-1.25) mg/dL Estimated GFR ML/MIN Glucose (74-106) mg/dL Calcium (8.4-10.2) mg/dL Magnesium (1.6-2.3) mg/dL Total Bilirubin (0.2-1.3) mg/dL AST (17-59) U/L ALT (0-50) U/L Alkaline Phosphatase (38-126) U/L Ammonia (9-30) umol/L Troponin I (0.000-0.034) ng/mL NT-Pro-B Natriuret Pep (0-1800) pg/mL Serum Total Protein (6.3-8.2) g/dL Albumin (3.5-5.0) g/dL Urinalys Dipstick Clnc MAIN LAB Urine Color DARK YELLOW (YELLOW) Urine Appearance CLEAR (CLEAR) Urine pH 5.5 (5-6) Ur Specific Landenberg >=1.030 (1.005-1.025) POC Urine Protein Conf TRACE (Negative) Urine Ketones TRACE (NEGATIVE) Urine Nitrite NEGATIVE (NEGATIVE) Urine Bilirubin SMALL (NEGATIVE) Urine Urobilinogen 0.2 (0-1) mg/dL Urine Leukocytes NEGATIVE (NEGATIVE) Urine WBC (Auto) 3-5 (0-5) /HPF Urine RBC (Auto) 3-5 (0-2) /HPF U Hyaline Cast (Auto) 6-10 (0-2) /LPF U Epithel Cells (Auto) RARE (FEW) /HPF Urine Bacteria (Auto) NONE SEEN (NEGATIVE) /HPF Urine RBC NEGATIVE (0-5) Corey/ul Urine Mucus (Auto) SLIGHT (NEGATIVE) /HPF Urine Sperm (Auto) PRESENT (NEGATIVE) /HPF Ur Culture Indicated? NO Urine Glucose NEGATIVE (NEGATIVE) mg/dL Urine Opiates Level POSITIVE (NEGATIVE) Ur Methadone NEGATIVE (NEGATIVE) Urine Barbiturates NEGATIVE (NEGATIVE) Ur Phencyclidine (PCP) NEGATIVE (NEGATIVE) Urine Amphetamine NEGATIVE (NEGATIVE) U Benzodiazepine Level NEGATIVE (NEGATIVE) Urine Cocaine NEGATIVE (NEGATIVE) Urine Marijuana (THC) NEGATIVE (NEGATIVE) Influenza Type A Ag NEGATIVE (NEGATIVE) Influenza Type B Ag NEGATIVE (NEGATIVE) RSV (PCR) NEGATIVE (Negative) SARS-CoV-2 (PCR) NEGATIVE (NEGATIVE) 05/25/22 05/25/22 05/25/22 Range/Units 19:13 18:35 18:35 WBC (4.0-10.5) x10^3/uL RBC (4.1-5.6) x10^6/uL Hgb (12.5-18.0) g/dL Hct (42-50) % MCV (78-100) fL MCH (26-32) pg MCHC (32-36) g/dL RDW (11.5-14.0) % Plt Count (150-450) x10^3/uL MPV (7.5-11.0) fL Gran % (36.0-66.0) % Immature Gran % (Auto) (0.00-0.4) % Nucleat RBC Rel Count (0.00-0.1) % Eos # (Auto) (0-0.5) x10^3/uL Immature Gran # (Auto) (0.00-0.03) x10^3u/L Absolute Lymphs (auto) (1.0-4.6) x10^3/uL Absolute Monos (auto) (0.0-1.3) x10^3/uL Absolute Nucleated RBC (0.00-0.01) x10^3u/L Lymphocytes % (24.0-44.0) % Monocytes % (0.0-12.0) % Eosinophils % (0.00-5.0) % Basophils % (0.0-0.4) % Absolute Granulocytes (1.4-6.9) x10^3/uL Basophils # (0-0.4) x10^3/uL Sodium 136 L (137-145) mmol/L Potassium 4.1 (3.5-5.1) mmol/L Chloride 104 (98-107) mmol/L Carbon Dioxide 27 (22-30) mmol/L Anion Gap 9.3 (5-15) MEQ/L BUN 18 (9-20) mg/dL Creatinine 1.11 (0.66-1.25) mg/dL Estimated GFR > 60.0 ML/MIN Glucose 111 H (74-106) mg/dL Calcium 8.3 L (8.4-10.2) mg/dL Magnesium 2.0 (1.6-2.3) mg/dL Total Bilirubin 1.00 (0.2-1.3) mg/dL AST 22 (17-59) U/L ALT 14 (0-50) U/L Alkaline Phosphatase 60 (38-126) U/L Ammonia < 9 L (9-30) umol/L Troponin I < 0.012 (0.000-0.034) ng/mL NT-Pro-B Natriuret Pep 699 (0-1800) pg/mL Serum Total Protein 6.2 L (6.3-8.2) g/dL Albumin 3.9 (3.5-5.0) g/dL Urinalys Dipstick Clnc Urine Color (YELLOW) Urine Appearance (CLEAR) Urine pH (5-6) Ur Specific Landenberg (1.005-1.025) POC Urine Protein Conf (Negative) Urine Ketones (NEGATIVE) Urine Nitrite (NEGATIVE) Urine Bilirubin (NEGATIVE) Urine Urobilinogen (0-1) mg/dL Urine Leukocytes (NEGATIVE) Urine WBC (Auto) (0-5) /HPF Urine RBC (Auto) (0-2) /HPF U Hyaline Cast (Auto) (0-2) /LPF U Epithel Cells (Auto) (FEW) /HPF Urine Bacteria (Auto) (NEGATIVE) /HPF Urine RBC (0-5) Corey/ul Urine Mucus (Auto) (NEGATIVE) /HPF Urine Sperm (Auto) (NEGATIVE) /HPF Ur Culture Indicated? Urine Glucose (NEGATIVE) mg/dL Urine Opiates Level (NEGATIVE) Ur Methadone (NEGATIVE) Urine Barbiturates (NEGATIVE) Ur Phencyclidine (PCP) (NEGATIVE) Urine Amphetamine (NEGATIVE) U Benzodiazepine Level (NEGATIVE) Urine Cocaine (NEGATIVE) Urine Marijuana (THC) (NEGATIVE) Influenza Type A Ag (NEGATIVE) Influenza Type B Ag (NEGATIVE) RSV (PCR) (Negative) SARS-CoV-2 (PCR) (NEGATIVE) 05/25/22 Range/Units 18:35 WBC 3.6 L (4.0-10.5) x10^3/uL RBC 3.68 L (4.1-5.6) x10^6/uL Hgb 11.6 L (12.5-18.0) g/dL Hct 35.2 L (42-50) % MCV 95.7 (78-100) fL MCH 31.5 (26-32) pg MCHC 33.0 (32-36) g/dL RDW 12.7 (11.5-14.0) % Plt Count 109 L (150-450) x10^3/uL MPV 9.4 (7.5-11.0) fL Gran % 43.7 (36.0-66.0) % Immature Gran % (Auto) 0.0 (0.00-0.4) % Nucleat RBC Rel Count 0.0 (0.00-0.1) % Eos # (Auto) 0.08 (0-0.5) x10^3/uL Immature Gran # (Auto) 0.00 (0.00-0.03) x10^3u/L Absolute Lymphs (auto) 1.53 (1.0-4.6) x10^3/uL Absolute Monos (auto) 0.36 (0.0-1.3) x10^3/uL Absolute Nucleated RBC 0.00 (0.00-0.01) x10^3u/L Lymphocytes % 43.1 (24.0-44.0) % Monocytes % 10.1 (0.0-12.0) % Eosinophils % 2.3 (0.00-5.0) % Basophils % 0.8 (0.0-0.4) % Absolute Granulocytes 1.55 (1.4-6.9) x10^3/uL Basophils # 0.03 (0-0.4) x10^3/uL Sodium (137-145) mmol/L Potassium (3.5-5.1) mmol/L Chloride (98-107) mmol/L Carbon Dioxide (22-30) mmol/L Anion Gap (5-15) MEQ/L BUN (9-20) mg/dL Creatinine (0.66-1.25) mg/dL Estimated GFR ML/MIN Glucose (74-106) mg/dL Calcium (8.4-10.2) mg/dL Magnesium (1.6-2.3) mg/dL Total Bilirubin (0.2-1.3) mg/dL AST (17-59) U/L ALT (0-50) U/L Alkaline Phosphatase (38-126) U/L Ammonia (9-30) umol/L Troponin I (0.000-0.034) ng/mL NT-Pro-B Natriuret Pep (0-1800) pg/mL Serum Total Protein (6.3-8.2) g/dL Albumin (3.5-5.0) g/dL Urinalys Dipstick Clnc Urine Color (YELLOW) Urine Appearance (CLEAR) Urine pH (5-6) Ur Specific Landenberg (1.005-1.025) POC Urine Protein Conf (Negative) Urine Ketones (NEGATIVE) Urine Nitrite (NEGATIVE) Urine Bilirubin (NEGATIVE) Urine Urobilinogen (0-1) mg/dL Urine Leukocytes (NEGATIVE) Urine WBC (Auto) (0-5) /HPF Urine RBC (Auto) (0-2) /HPF U Hyaline Cast (Auto) (0-2) /LPF U Epithel Cells (Auto) (FEW) /HPF Urine Bacteria (Auto) (NEGATIVE) /HPF Urine RBC (0-5) Corey/ul Urine Mucus (Auto) (NEGATIVE) /HPF Urine Sperm (Auto) (NEGATIVE) /HPF Ur Culture Indicated? Urine Glucose (NEGATIVE) mg/dL Urine Opiates Level (NEGATIVE) Ur Methadone (NEGATIVE) Urine Barbiturates (NEGATIVE) Ur Phencyclidine (PCP) (NEGATIVE) Urine Amphetamine (NEGATIVE) U Benzodiazepine Level (NEGATIVE) Urine Cocaine (NEGATIVE) Urine Marijuana (THC) (NEGATIVE) Influenza Type A Ag (NEGATIVE) Influenza Type B Ag (NEGATIVE) RSV (PCR) (Negative) SARS-CoV-2 (PCR) (NEGATIVE) - Progress Progress: improved, re-examined Progress Note: 05/25/22 21:36 CT scan of the head without contrast is negative for any acute intracranial a bnormality. Discussed with : Jessy (I reviewed patient work-up results history and physical exam with Dr. Ventura. Okay to discharge to home) Counseled pt/family regarding: lab results, diagnosis, need for follow-up, rad results - Departure Departure Disposition: Home Clinical Impression: TIA (transient ischemic attack), Weakness, Dehydration, mild Condition: Stable Critical Care Time: No Referrals: HARDEEP VENTURA MD [Primary Care Provider] - Follow up/PCP as directed Additional Instructions: Drink plenty of fluids. Take your medication as prescribed. Follow-up with your primary care physician for further evaluation management.
[2022-05-25 18:39] VITALS: O2SAT 97
[2022-05-25] MEDS ORDERED: Sodium Chloride 0.9% 1000 ML 1,000 ML ONE (18:41)
[2022-05-25 18:42] LABS: Absolute Neutrophil Ct (ANC) 1.55 x10^3/uL (1.4-6.9); Basophil (Absolute #) 0.03 x10^3/uL (0-0.4); Eosinophil % 2.3 % (0.00-5.0); Eosinophil (Absolute #) 0.08 x10^3/uL (0-0.5); Hematocrit 35.2 % (42-50); Hemoglobin 11.6 g/dL (12.5-18.0); Lymphocyte (Absolute #) 1.53 x10^3/uL (1.0-4.6); Lymphocytes % 43.1 % (24.0-44.0); Mean Cell Volume 95.7 fL (78-100); Mean Corpuscular Hemoglobin 31.5 pg (26-32); Mean Platelet Volume 9.4 fL (7.5-11.0); Monocyte (Absolute #) 0.36 x10^3/uL (0.0-1.3); Monocytes % 10.1 % (0.0-12.0); Neutrophil % 43.7 % (36.0-66.0); Platelet Count 109 x10^3/uL (150-450); Red Blood Count 3.68 x10^6/uL (4.1-5.6); Red Cell Distribution Width 12.7 % (11.5-14.0); White Blood Count 3.6 x10^3/uL (4.0-10.5)
[2022-05-25] MEDS ORDERED: Sodium Chloride 0.9% 1000 ML 1,000 ML IV SCH (18:45)
[2022-05-25 19:14] LABS: ALBUMIN 3.9 g/dL (3.5-5.0); ALKALINE PHOSPHATASE 60 U/L (38-126); ANION GAP 9.3 MEQ/L (5-15); BLOOD UREA NITROGEN 18 mg/dL (9-20); CHLORIDE 104 mmol/L (98-107); Calcium 8.3 mg/dL (8.4-10.2); Carbon Dioxide 27 mmol/L (22-30); Creatinine 1 1.11 mg/dL (0.66-1.25); EST GLOMERULAR FILTRATION RATE > 60.0 ML/MIN; Glucose 111 mg/dL (74-106); NT PRO BNP 699 pg/mL (0-1800); Potassium 4.1 mmol/L (3.5-5.1); SGOT/AST 22 U/L (17-59); SGPT/ALT 14 U/L (0-50); SODIUM 136 mmol/L (137-145); Total Protein 6.2 g/dL (6.3-8.2)
[2022-05-25 20:11] LABS: Epithelial Cells RARE /HPF (FEW); Mucus SLIGHT /HPF (NEGATIVE); Sperm PRESENT /HPF (NEGATIVE)
[2022-05-25 20:12] LABS: Appearance CLEAR (CLEAR); Bacteria NONE SEEN /HPF (NEGATIVE); Bilirubin SMALL (NEGATIVE); Dipstick done @ ? MAIN LAB; Glucose NEGATIVE (NEGATIVE); Ketones TRACE (NEGATIVE); Nitrite NEGATIVE (NEGATIVE); Ph 5.5 (5-6); Protein,Urine Dip TRACE (Negative); RBC NEGATIVE Ery/ul (0-5); Specific Gravity >=1.030 (1.005-1.025); Urobilinogen 0.2 mg/dL (0-1)
[2022-05-25 20:13] LABS: Urine Cultured Indicated? NO
[2022-05-25 20:19] LABS: INFLUENZA A NEGATIVE (NEGATIVE); INFLUENZA B NEGATIVE (NEGATIVE); RESPIRATORY SYNCTIAL VIRUS NEGATIVE (Negative); SARS-CoV-2 Xpert Express NEGATIVE (NEGATIVE)
[2022-05-25 20:20] LABS: Barbiturate,Urine NEGATIVE (NEGATIVE); Cocaine,Urine NEGATIVE (NEGATIVE); Methadone,Urine NEGATIVE (NEGATIVE); Opiate,Urine POSITIVE (NEGATIVE); THC,Urine NEGATIVE (NEGATIVE)
[2022-05-25 20:24] LABS: Amphetamine,Urine NEGATIVE (NEGATIVE); Benzodiazepine,Urine NEGATIVE (NEGATIVE)
[2022-05-25 20:26] LABS: PCP,Urine NEGATIVE (NEGATIVE)
[2022-05-25] MEDS ORDERED: Sodium Chloride 0.9% 500 ML 500 ML IV ONE (21:35)
[2022-05-25 22:05] VITALS: BP 121/67; PULSE 44
--- NOTE | 2022-05-26 08:46 | XRAY ---
Indication: Unresponsive. Multiple contiguous axial images obtained through the head without contrast. Comparison: August 10, 2021 Again age-appropriate global atrophy, mild periventricular degenerative micro-ischemia bilaterally, and 5 mm benign calcification left thalamus. No acute intracranial hemorrhage, abnormal extra-axial fluid collection, or mass effect. Fourth ventricle is midline without hydrocephalus. Bony calvarium intact. Visualized paranasal sinuses and mastoid air cells are clear. Impression: Continued nonacute senile brain.
== END 2022-05-25 22:40 | disposition home or self-care (01) ==
LOC: ED 18:00
DX: G45.9 Transient cerebral ischemic attack, unspecified (principal); R53.1 Weakness; E86.0 Dehydration; R40.4 Transient alteration of awareness; I10 Essential (primary) hypertension; E78.5 Hyperlipidemia, unspecified; Z79.02 Long term (current) use of antithrombotics/antiplatelets; Z79.899 Other long term (current) drug therapy; Z20.828 Contact with and (suspected) exposure to other viral communicable diseases
CPT/HCPCS: 0241U; 36000; 36415; 70450; 80053; 80307; 81015; 82140; 83735; 83880; 84484; 85025; 87040; 93005; 93041; 94760; 96360; 96361; 99284

== ENCOUNTER 2023-11-20 10:02 | Day surgery (SDC) | payer MEDICARE ==
--- NOTE | 2023-11-20 09:17 | HP ---
DATE OF SURGERY: 11/20/2023 HISTORY OF PRESENT ILLNESS: The patient is an 82-year-old with some dysphagia upper esophagus. No prior upper endoscopy. Family history negative for esophageal cancer. PAST MEDICAL HISTORY: Hypertension, heart disease, arthritis, constipation, hyperlipidemia, anxiety and depression. PAST SURGICAL HISTORY: Hernia repair. Cardiac catheterization and stent. MEDICATIONS: Metoprolol. Diclofenac. Stool softener. Lisinopril. Metamucil. Proctofoam topical cream. Hydrocodone. Antivert. Aricept. Tizanidine. Plavix. ALLERGIES: NKDA. FAMILY HISTORY: Dad had lung cancer. SOCIAL HISTORY: No smoking or alcohol abuse. REVIEW OF SYSTEMS: Twelve systems reviewed. No chest pain or palpitations. Other systems negative or noncontributory as above and per preadmission questionnaire. PHYSICAL EXAMINATION: Height 5 feet 9 inches. BMI 26.58. GENERAL: No acute distress. HEENT: Sclerae nonicteric. EOMI. Oral mucous membranes moist. NECK: No JVD. CHEST: Equal excursion, nonlabored breathing. CVS: Regular rate and rhythm. ABDOMEN: Soft. EXTREMITIES: No cyanosis or edema. NEURO: Alert, oriented, moving extremities symmetrically. PSYCH: Appropriate mood and affect. SKIN: Dry. IMPRESSION: Dysphagia. He is in need of EGD possible biopsy possible dilatation. Most of his symptoms are upper esophagus. Risk of bleeding or infection, risk of bowel injury or perforation possibly requiring further procedure or transfer for stent placement, possible no improvement in his swallowing possibly requiring other procedures, dilator or referral. Risk of no narrowing to dilate, possible neurological or functional problem that dilatation may not benefit. If dilatation is performed and improves swallowing might need repeated again down the road, all of the above but not limited to. He agreed to proceed. Otherwise, we will proceed with EGD possible biopsy possible dilatation as an outpatient. Otherwise, continue medications for heart disease, depression, hypertension and hyperlipidemia.
[2023-11-20 10:37] VITALS: RESP 18; O2SAT 97
[2023-11-20] MEDS: Lactated Ringers 1,000 ML IV SCH (10:39)
[2023-11-20] MEDS ORDERED: Xylocaine-Mpf 2% 5 Ml Vial ONE (11:29)
[2023-11-20] MEDS ORDERED: DIPRIVAN 200 MG/20 ML IV ONE (11:30)
[2023-11-20] MEDS ORDERED: Amidate 20 MG/10 ML IV ONE (11:31)
[2023-11-20 13:08] VITALS: TEMP 97.8
[2023-11-20 13:25] VITALS: BP 172/88; PULSE 68
--- NOTE | 2023-11-21 08:21 | OP ---
SURGERY DATE/TIME: 11/20/2023 1140 PREOPERATIVE DIAGNOSIS: Dysphagia. POSTOPERATIVE DIAGNOSES: 1) Proximal esophageal narrowing and spasm requiring dilatation. 2) Mild gastritis. 3) Mild distal esophageal erythema versus short segment of early Gifford's esophagus versus normal variation of gastroesophageal junction, path pending. PROCEDURES: 1) EGD with cold biopsy to antrum to evaluate for Helicobacter pylori. 2) Cold biopsy distal esophagus to evaluate for Gifford's esophagus versus normal variation of gastroesophageal junction versus early esophagitis. 3) Esophageal dilatation proximal esophageal narrowing (size 20 balloon dilator). 4) ASA Class III. SURGEON: Dr. Barrera Marie. ANESTHESIA: MAC. ESTIMATED BLOOD LOSS: Minimal. INDICATIONS: As noted above. Risks and benefits explained in detail and not limited to and consent obtained. DESCRIPTION OF PROCEDURE AND FINDINGS: The patient taken to the endoscopy room and MAC anesthesia introduced. After official time out and no disagreement with planned procedure, bite block positioned. Video gastroscope passed down through what seemed to be a little bit of narrowing and spasm proximal esophagus without any evidence of any obvious mass to biopsy, some narrowing where he was having symptoms. It was felt this warranted dilatation procedure. The scope passed through the gastroesophageal junction at about 42 cm, down through the patent pylorus to the junction of the third and fourth portion of duodenum. No signs of any duodenal ulcer or masses. The scope is pulled back in the stomach. He did have some gastric erythema. He had some erosions, erosive gastritis. On retroflex, the gastroesophageal junction fairly snug against the scope. He had some prior reflux repair and maybe a slight weakness but no large hiatal hernia. The scope pulled back. The gastroesophageal junction about 42 cm. There was a little bit of salmon-pink mucosa but whether this is just kind of the angle of the patient's gastroesophageal junction and normal variation versus a very short segment of early Gifford's esophagus a cold biopsy taken of the little salmon-pink mucosa. Otherwise, no signs of any obvious other masses or mucosal lesions. There was proximal esophageal narrowing and spasm. It was felt this warranted dilatation. There is nothing to biopsy in that area, no lesions or masses just the narrowing and spasm. The scope passed back down in the stomach. A 20 balloon catheter carefully inserted and then pulled back up to the proximal narrowed area. It was slowly and carefully inflated first stage about 30 seconds, second stage for about 30 seconds and final stage for approximately 2 minutes size 20 balloon dilator. The balloon was decompressed and withdrawn. The scope much more easily passed through this area. Down in the stomach it was carefully pulled back. There were no signs of any full thickness issues or injury secondary to dilatation. The patient tolerated the procedure well. There were no immediate complications. I went to look for family out in the waiting area.
== END 2023-11-20 13:20 | disposition home or self-care (01) ==
LOC: SDC 10:02
PROVIDERS: ATTEND Surgery
DX: K29.70 Gastritis, unspecified, without bleeding (principal); R13.10 Dysphagia, unspecified; Z80.1 Family history of malignant neoplasm of trachea, bronchus and lung; K22.2 Esophageal obstruction; K22.89 Other specified disease of esophagus
CPT/HCPCS: 93005; 99100; C1726; J2704